=== PATIENT | male | born 1950 | race Caucasian/White ===

== ENCOUNTER 2018-04-21 16:11 | Emergency (ER) | payer MEDICARE, MEDICAID ==
--- NOTE | 2018-04-21 17:29 | ED ---
HPI Chest Pain - HPI Summary HPI Summary: A 67 y/o male brought in by [facility] ambulance presents to [facility] with a chief complaint of CP since 15:20 that has since resolved. The patient was given four aspirin and two NTG in the ambulance, but states his pain was not resolved until later in the ED. He rated his pain as a 4/10 in the ambulance. The patient , after working out and sweating on an elliptical, bent over to tie his shoe, and felt CP. He denies any radiating pain. He tried to rest but that would not alleviate his pain. The patient states that he could not find out what his problem was, which made the patient anxious. The patient has a Hx of HTN and HLD and takes medication. He sees Dr. Lopez once per year and states that he has had a "scan showing some blockage and valve issues". The patient usually works out every other day but [facility] worked out two days in a row. The patient states that the only similar situation was when he was brought in by ambulance to the ED in 2010 for weakness and dizziness. The patient reports a FHx of cardiac disease. Aggravating factors are bending over and deep breaths. There are no alleviating factors. The patient reports being able to ambulate without any issues. The patient is a nonsmoker and denies leg swelling. - History of Current Complaint Chief Complaint: EDChestPainROMI Time Seen by Provider: 04/21/18 17:12 Hx Obtained From: Patient Timing: Intermittent Pain Intensity: 4 - DECK HAND Pain Scale Used: 0-10 Numeric Chest Pain Location: Diffuse Chest Pain Radiates: No Character: Other: - disturbance Aggravating Factor(s): Position - bending over, Deep Breaths Alleviating Factor(s): Nothing Associated Signs and Symptoms: Positive: Diaphoresis. Negative: Swelling, Fever - Allergy/Home Medications Allergies/Adverse Reactions: Allergies Allergy/AdvReac Type Severity Reaction Status Date / Time lisinopril Allergy Coughing Verified 04/21/18 17:07 niacin Allergy Rash Verified 04/21/18 17:07 Home Medications: Home Medications Aspirin EC TAB* [Ecotrin EC Low Dose 81 MG*] 81 mg PO DAILY 04/21/18 [History Confirmed 04/21/18] Cholecalciferol (Vitamin D3) [Vitamin D3] 2,000 unit PO DAILY 04/21/18 [History Confirmed 04/21/18] Icosapent Ethyl [Vascepa] 2 gm PO BID 04/21/18 [History Confirmed 04/21/18] LoraTADine TAB(NF) [Claritin 10 MG TAB(NF)] 10 mg PO DAILY 04/21/18 [History Confirmed 04/21/18] Losartan TAB* [Cozaar TAB*] 50 mg PO DAILY 04/21/18 [History Confirmed 04/21/18] Methylphenidate HCl [Methylphenidate ER] 20 mg PO DAILY 04/21/18 [History Confirmed 04/21/18] Multivitamins/Minerals TAB* [Theragran/minerals TAB*] 1 tab PO DAILY 04/21/18 [ History Confirmed 04/21/18] Rosuvastatin (NF) [Crestor (NF)] 10 mg PO DAILY 04/21/18 [History Confirmed ] Rosuvastatin (NF) [Crestor (NF)] 10 mg PO DAILY 04/21/18 [History Confirmed ] Testosterone GEL (NF) [Androgel (NF)] 100 mg TOPICAL DAILY 04/21/18 [History Confirmed 04/21/18] Triamterene/HCTZ 37.5-25 MG* [Dyazide CAP*] 1 cap PO DAILY 04/21/18 [History Confirmed 04/21/18] Ubidecarenone/Vit E/Vit E Mix [Co-Enzyme Q10 100 mg Softgel] 1 cap PO DAILY [History Confirmed 04/21/18] Zolpidem TAB* [Ambien*] 5 - 10 mg PO BEDTIME PRN 04/21/18 [History Confirmed ] PMH/Surg Hx/FS Hx/Imm Hx Endocrine/Hematology History: Denies: Hx Diabetes Cardiovascular History: Reports: Hx Hypercholesterolemia, Hx Hypertension Denies: Hx Pacemaker/ICD History: Denies: Hx Renal Disease Sensory History: Denies: Hx Hearing Aid Psychiatric History: Reports: Hx Attention Deficit Hyperactivity Disorder Denies: Hx Panic Disorder - Surgical History Surgery Procedure, Year, and Place: STAPECTOMY - W/ STAPES IMPLANT 1991 OR 1992 - [facility]IMENEZ TEFLOW/PLATINIUM IAM PROSTHESIS - NON FERROUS XOMED - 1.5T ONLY - REVIEWED BY DR ABBOTT( LETTER FROM SURGEON SCANNED INTO EMR). DEVIATED SEPTUM Infectious Disease History: No Infectious Disease History: Denies: Traveled Outside the [place] in Last 30 Days - Family History Known Family History: Positive: Cardiac Disease, Diabetes - Social History Alcohol Use: Daily Substance Use Type: Reports: Marijuana Hx Tobacco Use: No Smoking Status (MU): Never Smoked Tobacco Review of Systems Positive: Skin Diaphoresis - DECK HAND. Negative: Fever Positive: Chest Pain - DECK HAND, resolved in ED Negative: Edema All Other Systems Reviewed And Are Negative: Yes Physical Exam - Summary Physical Exam Summary: Appearance: The patient is well-nourished in no acute distress and in no acute pain. Skin: The skin is warm and dry and skin color reflects adequate perfusion. HEENT: The head is normocephalic and atraumatic. The pupils are equal and reactive. The conjunctivae are clear and without drainage. Nares are patent and without drainage. Mouth reveals moist mucous membranes and the throat is without erythema and exudate. The external ears are intact. The ear canals are patent and without drainage. The tympanic membranes are intact. Neck: The neck is supple with full range of motion and non-tender. There are no carotid bruits. There is no neck vein distension. Respiratory: Chest is non-tender. Lungs are clear to auscultation and breath sounds are symmetrical and equal. Cardiovascular: Heart is regular rate and rhythm. There is no murmur or rub auscultated. There is no peripheral edema and pulses are symmetrical and equal. Abdomen: The abdomen is soft and non-tender. There are normal bowel sounds heard in all four quadrants and there is no organomegaly palpated. Musculoskeletal: There is no back tenderness noted. Extremities are non-tender with full range of motion. There is good capillary refill. There is no peripheral edema or calf tenderness elicited. Neurological: Patient is alert and oriented to person, place and time. The patient has symmetrical motor strength in all four extremities. Cranial nerves are grossly intact. Deep tendon reflexes are symmetrical and equal in all four extremities. Psychiatric: The patient has an appropriate affect and does not exhibit any anxiety or depression. Triage Information Reviewed: Yes Vital Signs On Initial Exam: Initial Vitals Temp Pulse Resp BP Pulse Ox 97.7 F 82 16 135/86 97 04/21/18 16:13 04/21/18 16:13 04/21/18 16:13 04/21/18 16:13 04/21/18 16:13 Vital Signs Reviewed: Yes Diagnostics - Vital Signs Vital Signs Temp Pulse Resp BP Pulse Ox 04/21/18 17:03 85 15 116/65 97 04/21/18 17:01 76 97 04/21/18 16:13 97.7 F 82 16 135/86 97 - Laboratory Result Diagrams: 04/21/18 17:56 04/21/18 17:56 Lab Statement: Any lab studies that have been ordered have been reviewed, and results considered in the medical decision making process. - Radiology CXR Radiology Interpretation Completed By: Radiologist Summary of Radiographic Findings: No radiographic evidence of acute cardiopulmonary disease. ED physician has reviewed this imaging report. - EKG 16:19 Cardiac Rate: NL - 77 bpm EKG Rhythm: Sinus Rhythm Summary of EKG Findings: Normal sinus rhythm, normal ST, no ectopy, no STEMI. Similar to previous EKG done 01/28/11 Re-Evaluation - Re-Evaluation First Eval Re-Evaluation Time: 18:55 Chest Pain Course/Dx - Course Course Of Treatment: Mr. Villalobos presented to the emergency department with an atypical chest pain that did come on while he was exercising. He has risk factors of hypertension and high cholesterol as well as a family history. He lost 25 pounds over the last year or so by taking up an exercise program. He generally exercises every other day and exercised yesterday without any complaints. He was feeling improved by the time he got to the emergency department although he states that he did not get immediate improvement with EMS treatment. His initial laboratory work including a d-dimer and troponin are negative and he is awaiting a delayed troponin at this time - Diagnoses Provider Diagnoses: Chest pain Discharge - Sign-Out/Discharge Documenting (check all that apply): Sign-Out Patient Signing out patient TO: Dangelo Macias - Discharge Plan Condition: Stable Referrals: Good Hernandez MD [Primary Care Provider] - - Billing Disposition and Condition Condition: STABLE - Attestation Statements Document Initiated by Tuan: Yes Documenting Scribe: David Rosario Provider For Whom Tuan is Documenting (Include Credential): Dangelo Russell MD Scribe Attestation: David Lugo scribed for Dangelo Russell MD on 04/21/18 at 1903. Scribe Documentation Reviewed: Yes Provider Attestation: The documentation as recorded by the scribe, David Rosario accurately reflects the service I personally performed and the decisions made by me, Dangelo Russell MD Status of Scribe Document: Viewed
--- OUTSIDE RECORDS SUMMARY | 2018-04-21 17:46 | XMS REPORT | Continuity of Care Document ---
:1950 External Reference #:[id number] Author Name Sheba Rouse Care Team Providers Name Role Phone Good Hernandez MD Primary Care Physician Unavailable Payers Type Date Identification Numbers Payment Provider Subscriber Policy Number: [id number] Medicare Ranjan Villalobos PayID: [id number] [address] [place] [address] Expires: 2017 Policy Number: [id number] Medicare Ranjan Villalobos PayID: [id number] [address] [place] [address] Effective: 2011 Policy Number: [id number] [employer] Ranjan Villalobos Expires: 2013 PayID: [id number] [address] [address] [place] [address] Effective: 2009 Policy Number: [id number] Medicaid Ranjan Villalobos Expires: 2011 PayID: [id number] [address] [place] [address] Effective: 2007 Policy Number: [id number] [employer] [place] Ranjan Villalobos Expires: 2010 PayID: [id number] [address] [address] [place] [address] Policy Number: [id number] Medicaid Ranjan Villalobos Group Name: 1 1 [address] PayID: [id number] [place] [address] Advance Directives Type Date Description Status Comment Other Directive 05/06/2017 Health Care Proxy Current and Verified Problems Date Description Provider Status Onset: 04/04/2007 Pure hypercholesterolemia Arcadio Renee M.D.,FACP Onset: 04/04/2007 Benign essential hypertension Good Hernandez Active Christie,FACP Onset: 04/04/2007 Attention deficit hyperactivity Good Hernandez Active disorder Christie,FACP Onset: 12/22/2007 Coronary arteriosclerosis Arcadio Renee M.D., FACP Note: on CTA Onset: 05/11/2012 Insomnia Good Hernandez M.D.,FACP Active Onset: 05/13/2012 Benign prostatic hypertrophy Good Hernandez M.D.,MERVINP Active without outflow obstruction Onset: 02/20/2013 Impotence of organic origin Good Hernandez M.D.,FACP Active Onset: 04/29/2015 Empty sella syndrome Good Hernandez M.D.,FACP Active Note: incidental on MRI Onset: 07/24/2016 Aortic valve stenosis Good Hernandez M.D.,FACP Active Note: mild Onset: 01/07/2017 Obstructive sleep apnea Good Hernandez M.D.,HUBER Active syndrome Note: on CPAP Onset: 02/14/2008 Mixed hyperlipidemia Good Hernandez M.D.,FACP Inactive Inactive: 08/19/2012 Onset: 08/12/2016 Difficulty breathing Fadia Khan MD Inactive Inactive: 10/08/2016 Onset: 08/19/2012 Impaired fasting glycaemia Good Hernandez M.D.,FACP Resolved Resolved: 07/21/2017 Family History Date Family Member(s) Problem(s) Comments General Diabetes General Heart Disease Father due to Heart () - at Disease age 77 Father [place] at 52 Father Diabetes, Non Insulin Dependent Mother Heart Disease in 80s : (age 88 Mother due to Heart Years) Disease Siblings 1 Healthy Maternal Uncles Heart Disease Social History Type Date Description Comments Sex Unknown Marital Status 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 Tobacco Use Start: Unknown Never Smoked Cigarettes ETOH Use 05/06/2017 Currently consumes 1 glass every other alcohol day ETOH Use consumes 3-4 glasses per week Recreational Drug Use Occasional marijuana use Tobacco Use Start: Unknown Patient has never smoked Smoking Status Reviewed: 12/12/18 Patient has never smoked Exercise Type/Frequency Exercises regularly 1 hour every other day Allergies, Adverse Reactions, Alerts Date Description Reaction Status Severity Comments 03/22/2012 Niacin Active severe flushing 05/23/2013 Lisinopril Active cough 06/01/2017 Atorvastatin Active Moderate muscle pain, elevated CPK levels 04/04/2007 NKDA Inactive Medications Medication Date Status Form Strength Qnty SIG Indications Ordering Provider Repatha 04/07 Active Soln 140mg/ml 6ml inject Prefill once every F. Syringe 2 weeks. Christie Lopez Methylphenidate 12/28 Active Capsules ER 20mg 30cap 1 by mouth F90.8 Good Hydrochloride ER s every Jimena Hernandez morning M.DRebecca,FACNena Androgel Pump 09/20 Active Gel 20.25mg/A 75gm [address] topical Jimena Hernandez (1.62%) daily M.D.,FACP Vascepa 01/16 Active Capsules 1gm 120ca take two ps capsules Jimena Hernandez, by mouth M.DRebecca,FACP twice a day as directed Losartan 01/07 Active Tablets 50mg 90tab 1 by mouth s every day Jimena Hernandez M.D.,FACP Co-Enzyme Q10 09/30 Active Capsules 100mg 1 tab bid R73.01 Libertad Lopez M.D. Lasanoprost 08/11 Active 2 drops nightly as directed Multi For Him 07/02 Active Capsules once a day Jimena Hernandez M.D.,FACP Triamterene/[place] 11/05 Active Tablets 37.5-25mg 90tab take one chlorothiazide s tablet by Jimena Hernandez mouth once M.DRebecca,FACP daily Saw [place] 02/13 Active Capsules Not Sure 2 tabs PO qd Jimena Hernandez M.D.,FACP Zolpidem Tartrate 11/13 Active Tablets 10mg 30tab 1/2-1 s tablet by Jimena Hernandez mouth M.DRebecca,FACP every night at bedtime as needed mdd 1 Loratadine Active Tablets 10mg 30tab 1 tablet Unknown /0000 s daily Vitamin D-3 Active Capsules 2000Unit 1 by mouth Unknown /0000 every day Aspirin Active Tablets 81mg 1 by mouth Unknown /0000 every day Vyvanse 12/15 Hx Capsules 20mg 30cap 1 by mouth F90.8 Good /2017 s every Jimena Hernandez, - morning [facility] 12/28 Dexmethylphenidat 12/08 Hx Tablets 10mg 60tab 1 tab PO F90.8 Good e HCL /2017 s in Am, 1 D. Mary, - po in M.D.,FACP 12/15 early afternoon prn Methylphenidate 12/03 Hx Capsules ER 20mg 60cap 1 cap by F90.8 Venancio Hernandez HCL ER (CD) /2017 s mouth bid Jimnea Hernandez, - prn [facility] 12/08 Methylphenidate 10/25 Hx Tablets ER 27mg 60tab 1 by mouth F90.8 Nicola HCL ER /2017 s every [place] - morning, 1 , M.D. 12/03 in afternoon as needed Testosterone 07/21 Hx Solution 30mg/Act 180ml 2 pumps E29.1 Good under each Jimena Hernandez, - arm daily M.D.,[facility] 09/20 (4 total) Atorvastatin 06/01 Hx Tablets 20mg 90tab take 1 I25.10 Good Calcium s tablet at Jimena Hernandez, - bedtime M.D.,[facility] 06/01 Crestor 06/01 Hx Tablets 10mg 90tab take 1 I25.10 Good s tablet Jimena Hernandez, - every day M.D.,[facility] 04/06 Naproxen 05/06 Hx Tablets 500mg 14tab 1 by mouth Good s twice a DRebecca Hernandez, - day as M.D.,[facility] 07/13 Aspirin 01/[address] 325mg 1/2 by Good mouth Jimena Hernandez, - every day M.D.,[facility] 05/06 Crestor 09/30 Hx Tablets 10mg 90tab take 1 I25.10 s tablet Jimena Hernandez, - once daily M.D.,FACP 06/01 directed Crestor 09/21 Hx Tablets 5mg 1 by mouth I25.10 every day F. - Mauser, 09/29 M.D. Co-Enzyme Q10 08/12 Hx Capsules 200mg 90cap 2 by mouth R73.01 s every F. - morning Mauser, 09/30 and 2 M.D. every night Lovaza 08/11 Hx Capsules 1gm take two capsules - by mouth 01/16 twice a day Chlorpheniramine 03/09 Hx Tablets 4mg bid prn Good Jimena Hernandez, - M.D.,FACP 06/25 Fluticasone 08/29 Hx Suspension 50mcg/Act 16gm 2 sprays R05 [place] Propionate each [place]ara - nostril , MRebeccaD. 06/25 Benzonatate 08/01 Hx Capsules 200mg 30cap not taking s by mouth Jimena Hernandez, - three M.D.,FACP 06/25 times day as needed Mucinex 08/01 Hx Tablets ER 600mg 20tab twice a 12HR s day as Jimena Hernandez, - needed M.D.,FACP 06/25 Amoxicillin 08/01 Hx Capsules 500mg 40cap 2 tabs by Good s mouth Jimena Hernandez, - twice a M.D.,FACP 08/11 day for days Aspirin 07/02 Hx Tablets 81mg 1 by mouth Good every day Jimena Hernandez, - (pt states M.D.,FACP 01/07 he takes 05/04 aspirin 325mg nightly) Methylphenidate 07/02 Hx Capsules ER 20mg 90cap 1-2 by F90.8 Good HCL ER () s mouth Jimena Hernandez, - every M.D.,FACP 10/25 morning, and 1 tab in at afternoon as needed Axiron 05/08 Hx Solution 30mg/Act 180ml 2 pumps E29.1 under each Jimena Hernandez, - arm daily M.D.,FACP 07/21 (4 total) Losartan 05/01 Hx Tablets 25mg 90tab take one s tablet by Jimena Hernandez, - mouth once M.D.,FACP 01/07 daily directed Cozaar 05/06 Hx Tablets 25mg 90tab Take One s Tablet By Jimena Hernandez, - Mouth Once M.D.,FACP 05/01 Daily Directed Maxzide-25 04/25 Hx Tablets 37.5-25mg 90tab Take One s Tablet By Jimena Hernandez, - Mouth Once M.D.,FACP 11/05 Daily Directed Cephalexin 02/23 Hx Capsules 500mg 14cap 1 tab by 709.9 s mouth two Nye, [employer]TING [employer] - times a 03/13 day x days Methylphenidate 12/13 Hx Capsules ER 20mg 90cap 1-2 by Good BERNAL ER () s mouth Jimena Hernandez, - every M.D.,FACP 03/18 morning, and 1 tab in at night as needed Ibuprofen 09/29 Hx Tablets 800mg 60tab take 1 724.2 Nena s tablet 3 Ursula, - times a N.P. . Vascepa 05/05 Hx Capsules 1gm 120ca take two E78.2 ps capsules Jimena Hernandez, - by mouth M.D.,FACP 08/11 twice a day as directed Viagra 02/20 Hx Tablets 50mg 10tab 1 po prn 607.84 Good s Jimena Hernandez, - M.D.,FACP 12/27 Crestor 02/20 Hx Tablets 10mg 90tab take 12 I25.10 Good s tablet Jimena Hernandez, - once daily M.D.,FACP 09/21 directed 09/02/16 decreased by [facility] Methylphenidate 11/15 Hx Capsules ER 20mg 90cap 1-2 by Good BERNAL s mouth Jimena Hernandez, - every M.D.,FACP 12/13 morning, and 1 tab in at night as needed Voltaren 07/11 Hx Gel 1% 100g apply 1 gms to Jimena Hernandez, - affected Christie,[facility] 08/19 area bid prn Zyflamed 05/13 Hx 600.00 Renzo Shannon M.D.,[facility] 07/11 Triamterene/[place] 04/14 Hx Tablets 37.5-25mg 90tab 1 po qd Good chlorothiazide s Renzo Shannon M.D.,[facility] 04/25 Amoxicillin 03/22 Hx Tablets 500mg 40tab 2 tabs po 461.0 s bid for 10 D. Mary, - days Radha.Jimena,[facility] 05/13 Viagra 02/08 Hx Tablets 50mg 10tab 1 po prn 607.84 Good Renzo Omer M.D.,[facility] 02/15 Aspirin 07/08 Hx Tablets 325mg 90tab 1 po qd Renzo Omer M.D.,[facility] 07/02 Ritalin [place] 06/01 Hx Caps ER 20mg 90cap 1 po tid 24HR Renzo Omer M.D.,[facility] 11/15 Lipitor 05/19 Hx Tablets 10mg 30tab Take One 414.01 s Tablet By Jimena Hernandez, - Mouth Once M.DRebecca,[facility] 02/20 Daily Metadate CD 04/05 Hx Capsules ER 20mg 90cap 1-2 po bid Good Renzo Omer M.D.,[facility] 06/01 Simvastatin 04/05 Hx Tablets 20mg 30tab 1 po qpm 414.0 Renzo Omer M.D.,[facility] 05/19 Methylphenidate 03/25 Hx Caps ER 20mg 90cap 1 po tid Good 24HR Renzo Omer M.D.,[facility] 04/05 Maxzide-25 09/15 Hx Tablets 37.5-25mg 30tab 1 po qd 302.72 Renzo Omer M.D.,[facility] 05/13 Lipitor 04/10 Hx Tablets 10mg 30tab Take One 414.0 s Tablet By Jimena Hernandez, - Mouth Christie,[facility] 04/05 Every Ritalin [place] 03/21 Hx Caps ER 20mg 90cap 1 po tid 24HR s Renzo Shannon M.D.,[facility] 03/25 Levaquin 03/17 Hx Tablets 750mg 7tabs once daily 466.0 Tigist Muller M.D. 03/20 Ibuprofen 03/15 Hx Tablets 600mg 60tab tid PO for 715.15 s 1 wk with Jimena Hernandez, - food, then Christie,[facility] 05/17 prn Multivitamins 02/13 Hx Tablets 90tab 1 po qd s Renzo Shannon M.D.,[facility] 02/08 Crestor 02/13 Hx Tablets 5mg 30tab 1 tablet 414.0 s po qpm Renzo Shannon M.D.,[facility] 04/10 Relenza Diskhaler 08/17 Hx Aerosol 5mg/Blist 10d 1 er inhalatino Jimena Hernandez, - q24h for Christie,[facility] 11/13 Dyazide 02/13 Hx Caps 37.5-25mg 90cap Take One 302.72 s Capsule By Jimena Hernandez - Mouth Christie,[facility] 09/15 Morning Lovaza 02/13 Hx Capsules 1gm 120ca Take Two 272.2 ps Capsules Jimena Hernandez, - By Mouth Christie,[facility] 05/05 Twice A /2013 Day Niaspan 12/21 Hx Tablets ER 500mg 45tab 1-2 PO QHS s Renzo Shannon M.D.,[facility] 02/13 Crestor 12/20 Hx Tabs 10mg 30tab Take One 272.0 s Tablet By Renzo Shannon M.D.,[facility] 02/13 Day Fish Oil 12/19 Hx Capsules 1000mg 1 PO qhs 272.2 Renzo Shannon M.D.,[facility] 02/13 Methylphenidate 09/01 Hx Tablets 20mg 90tab 1 po tid s prn Renzo Shannon M.D.,[facility] 03/21 Tamiflu 07/07 Hx Capsules 75mg 10cap 1 po bid x s 5 days Renzo Shannon M.D.,[facility] 10/24 Ambien 05/10 Hx Tablets 10mg 30tab 1/2-1 qhs s prn Renzo Shannon M.D.,[facility] 11/13 Lipitor 04/04 Hx Tablets 10mg 90tab 1 po qd 272.0 Renzo Omer M.D.,[facility] 12/20 Lisinopril/Hydroc Hx Tablets 10-12.5 30tab 1 po qd 302.72 Venancio Hernandez hlorothiazide /0000 Renzo Omer M.D.,[facility] 02/13 Methylphenidate Hx Tablets ER 20mg 90tab 1tab tid Good HCL ER /0000 Renzo Omer M.D.,[facility] 08/30 Ritalin [place] Hx Caps ER 20mg 90cap 1 po tid Good / 24HR Renzo Omer M.D.,[facility] 09/01 Aspir-Kim Hx Tablets DR 325mg 30tab qd PO Unknown /0000 s - 07/08 Xalatan Hx Solution 0.005% ou qhs 1 Unknown /0000 ggt - 08/11 Losartan Hx Tablets 25mg 90tab 1 po qd Good Potassium /0000 Renzo Omer M.D.,[facility] 05/06 Benadryl Hx Cream 1-0.1% 28.30 apply to Unknown /0000 0gm affected - area twice 02/08 Zyflomeng Hx 600.00 Unknown /0000 - 05/13 Magdi 00 Hx 2 po qd Unknown /0000 - 12/13 Ruba Johnson Hx Capsules 550mg 1 tablet Unknown /0000 morning, 1 - tablet 04/29 before /2014 Glucosamine Hx Capsules 1500Com 1 by mouth Unknown Chondroitin 1500 /0000 every day Complex - 07/02 [place] Hx Capsules 565mg Unknown /0000 - 07/02 Garlic Oil Hx Capsules 2mg daily Unknown /0000 - 12/27 Immunizations CPT Code Status Date Vaccine Reaction Lot # [id number] Given 03/30/2018 Pneumococcal Conjugate [id number] Vaccine 13 Valent For Intramuscular Use 02179 Given 03/16/2018 Influenza Virus Vaccine, Quadrivalent, Split, Preservative Free 18836 Given 01/07/2017 Influenza Virus Vaccine, [id number] Quadrivalent, Split, Preservative Free 20773 Given 01/30/2015 Influenza Virus Vaccine, no complaints, no [id number] Quadrivalent, Split, reaction Preservative Free 44639 Given 12/13/2013 Zoster (Zostavax) [id number] 80038 Given 02/20/2013 Flu Vaccine Split Virus [id number] Preservative Free For Indiv 3Yr Older [id number] Given 02/09/2012 Fluzone Vaccine [id number] 52889 Given 07/09/2011 Tdap - [id number] Tetanus/Diptheria/Acellular Pertussis 91996 Given 07/09/2011 Influenza Virus 3Yrs & Over [id number] 27385 Given 02/09/2010 Influenza Virus 3Yrs & Over 63035 Given 05/18/2000 Td Toxoids Adsorbed For Use 7Yrs Or Older For Intramuscular Use Vital Signs Date Vital Result Comment 04/13/2018 9:18am Height 65.5 inches 5'5.50" Weight 158.25 lb Heart Rate 78 /min BP Systolic Sitting 140 mmHg Lue regular cuff BP Diastolic Sitting 80 mmHg Lue regular cuff Respiratory Rate 12 /min O2 % BldC Oximetry 98 % BMI (Body Mass Index) 25.9 kg/m2 03/30/2018 2:18pm Height 65.5 inches 5'5.50" Weight 149.00 lb Heart Rate 75 /min BP Systolic Sitting 138 mmHg BP Diastolic Sitting 70 mmHg Body Temperature 96.3 F O2 % BldC Oximetry 98 % BMI (Body Mass Index) 24.4 kg/m2 12/28/2017 8:28am Height 65.5 inches 5'5.50" Weight 154.00 lb Heart Rate 72 /min BP Systolic Sitting 128 mmHg BP Diastolic Sitting 77 mmHg O2 % BldC Oximetry 96 % BMI (Body Mass Index) 25.2 kg/m2 07/21/2017 12:54pm Height 65.5 inches 5'5.50" Weight 158.00 lb Heart Rate 84 /min BP Systolic Sitting 160 mmHg BP Diastolic Sitting 90 mmHg BP Systolic Recheck 145 mmHg BP Diastolic Recheck 84 mmHg Body Temperature 96.9 F O2 % BldC Oximetry 97 % BMI (Body Mass Index) 25.9 kg/m2 07/14/2017 9:09am Height 66 inches 5'6" Weight 158.38 lb w/shoes Heart Rate 86 /min BP Systolic 118 mmHg L/Arm Reg Cuff BP Diastolic 58 mmHg L/Arm Reg Cuff BP Systolic Sitting 114 mmHg la repeat repeat sitting BP Diastolic Sitting 68 mmHg la repeat repeat sitting O2 % BldC Oximetry 94 % room air, pt req check BMI (Body Mass Index) 25.6 kg/m2 Ejection Fraction 55-60% Echocardiogram 07/22/2016 05/06/2017 10:10am Weight 173.00 lb Heart Rate 83 /min BP Systolic Sitting 134 mmHg BP Diastolic Sitting 80 mmHg Body Temperature 97.9 F O2 % BldC Oximetry 96 % 04/21/2017 9:04am Height 66 inches 5'6" Weight 174.00 lb w/o shoes Heart Rate 76 /min reg BP Systolic Sitting 136 mmHg Lue, lg cuff BP Diastolic Sitting 86 mmHg Lue, lg cuff Respiratory Rate 16 /min O2 % BldC Oximetry 97 % on Ra BMI (Body Mass Index) 28.1 kg/m2 01/07/2017 10:03am Weight 173.50 lb Heart Rate 78 /min BP Systolic Sitting 160 mmHg BP Diastolic Sitting 88 mmHg BP Systolic Recheck 158 mmHg BP Diastolic Recheck 88 mmHg Body Temperature 96.8 F O2 % BldC Oximetry 98 % 10/14/2016 10:46am Height 66 inches 5'6" Weight 174.00 lb Heart Rate 90 /min BP Systolic Sitting 144 mmHg BP Diastolic Sitting 90 mmHg Respiratory Rate 20 /min O2 % BldC Oximetry 97 % room air BMI (Body Mass Index) 28.1 kg/m2 09/21/2016 1:25pm Height 66 inches 5'6" Weight 172.25 lb w/o shoes Heart Rate 92 /min BP Systolic Sitting 136 mmHg LA reg cuff BP Diastolic Sitting 88 mmHg LA reg cuff BMI (Body Mass Index) 27.8 kg/m2 Ejection Fraction 55% - 60% echo 07/22/16 08/12/2016 2:21pm Height 66 inches 5'6" Weight 172.50 lb w/o shoes Heart Rate 102 /min BP Systolic Sitting 152 mmHg LA reg cuff BP Diastolic Sitting 78 mmHg LA reg cuff BP Systolic Standing 131 mmHg la repeat sitting BP Diastolic Standing 72 mmHg la repeat sitting BMI (Body Mass Index) 27.8 kg/m2 Ejection Fraction 55% - 60% echo 07/22/16 08/12/2016 10:07am Height 66 inches 5'6" Weight 170.00 lb Heart Rate 81 /min BP Systolic Sitting 136 mmHg BP Diastolic Sitting 82 mmHg Respiratory Rate 16 /min O2 % BldC Oximetry 97 % BMI (Body Mass Index) 27.4 kg/m2 Neck Circumference in inches 16.5 06/25/2016 1:51pm Height 66 inches 5'6" Weight 170.12 lb Heart Rate 84 /min BP Systolic Sitting 144 mmHg BP Diastolic Sitting 80 mmHg BP Systolic Recheck 138 mmHg BP Diastolic Recheck 78 mmHg Body Temperature 97.2 F O2 % BldC Oximetry 98 % BMI (Body Mass Index) 27.5 kg/m2 08/30/2015 11:48am Height 66.0 inches 5'6" Weight 167.00 lb Heart Rate 70 /min BP Systolic Sitting 158 mmHg BP Diastolic Sitting 90 mmHg Body Temperature 96.9 F O2 % BldC Oximetry 97 % BMI (Body Mass Index) 27.0 kg/m2 08/02/2015 9:39am Height 66.0 inches 5'6" Weight 166.00 lb Heart Rate 100 /min BP Systolic Sitting 118 mmHg BP Diastolic Sitting 80 mmHg Body Temperature 97.7 F O2 % BldC Oximetry 96 % BMI (Body Mass Index) 26.8 kg/m2 07/03/2015 10:14am Height 66.0 inches 5'6" Weight 165.38 lb Heart Rate 78 /min BP Systolic Sitting 142 mmHg BP Diastolic Sitting 88 mmHg Body Temperature 96.4 F O2 % BldC Oximetry 98 % BMI (Body Mass Index) 26.7 kg/m2 05/08/2015 4:38pm Height 66.0 inches 5'6" Heart Rate 95 /min BP Systolic Sitting 132 mmHg BP Diastolic Sitting 84 mmHg Respiratory Rate 14 /min Body Temperature 97.9 F Pain Level 0 O2 % BldC Oximetry 97 % 04/29/2015 9:53am Height 66.0 inches 5'6" Weight 176.38 lb Heart Rate 76 /min BP Systolic Sitting 150 mmHg BP Diastolic Sitting 82 mmHg Respiratory Rate 14 /min Body Temperature 96.9 F Pain Level 0 O2 % BldC Oximetry 97 % BMI (Body Mass Index) 28.5 kg/m2 03/20/2015 9:14am BP Systolic 155 mmHg home machine BP Diastolic 91 mmHg home machine BP Systolic Sitting 128 mmHg manual cuff BP Diastolic Sitting 80 mmHg manual cuff 03/18/2015 4:39pm Height 65.5 inches 5'5.50" Weight 173.25 lb Heart Rate 90 /min BP Systolic Sitting 137 mmHg BP Diastolic Sitting 77 mmHg Body Temperature 97.5 F O2 % BldC Oximetry 97 % BMI (Body Mass Index) 28.4 kg/m2 02/13/2015 1:07pm Height 65.5 inches 5'5.50" Weight 170.00 lb Heart Rate 63 /min BP Systolic Sitting 159 mmHg BP Diastolic Sitting 103 mmHg Respiratory Rate 18 /min Pain Level 3 BMI (Body Mass Index) 27.9 kg/m2 01/30/2015 10:48am Height 65.5 inches 5'5.50" Weight 171.00 lb Heart Rate 79 /min BP Systolic Sitting 138 mmHg BP Diastolic Sitting 89 mmHg Body Temperature 98.0 F O2 % BldC Oximetry 97 % BMI (Body Mass Index) 28.0 kg/m2 10/23/2014 11:39am Height 66 inches 5'6" Weight 171.50 lb Heart Rate 79 /min BP Systolic Sitting 126 mmHg BP Diastolic Sitting 78 mmHg Body Temperature 97.8 F O2 % BldC Oximetry 96 % BMI (Body Mass Index) 27.7 kg/m2 03/13/2014 2:09pm Weight 171.25 lb Heart Rate 66 /min BP Systolic Sitting 130 mmHg BP Diastolic Sitting 68 mmHg O2 % BldC Oximetry 94 % 02/23/2014 1:18pm Weight 168.75 lb Heart Rate 70 /min BP Systolic Sitting 146 mmHg BP Diastolic Sitting 72 mmHg Body Temperature 978.1 F O2 % BldC Oximetry 95 % 01/18/2014 9:24am Height 66 inches 5'6" Weight 175.00 lb Heart Rate 60 /min BP Systolic Sitting 130 mmHg BP Diastolic Sitting 86 mmHg Body Temperature 98.4 F BMI (Body Mass Index) 28.2 kg/m2 12/13/2013 10:57am Height 66 inches 5'6" Weight 167.25 lb Heart Rate 80 /min BP Systolic Sitting 144 mmHg BP Diastolic Sitting 78 mmHg Body Temperature 97.5 F BMI (Body Mass Index) 27.0 kg/m2 09/29/2013 10:12am Weight 164.25 lb Heart Rate 76 /min BP Systolic Sitting 140 mmHg BP Diastolic Sitting 82 mmHg 08/01/2013 12:34pm Height 65.75 inches 5'5.75" Weight 161.00 lb Heart Rate 80 /min BP Systolic Sitting 120 mmHg BP Diastolic Sitting 78 mmHg Body Temperature 97.7 F BMI (Body Mass Index) 26.2 kg/m2 05/23/2013 9:53am Height 66.25 inches 5'6.25" Weight 164.25 lb Heart Rate 76 /min BP Systolic Sitting 138 mmHg BP Diastolic Sitting 78 mmHg BMI (Body Mass Index) 26.3 kg/m2 02/20/2013 9:34am Weight 163.75 lb Heart Rate 80 /min BP Systolic Sitting 132 mmHg BP Diastolic Sitting 87 mmHg 02/15/2013 10:34am Height 65.5 inches 5'5.50" Weight 162.00 lb Heart Rate 80 /min BP Systolic Sitting 142 mmHg Ra reg cuff BP Diastolic Sitting 90 mmHg Ra reg cuff BP Systolic Standing 154 mmHg Ra BP Diastolic Standing 96 mmHg Ra BMI (Body Mass Index) 26.5 kg/m2 08/19/2012 12:55pm Height 65.75 inches 5'5.75" Weight 157.50 lb Heart Rate 84 /min BP Systolic Sitting 110 mmHg BP Diastolic Sitting 72 mmHg BMI (Body Mass Index) 25.6 kg/m2 07/11/2012 2:43pm Height 65.5 inches 5'5.50" Weight 161.00 lb Heart Rate 80 /min BP Systolic Sitting 128 mmHg BP Diastolic Sitting 78 mmHg BMI (Body Mass Index) 26.4 kg/m2 05/13/2012 9:26am Height 66.25 inches 5'6.25" Weight 165.00 lb Heart Rate 68 /min BP Systolic Sitting 118 mmHg BP Diastolic Sitting 80 mmHg BMI (Body Mass Index) 26.4 kg/m2 03/22/2012 9:36am Height 66.25 inches 5'6.25" Weight 173.00 lb Heart Rate 80 /min BP Systolic Sitting 128 mmHg BP Diastolic Sitting 84 mmHg BMI (Body Mass Index) 27.7 kg/m2 02/09/2012 11:09am Height 65.75 inches 5'5.75" Weight 177.00 lb Heart Rate 74 /min BP Systolic Sitting 130 mmHg BP Diastolic Sitting 74 mmHg BMI (Body Mass Index) 28.8 kg/m2 10/30/2011 4:23pm Height 65.75 inches 5'5.75" Weight 172.00 lb Heart Rate 72 /min BP Systolic Sitting 120 mmHg BP Diastolic Sitting 78 mmHg Body Temperature 97.9 F lt ear BMI (Body Mass Index) 28.0 kg/m2 10/06/2011 4:37pm Height 65.75 inches 5'5.75" Weight 175.00 lb Heart Rate 78 /min BP Systolic Sitting 142 mmHg BP Diastolic Sitting 90 mmHg Body Temperature 96.7 F lt ear BMI (Body Mass Index) 28.5 kg/m2 09/01/2011 10:30am Height 65.75 inches 5'5.75" Weight 176.00 lb Heart Rate 86 /min BP Systolic Sitting 122 mmHg BP Diastolic Sitting 80 mmHg Body Temperature 97.4 F lt ear BMI (Body Mass Index) 28.6 kg/m2 07/09/2011 1:23pm Height 65.75 inches 5'5.75" Weight 170.00 lb Heart Rate 64 /min BP Systolic Sitting 128 mmHg L BP Diastolic Sitting 76 mmHg L BMI (Body Mass Index) 27.6 kg/m2 04/10/2010 1:45pm Height 65.75 inches 5'5.75" Weight 161.00 lb Heart Rate 96 /min BP Systolic Sitting 136 mmHg BP Diastolic Sitting 96 mmHg BMI (Body Mass Index) 26.2 kg/m2 03/17/2010 9:16am Height 65.75 inches 5'5.75" Weight 165.00 lb Heart Rate 84 /min BP Systolic Sitting 144 mmHg BP Diastolic Sitting 92 mmHg BMI (Body Mass Index) 26.8 kg/m2 05/17/2009 11:34am Height 65.75 inches 5'5.75" Weight 158.00 lb Heart Rate 66 /min BP Systolic Sitting 150 mmHg BP Diastolic Sitting 80 mmHg BMI (Body Mass Index) 25.7 kg/m2 03/15/2009 11:48am Height 65.75 inches 5'5.75" Weight 157.00 lb Heart Rate 74 /min BP Systolic Sitting 162 mmHg BP Diastolic Sitting 42 mmHg BMI (Body Mass Index) 25.5 kg/m2 02/13/2009 1:55pm Height 65.75 inches 5'5.75" Weight 155.00 lb Heart Rate 78 /min BP Systolic Sitting 138 mmHg BP Diastolic Sitting 82 mmHg BMI (Body Mass Index) 25.2 kg/m2 11/20/2008 9:04am Height 66 inches 5'6" Weight 152.00 lb Heart Rate 92 /min BP Systolic Sitting 122 mmHg BP Diastolic Sitting 76 mmHg BMI (Body Mass Index) 24.5 kg/m2 11/13/2008 8:39am Weight 152.75 lb Heart Rate 96 /min BP Systolic Sitting 124 mmHg BP Diastolic Sitting 82 mmHg 08/14/2008 8:42am Height 65.5 inches 5'5.50" Weight 153.00 lb Heart Rate 68 /min BP Systolic Sitting 118 mmHg BP Diastolic Sitting 70 mmHg BMI (Body Mass Index) 25.1 kg/m2 03/27/2008 11:23am Height 65.5 inches 5'5.50" Weight 154.00 lb Heart Rate 96 /min BP Systolic Sitting 124 mmHg left arm 132/74 BP Diastolic Sitting 80 mmHg left arm 132/74 BMI (Body Mass Index) 25.2 kg/m2 02/14/2008 9:01am Height 65.5 inches 5'5.50" Weight 153.00 lb Heart Rate 68 /min BP Systolic Sitting 126 mmHg BP Diastolic Sitting 62 mmHg BMI (Body Mass Index) 25.1 kg/m2 11/23/2007 8:43am Height 65.5 inches 5'5.50" Weight 160.00 lb Heart Rate 72 /min BP Systolic Sitting 108 mmHg BP Diastolic Sitting 68 mmHg BMI (Body Mass Index) 26.2 kg/m2 10/25/2007 2:49pm Height 65.5 inches 5'5.50" Weight 158.00 lb Heart Rate 80 /min BP Systolic Sitting 120 mmHg BP Diastolic Sitting 78 mmHg BMI (Body Mass Index) 25.9 kg/m2 04/04/2007 4:01pm Height 67 inches 5'7" Weight 168.00 lb Heart Rate 70 /min BP Systolic Sitting 112 mmHg BP Diastolic Sitting 78 mmHg BMI (Body Mass Index) 26.3 kg/m2 Results Test Date Facility Test Result H/L Range Note Lipid Profile 04/05/[address] [facility] Triglycerides 61 mg/dL 1 (Trig/Chol/HDL) [address] [place] [address] [phone] Cholesterol 211 mg/dL 2 HDL Cholesterol 69.9 mg/dL 3 LDL Cholesterol 129 mg/dL 4 Laboratory test 04/05/[address] [facility] Creatine 270 U/L High 10 -223 finding 101 Kinase(CK) [place], [place] [address] [phone] Lipid Profile 10/28/[address] [facility] Triglycerides 44 mg/dL 5 (Trig/Chol/HDL) [address] [place] [address] [phone] Cholesterol 209 mg/dL 6 HDL Cholesterol 59.0 mg/dL 7 LDL Cholesterol 141 mg/dL 8 Testosterone Free 10/28/[address] [facility] Free 7.87 3.47-13.0 9 & Total 101 Testosterone ng/[place] [address] ng/dl [phone] Testosterone 328 ng/dL 240-950 10 Comp Metabolic Panel 10/28/[address] [facility] Sodium 140 mmol/L N 135-[address] [place] [address] [phone] Potassium 4.2 mmol/L N 3.5-5.0 Chloride 103 mmol/L N 101-111 Co2 Carbon Dioxide 29 mmol/L N 22-32 Anion Gap 8 mmol/L N 2-11 Glucose 92 mg/dL N 70-100 Blood Urea Nitrogen 31 mg/dL High 6-24 Creatinine 1.25 mg/dL High 0.67-1.17 BUN/Creatinine Ratio 24.8 High 8-20 Calcium 9.5 mg/dL N 8.6-10.3 Total Protein 6.5 g/dL N 6.4-8.9 Albumin 4.4 g/dL N 3.2-5.2 Globulin 2.1 g/dL N 2-4 Albumin/Globulin Ratio 2.1 N 1-3 Total Bilirubin 0.60 mg/dL N 0.2-1.0 Alkaline Phosphatase 65 U/L N 34-104 Alt 33 U/L N 7-52 Ast 31 U/L N 13-39 Egfr Non- 58.0 >60 Egfr 70.1 >60 11 CBC Auto Diff 10/28/[address] [facility] White Blood 4.7 10^3/uL N 3.5-10.[address] [place] [address] [phone] Red Blood Count 5.47 10^6/uL High 4.00-5.40 Hemoglobin 15.8 g/dL N 14.0-18.0 Hematocrit 47 % N 42-52 Mean Corpuscular Volume 85 fL N 80-94 Mean Corpuscular Hemoglobin 29 pg N 27-31 Mean Corpuscular HGB Conc 34 g/dL N 31-36 Red Cell Distribution Width 15 % N 10.5-15 Platelet Count 287 10^3/uL N 150-450 Mean Platelet Volume 8.0 um3 N 7.4-10.4 Abs Neutrophils 3.0 10^3/uL N 1.5-7.7 Abs Lymphocytes 1.1 10^3/uL N 1.0-4.8 Abs Monocytes 0.4 10^3/uL N 0-0.8 Abs Eosinophils 0.2 10^3/uL N 0-0.6 Abs Basophils 0 10^3/uL N 0-0.2 Abs Nucleated RBC 0 10^3/uL Granulocyte % 62.9 % N 38-83 Lymphocyte % 23.2 % Low 25-47 Monocyte % 8.8 % High 0-7 Eosinophil % 4.3 % N 0-6 Basophil % 0.8 % N 0-2 Nucleated Red Blood Cells % 0 Laboratory test 10/28/[address] [facility] PSA Screening 4.318 High 0-4.000 [address] ng/[place] [address] [phone] Basic Metabolic 07/14/[address] [facility] Sodium 135 mmol/L N 133- [address] [place] [address] [phone] Potassium 3.9 mmol/L N 3.5-5.0 Chloride 99 mmol/L Low 101-111 Co2 Carbon Dioxide 28 mmol/L N 22-32 Anion Gap 8 mmol/L N 2-11 Glucose 94 mg/dL N 70-100 Blood Urea Nitrogen 38 mg/dL High 6-24 Creatinine 1.34 mg/dL High 0.67-1.17 BUN/Creatinine Ratio 28.4 High 8-20 Calcium 9.6 mg/dL N 8.6-10.3 Egfr Non- 53.7 >60 Egfr 69.0 >60 13 Laboratory test 07/14/[address] [facility] Hemoglobin A1c 5.7 % High 4.0-5.6 [address] (Glyco HGB) [place] [address] [phone] Creatine Kinase(CK) 294 U/L High 10-223 Testosterone 06/23/[address] [facility] Free 1.60 Abnormal 3.67- 13.9 15 Free & Total [address] Testosterone ng/[place] [address] ng/dl [phone] Testosterone 94 ng/dL Abnormal 240-950 16 Lipid Profile 06/01/[address] [facility] Triglycerides 41 mg/dL 17 (Trig/Chol/HDL) [address] [place] [address] [phone] Cholesterol 164 mg/dL 18 HDL Cholesterol 48.3 mg/dL 19 LDL Cholesterol 108 mg/dL 20 Comp Metabolic Panel 06/01/[address] [facility] Sodium 137 mmol/L N 133-[address] [place], [place] [id number] [phone] Potassium 4.3 mmol/L N 3.5-5.0 Chloride 102 mmol/L N 101-111 Co2 Carbon Dioxide 28 mmol/L N 22-32 Anion Gap 7 mmol/L N 2-11 Glucose 86 mg/dL N 70-100 Blood Urea Nitrogen 29 mg/dL High 6-24 Creatinine 1.33 mg/dL High 0.67-1.17 BUN/Creatinine Ratio 21.8 High 8-20 Calcium 9.4 mg/dL N 8.6-10.3 Total Protein 6.7 g/dL N 6.4-8.9 Albumin 4.4 g/dL N 3.2-5.2 Globulin 2.3 g/dL N 2-4 Albumin/Globulin Ratio 1.9 N 1-3 Total Bilirubin 0.70 mg/dL N 0.2-1.0 Alkaline Phosphatase 54 U/L N 34-104 Alt 38 U/L N 7-52 Ast 33 U/L N 13-39 Egfr Non- 54.1 >60 Egfr 69.6 >60 21 CBC Auto Diff 06/01/[address] [facility] White Blood 5.0 10^3/uL N 3.5-10.[address] [place] [address] [phone] Red Blood Count 5.63 10^6/uL High 4.0-5.4 Hemoglobin 16.1 g/dL N 14.0-18.0 Hematocrit 47 % N 42-52 Mean Corpuscular Volume 84 fL N 80-94 Mean Corpuscular Hemoglobin 29 pg N 27-31 Mean Corpuscular HGB Conc 34 g/dL N 31-36 Red Cell Distribution Width 14 % N 10.5-15 Platelet Count 287 10^3/uL N 150-450 Mean Platelet Volume 8 um3 N 7.4-10.4 Abs Neutrophils 3.3 10^3/uL N 1.5-7.7 Abs Lymphocytes 1.0 10^3/uL N 1.0-4.8 Abs Monocytes 0.5 10^3/uL N 0-0.8 Abs Eosinophils 0.1 10^3/uL N 0-0.6 Abs Basophils 0.1 10^3/uL N 0-0.2 Abs Nucleated RBC 0 10^3/uL Granulocyte % 66.0 % N 38-83 Lymphocyte % 19.6 % Low 25-47 Monocyte % 10.3 % High 1-9 Eosinophil % 2.6 % N 0-6 Basophil % 1.5 % N 0-2 Nucleated Red Blood Cells % 0.1 Laboratory test 06/01/[address] [facility] Testosterone 409.19 N 240-[address] Total ng/[place] [address] [phone] PSA Screening 4.591 ng/mL High 0-4.000 22 Erythrocyte Sed Rate 10 mm/Hr N 0-20 Laboratory test 11/17/[address] [facility] Creatine 188 U/L N 10- 223 [address] Kinase(CK) [place] [address] [phone] CBC Auto Diff 11/17/[address] [facility] White Blood 6.5 N 3.5- 10.[address] Count 10^3/uL [place], [place] [id number] [phone] Red Blood Count 5.73 10^6/uL High 4.0-5.4 Hemoglobin 16.2 g/dL N 14.0-18.0 Hematocrit 49 % N 42-52 Mean Corpuscular Volume 85 fL N 80-94 Mean Corpuscular Hemoglobin 28 pg N 27-31 Mean Corpuscular HGB Conc 33 g/dL N 31-36 Red Cell Distribution Width 15 % N 10.5-15 Platelet Count 286 10^3/uL N 150-450 Mean Platelet Volume 8 um3 N 7.4-10.4 Abs Neutrophils 4.1 10^3/uL N 1.5-7.7 Abs Lymphocytes 1.5 10^3/uL N 1.0-4.8 Abs Monocytes 0.6 10^3/uL N 0-0.8 Abs Eosinophils 0.2 10^3/uL N 0-0.6 Abs Basophils 0.1 10^3/uL N 0-0.2 Abs Nucleated RBC 0.01 10^3/uL N Granulocyte % 63.8 % N 38-83 Lymphocyte % 23.5 % Low 25-47 Monocyte % 8.9 % N 1-9 Eosinophil % 2.6 % N 0-6 Basophil % 1.2 % N 0-2 Nucleated Red Blood Cells % 0.1 N Laboratory test 11/17/[address] [facility] Testosterone 458.80 N 240-[address] Total ng/dL [place], [place] [id number] [phone] Lipid Panel - 10/28/[address] [facility] Creatine 444 U/L High 10- [address] Kinase(CK) [place] [address] [phone] Comp Metabolic 10/28/[address] [facility] Sodium 138 mmol/L N 133- [address] [place] [address] [phone] Potassium 3.7 mmol/L N 3.5-5.0 Chloride 102 mmol/L N 101-111 Co2 Carbon Dioxide 30 mmol/L N 22-32 Anion Gap 6 mmol/L N 2-11 Glucose 95 mg/dL N 70-100 Blood Urea Nitrogen 21 mg/dL N 6-24 Creatinine 1.33 mg/dL High 0.67-1.17 BUN/Creatinine Ratio 15.8 N 8-20 Calcium 9.2 mg/dL N 8.6-10.3 Total Protein 6.9 g/dL N 6.4-8.9 Albumin 4.3 g/dL N 3.2-5.2 Globulin 2.6 g/dL N 2-4 Albumin/Globulin Ratio 1.7 N 1-3 Total Bilirubin 0.80 mg/dL N 0.2-1.0 Alkaline Phosphatase 58 U/L N 34-104 Alt 31 U/L N 7-52 Ast 33 U/L N 13-39 Egfr Non- 54.1 N >60 Egfr 69.6 N >60 24 Lipid Profile 10/28/[address] [facility] Triglycerides 83 mg/dL N 25 (Trig/Chol/HDL) [address] [place] [address] [phone] Cholesterol 177 mg/dL N 26 HDL Cholesterol 48.9 mg/dL N 27 LDL Cholesterol 112 mg/dL N 28 Laboratory test 08/27/[address] [facility] Creatine 252 U/L High 10 -223 finding 101 [facility] Kinase(CK) [place] [address] [phone] Hemoglobin A1c (Glyco HGB) 5.9 % N Less than 6.0 29 Basic Metabolic Panel 08/27/[address] [facility] Sodium 138 mmol/L N 133-145 [address] [place] [address] [phone] Potassium 3.9 mmol/L N 3.5-5.0 Chloride 102 mmol/L N 101-111 Co2 Carbon Dioxide 31 mmol/L N 22-32 Anion Gap 5 mmol/L N 2-11 Glucose 94 mg/dL N 70-100 Blood Urea Nitrogen 25 mg/dL High 6-24 Creatinine 1.33 mg/dL High 0.67-1.17 BUN/Creatinine Ratio 18.8 N 8-20 Calcium 9.7 mg/dL N 8.6-10.3 Egfr Non- 54.3 N >60 Egfr 69.8 N >60 30 Lipid Profile 05/20/[address] [facility] Triglycerides 74 mg/dL N 31 (Trig/Chol/HDL) [address] [place] [address] [phone] Cholesterol 156 mg/dL N 32 HDL Cholesterol 48.2 mg/dL N 33 LDL Cholesterol 93 mg/dL N 34 Comp Metabolic Panel 05/20/[address] [facility] Sodium 139 mmol/L N 133-[address] [place] [address] [phone] Potassium 4.0 mmol/L N 3.5-5.0 Chloride 102 mmol/L N 101-111 Co2 Carbon Dioxide 31 mmol/L N 22-32 Anion Gap 6 mmol/L N 2-11 Glucose 97 mg/dL N 70-100 Blood Urea Nitrogen 23 mg/dL N 6-24 Creatinine 1.27 mg/dL High 0.67-1.17 BUN/Creatinine Ratio 18.1 N 8-20 Calcium 9.3 mg/dL N 8.6-10.3 Total Protein 6.7 g/dL N 6.4-8.9 Albumin 4.3 g/dL N 3.2-5.2 Globulin 2.4 g/dL N 2-4 Albumin/Globulin Ratio 1.8 N 1-3 Total Bilirubin 0.60 mg/dL N 0.2-1.0 Alkaline Phosphatase 56 U/L N 34-104 Alt 35 U/L N 7-52 Ast 31 U/L N 13-39 Egfr Non- 57.3 N >60 Egfr 73.7 N >60 35 Laboratory test 05/20/[address] [facility] PSA Screening 3.483 N 0- 4.000 [address] ng/[place] [address] [phone] CBC Auto Diff 05/20/[address] [facility] White Blood 6.7 N 3.5- 10.[address] Count 10^3/[place] [address] [phone] Red Blood Count 5.92 10^6/uL High 4.0-5.4 Hemoglobin 16.5 g/dL N 14.0-18.0 Hematocrit 49 % N 42-52 Mean Corpuscular Volume 82 fL N 80-94 Mean Corpuscular Hemoglobin 28 pg N 27-31 Mean Corpuscular HGB Conc 34 g/dL N 31-36 Red Cell Distribution Width 15 % N 10.5-15 Platelet Count 255 10^3/uL N 150-450 Mean Platelet Volume 8 um3 N 7.4-10.4 Abs Neutrophils 4.3 10^3/uL N 1.5-7.7 Abs Lymphocytes 1.6 10^3/uL N 1.0-4.8 Abs Monocytes 0.7 10^3/uL N 0-0.8 Abs Eosinophils 0.1 10^3/uL N 0-0.6 Abs Basophils 0.1 10^3/uL N 0-0.2 Abs Nucleated RBC 0 10^3/uL N Granulocyte % 63.3 % N 38-83 Lymphocyte % 23.6 % Low 25-47 Monocyte % 10.2 % High 1-9 Eosinophil % 1.9 % N 0-6 Basophil % 1.0 % N 0-2 Nucleated Red Blood Cells % 0 N Laboratory test 05/20/[address] [facility] Testosterone 204.80 Low 240-950 [address] Total ng/[place] [address] [phone] Testosterone 02/04/[address] [facility] Free 11.1 N 3.67-13.9 38 Free & Total [address] Testosterone ng/[place] [address] ng/dl [phone] Testosterone 442 ng/dL N 240-950 39 Comp Metabolic Panel 11/14/[address] [facility] Sodium 138 mmol/L N 133-[address] [place] [address] [phone] Potassium 3.9 mmol/L N 3.5-5.0 Chloride 104 mmol/L N 101-111 Co2 Carbon Dioxide 25 mmol/L N 22-32 Anion Gap 9 mmol/L N 2-11 Glucose 85 mg/dL N 70-100 Blood Urea Nitrogen 24 mg/dL N 6-24 Creatinine 1.25 mg/dL High 0.67-1.17 BUN/Creatinine Ratio 19.2 N 8-20 Calcium 9.2 mg/dL N 8.6-10.3 Total Protein 6.5 g/dL N 6.4-8.9 Albumin 4.2 g/dL N 3.2-5.2 Globulin 2.3 g/dL N 2-4 Albumin/Globulin Ratio 1.8 N 1-3 Total Bilirubin 0.60 mg/dL N 0.2-1.0 Alkaline Phosphatase 57 U/L N 34-104 Alt 29 U/L N 7-52 Ast 32 U/L N 13-39 Egfr Non- 58.3 N >60 Egfr 75.0 N >60 40 Laboratory test 11/14/[address] [facility] PSA Screening 2.963 ng/mL N 0-4.000 [address] [place], [place] [id number] [phone] Lipid Profile 11/14/[address] [facility] Triglycerides 58 mg/dL N 42 (Trig/Chol/HDL) [address] [place] [address] [phone] Cholesterol 158 mg/dL N 43 HDL Cholesterol 46.9 mg/dL N 44 LDL Cholesterol 100 mg/dL N 45 CBC Auto Diff 11/14/[address] [facility] White Blood 5.5 10^3/uL N 3.5-10.[address] [place] [address] [phone] Red Blood Count 5.65 10^6/uL High 4.0-5.4 Hemoglobin 15.3 g/dL N 14.0-18.0 Hematocrit 46 % N 42-52 Mean Corpuscular Volume 81 fL N 80-94 Mean Corpuscular Hemoglobin 27 pg N 27-31 Mean Corpuscular HGB Conc 33 g/dL N 31-36 Red Cell Distribution Width 16 % High 10.5-15 Platelet Count 261 10^3/uL N 150-450 Mean Platelet Volume 8 um3 N 7.4-10.4 Abs Neutrophils 3.3 10^3/uL N 1.5-7.7 Abs Lymphocytes 1.4 10^3/uL N 1.0-4.8 Abs Monocytes 0.5 10^3/uL N 0-0.8 Abs Eosinophils 0.2 10^3/uL N 0-0.6 Abs Basophils 0.1 10^3/uL N 0-0.2 Abs Nucleated RBC 0.02 10^3/uL N Granulocyte % 59.9 % N 38-83 Lymphocyte % 25.9 % N 25-47 Monocyte % 9.3 % High 1-9 Eosinophil % 3.0 % N 0-6 Basophil % 1.9 % N 0-2 Nucleated Red Blood Cells % 0.3 N Testosterone 11/14/[address] [facility] Free 3.58 Abnormal 3.67- 13.9 46 Free & Total [address] Testosterone ng/[place] [address] ng/dl [phone] Testosterone 128 ng/dL Abnormal 240-348 47 Testosterone 08/30/[address] [facility] Free 6.28 N 3.67-13.9 48 Free & Total 101 Testosterone ng/[place] [address] ng/dl [phone] Testosterone 251 ng/dL N 240-950 49 Comp Metabolic Panel 07/29/[address] [facility] Sodium 138 mmol/L N 133-145 [address] [place] [address] [phone] Potassium 3.9 mmol/L N 3.5-5.0 Chloride 103 mmol/L N 101-111 Co2 Carbon Dioxide 30 mmol/L N 22-32 Anion Gap 5 mmol/L N 2-11 Glucose 103 mg/dL High 70-100 Blood Urea Nitrogen 24 mg/dL N 6-24 Creatinine 1.17 mg/dL N 0.67-1.17 BUN/Creatinine Ratio 20.5 High 8-20 Calcium 9.2 mg/dL N 8.6-10.3 Total Protein 6.6 g/dL N 6.4-8.9 Albumin 4.4 g/dL N 3.2-5.2 Globulin 2.2 g/dL N 2-4 Albumin/Globulin Ratio 2.0 N 1-3 Total Bilirubin 0.50 mg/dL N 0.2-1.0 Alkaline Phosphatase 63 U/L N 34-104 Alt 33 U/L N 7-52 Ast 27 U/L N 13-39 Egfr Non- 63.2 N >60 Egfr 81.2 N >60 50 Laboratory test 07/29/[address] [facility] PSA Screening 3.058 ng/mL N 0-4.[address] [place] [address] [phone] Lipid Profile 07/29/[address] [facility] Triglycerides 74 mg/dL N 52 (Trig/Chol/HDL) [address] [place] [address] [phone] Cholesterol 162 mg/dL N 53 HDL Cholesterol 46.6 mg/dL N 54 LDL Cholesterol 101 mg/dL N 55 CBC Auto Diff 07/29/[address] [facility] White Blood 5.7 10^3/uL N 3.5-10.8 [address] [place] [address] [phone] Red Blood Count 5.55 10^6/uL High 4.0-5.4 Hemoglobin 15.6 g/dL N 14.0-18.0 Hematocrit 46 % N 42-52 Mean Corpuscular Volume 82 fL N 80-94 Mean Corpuscular Hemoglobin 28 pg N 27-31 Mean Corpuscular HGB Conc 34 g/dL N 31-36 Red Cell Distribution Width 15 % N 10.5-15 Platelet Count 311 10^3/uL N 150-450 Mean Platelet Volume 8 um3 N 7.4-10.4 Abs Neutrophils 3.3 10^3/uL N 1.5-7.7 Abs Lymphocytes 1.6 10^3/uL N 1.0-4.8 Abs Monocytes 0.5 10^3/uL N 0-0.8 Abs Eosinophils 0.2 10^3/uL N 0-0.6 Abs Basophils 0.1 10^3/uL N 0-0.2 Abs Nucleated RBC 0.01 10^3/uL N Granulocyte % 58.1 % N 38-83 Lymphocyte % 28.6 % N 25-47 Monocyte % 9.2 % High 1-9 Eosinophil % 3.2 % N 0-6 Basophil % 0.9 % N 0-2 Nucleated Red Blood Cells % 0.2 N Laboratory test 05/10/[address] [facility] PSA Screening 2.890 N 0- 4.000 [address] ng/[place] [address] [phone] CBC Auto Diff 05/10/[address] [facility] White Blood 6.1 N 3.5- 10.[address] Count 10^3/[place] [address] [phone] Red Blood Count 5.52 10^6/uL High 4.0-5.4 Hemoglobin 15.3 g/dL N 14.0-18.0 Hematocrit 46 % N 42-52 Mean Corpuscular Volume 84 fL N 80-94 Mean Corpuscular Hemoglobin 28 pg N 27-31 Mean Corpuscular HGB Conc 33 g/dL N 31-36 Red Cell Distribution Width 15 % N 10.5-15 Platelet Count 269 10^3/uL N 150-450 Mean Platelet Volume 8 um3 N 7.4-10.4 Abs Neutrophils 4.0 10^3/uL N 1.5-7.7 Abs Lymphocytes 1.5 10^3/uL N 1.0-4.8 Abs Monocytes 0.5 10^3/uL N 0-0.8 Abs Eosinophils 0.1 10^3/uL N 0-0.6 Abs Basophils 0.1 10^3/uL N 0-0.2 Abs Nucleated RBC 0 10^3/uL N Granulocyte % 64.4 % N 38-83 Lymphocyte % 24.0 % Low 25-47 Monocyte % 8.9 % N 1-9 Eosinophil % 1.7 % N 0-6 Basophil % 1.0 % N 0-2 Nucleated Red Blood Cells % 0 N Laboratory 05/10/[address] [facility] Testosterone 158.13 Low 240- 950 test finding [address] Total ng/dL [place], [place] [phone] Laboratory 04/29/[address] [facility] TSH (Thyroid 3.78 N 0.34- 5.60 test finding [address] Stim Horm) ?IU/[place] [address] [phone] Free T4 (Free Thyroxine) 0.86 ng/mL N 0.61-1.12 Testosterone 04/29/[address] [facility] Free 5.87 N 0.77-13.30 57 Free & Total [address] Testosterone ng/[place] [address] ng/dl [phone] Testosterone 267 ng/dL N 240-950 58 FSH And LH 04/29/[address] [facility] FSH (Follicle Stim 4.3 mIU/mL N 1-[address] Hormone) [place] [address] [phone] LH (Lutenizing Hormone) 3.7 ?IU/mL N 2-12 Lipid Profile 11/22/[address] [facility] Triglycerides 104 mg/dL N 59 (Trig/Chol/HDL) [address] [place] [address] [phone] Cholesterol 154 mg/dL N 60 HDL Cholesterol 40.5 mg/dL N 61 LDL Cholesterol 93 mg/dL N 62 Comp Metabolic Panel 11/22/[address] [facility] Sodium 138 mmol/L N 133-[address] [place] [address] [phone] Potassium 3.7 mmol/L N 3.5-5.0 Chloride 107 mmol/L N 101-111 Co2 Carbon Dioxide 26 mmol/L N 22-32 Anion Gap 5 mmol/L N 2-11 Glucose 108 mg/dL High 70-100 Blood Urea Nitrogen 18 mg/dL N 6-24 Creatinine 1.02 mg/dL N 0.67-1.17 BUN/Creatinine Ratio 17.6 N 8-20 Calcium 8.7 mg/dL N 8.6-10.3 Total Protein 6.6 g/dL N 6.4-8.9 Albumin 4.3 g/dL N 3.2-5.2 Globulin 2.3 g/dL N 2-4 Albumin/Globulin Ratio 1.9 N 1-3 Total Bilirubin 0.50 mg/dL N 0.2-1.0 Alkaline Phosphatase 66 U/L N 34-104 Alt 31 U/L N 7-52 Ast 28 U/L N 13-39 Egfr Non- 74.0 N >60 Egfr 95.2 N >60 63 Laboratory test 09/29/[address] [facility] Creatine Kinase 207 U/L N 10-223 finding [address] [place] [address] [phone] Laboratory test 05/16/[address] [facility] Creatine Kinase 261 U/L High 0-200 64 finding [address] [place] [address] [phone] Lipid Profile 05/16/[address] [facility] Triglycerides 56 mg/dL 40 -200 (Trig/Chol/HDL) [address] [place] [address] [phone] Cholesterol 172 mg/dL Less than 200 HDL Cholesterol 64 mg/dL High 40-60 65 Cholesterol/HDL Ratio 2.7 Average 1-4.44 LDL Cholesterol 96.8 Less Than 100 66 Basic Metabolic Panel 02/02/[address] [facility] Sodium 137 mmol/L 133-145 [address] [place] [address] [phone] Potassium 4.1 mmol/L 3.5-5.0 Chloride 102 mmol/L 101-111 Co2 Carbon Dioxide 30.0 mmol/L 22-32 Anion Gap 5.0 mmol/L 2-11 Glucose 100 mg/dL 70-100 Blood Urea Nitrogen 22 mg/dL 6-24 Creatinine 1.10 mg/dL 0.50-1.40 BUN/Creatinine Ratio 20.0 8-20 Calcium 9.1 mg/dL 8.1-9.9 Egfr Non- 68.3 >60 Egfr 87.8 >60 67 Lipid Profile 02/02/[address] [facility] Triglycerides 68 mg/dL 40 -200 (Trig/Chol/HDL) [address] [place], [place] [address] [phone] Cholesterol 209 mg/dL High Less than 200 HDL Cholesterol 56 mg/dL 40-60 68 Cholesterol/HDL Ratio 3.7 Average 1-4.44 LDL Cholesterol 139.4 High Less Than 100 69 Laboratory test finding 02/02/[address] [facility] Alt 28 U/L 14- [address] [place] [address] [phone] Ast 27 U/L 12-42 71 Lipid Panel - 07/29/[address] [facility] Creatine 262 U/L High 0- 200 [address] [place] [address] [phone] Comp Metabolic 07/29/[address] [facility] Sodium 138 133-[address] mmol/[place] [address] [phone] Potassium 4.0 mmol/L 3.5-5.0 Chloride 104 mmol/L 101-111 Co2 Carbon Dioxide 26.0 mmol/L 22-32 Anion Gap 8.0 mmol/L 2-11 Glucose 107 mg/dL High 70-100 Blood Urea Nitrogen 22 mg/dL 6-24 Creatinine 1.20 mg/dL 0.50-1.40 BUN/Creatinine Ratio 18.3 8-20 Calcium 9.4 mg/dL 8.1-9.9 Total Protein 6.1 g/dL Low 6.2-8.1 Albumin 3.6 g/dL 3.6-5.4 Globulin 2.5 g/dL 2-4 Albumin/Globulin Ratio 1.4 1-3 Total Bilirubin 0.7 mg/dL 0.4-1.5 Alkaline Phosphatase 85 U/L 30-110 Alt 34 U/L 14-54 Ast 31 U/L 12-42 Egfr Non- 62.0 >60 Egfr 79.7 >60 73 Lipid Profile 07/29/[address] [facility] Triglycerides 45 mg/dL 40 -200 (Trig/Chol/HDL) [address] [place] [address] [phone] Cholesterol 186 mg/dL Less than 200 HDL Cholesterol 57 mg/dL 40-60 74 Cholesterol/HDL Ratio 3.3 Average 1-4.44 LDL Cholesterol 120.0 mg/dL High Less Than 100 75 Basic Metabolic Panel 11/11/[address] [facility] Sodium 137 mmol/L 135-[address] [place] [address] [phone] Potassium 3.9 mmol/L 3.5-5.0 Chloride 99 mmol/L Low 101-111 Co2 (Carbon Dioxide) 29.0 mmol/L 22-32 Anion Gap 9.0 mmol/L 2-11 76 Glucose 86 mg/dL 70-100 BUN 22 mg/dL 6-24 Creatinine 1.4 mg/dL 0.50-1.40 One Over Creatinine 0.71 BUN/Creatinine Ratio 15.7 8-20 Calcium 9.6 mg/dL 8.1-9.9 eGFR Non- 51.9 > 60 eGFR 66.7 > 60 77 Testosterone 11/11/[address] [facility] Free 8.4 Abnormal 9-30 78 Free & Total Testosterone ng/[place] [address] [phone] Total Testosterone 312 ng/dL 240-950 79 FSH And LH 11/11/[address] [facility] FSH 4.03 MIU/ML [address] [place] [address] [phone] Lutenizing Hormone 5.13 MIU/ML 81 Laboratory test 11/11/[address] [facility] TSH 1.70 MIU/ML 0.34- 5.[address] [place] [address] [phone] [place] 10/07/[address] [facility] Antinuclear AB NEGATIVE Negative (Antinuclear [facility] Antibodies) [place] [address] [phone] CBC With Manual 10/07/[address] [facility] White Blood 6.3 CUMM 4.8-10.[address] [place] [address] [phone] Red Cell Count 5.49 CUMM 4.6-6.2 Hemoglobin 16.0 g/dL 14.0-18.0 Hematocrit 46 % 42-52 Mean Corpuscular Volume 84 um3 80-94 Mean Corpuscular Hemoglob 29 pg 27-31 Mean Corpuscular HGB Cone 35 g/dL 32-36 Redcell Distribution WDTH 14 % 10.5-15 Platelet Count 263 CUMM 150-450 Mean Platelet Volume 8.9 um3 7.4-10.4 Absolute Neutrophil Count 4.3 1.5-7.7 Polysegmented Neutrophil 68 % 38-83 Lymphocyte 23 % Low 25-47 Monocyte 6 % 0-13 Eosinophil 3 % 0-6 RBC Morphology NORMAL Lipid Profile 07/11/[address] [facility] Triglyceride 59 mg/dL 40- 200 82 (Trig/Chol/HDL) [address] [place] [address] [phone] Cholesterol 156 mg/dL Less Than 200 83 High Density Lipoprotein 45 mg/dL 40-60 84 Cholesterol/HDL Ratio 3.47 AVERAGE 1-4.97 Low Density Lipoprotein 99 mg/dL Less Than 100 85 Comp Metabolic Panel 07/11/[address] [facility] Sodium 138 mmol/L 135-[address] [place] [address] [phone] Potassium 4.7 mmol/L 3.5-5.0 Chloride 101 mmol/L 101-111 Co2 (Carbon Dioxide) 29.0 mmol/L 22-32 Anion Gap 8.0 mmol/L 2-11 86 Glucose 105 mg/dL High 70-100 BUN 17 mg/dL 6-24 Creatinine 1.3 mg/dL 0.50-1.40 One Over Creatinine 0.76 BUN/Creatinine Ratio 13.1 8-20 Calcium 8.8 mg/dL 8.1-9.9 Total Protein 6.5 GM/DL 6.2-8.1 Albumin 3.7 GM/DL 3.6-5.4 Globulin 2.8 GM/DL 2-4 Albumin/Globulin Ratio 1.3 1-3 Bilirubin Total 0.8 mg/dL 0.4-1.5 87 Alkaline Phosphatase 88 U/L 39-117 Alt (SGPT) 74 U/L High 17-63 Ast (Sgot) 39 U/L 12-42 eGFR Non- 56.7 > 60 eGFR 72.9 > 60 88 Lipid Panel - 07/11/[address] [facility] CPK (Creatine 292 U/L High 0-[address] Kin[place]) [place] [address] [phone] Lipid Panel - 06/06/[address] [facility] CPK (Creatine 246 U/L High 0-[address] [place]) [place] [address] [phone] Comp Metabolic 06/06/[address] [facility] Sodium 140 135-[address] mmol/[place] [address] [phone] Potassium 4.1 mmol/L 3.5-5.0 Chloride 102 mmol/L 101-111 Co2 (Carbon Dioxide) 31.0 mmol/L 22-32 Anion Gap 7.0 mmol/L 2-11 89 Glucose 95 mg/dL 70-100 BUN 21 mg/dL 6-24 Creatinine 1.10 mg/dL 0.50-1.40 One Over Creatinine 0.90 BUN/Creatinine Ratio 19.1 8-20 Calcium 9.5 mg/dL 8.1-9.9 Total Protein 7.1 GM/DL 6.2-8.1 Albumin 4.1 GM/DL 3.6-5.4 Globulin 3.0 GM/DL 2-4 Albumin/Globulin Ratio 1.4 1-3 Bilirubin Total 0.7 mg/dL 0.4-1.5 90 Alkaline Phosphatase 82 U/L 39-117 Alt (SGPT) 34 U/L 17-63 Ast (Sgot) 31 U/L 12-42 eGFR Non- 69.0 > 60 eGFR 88.7 > 60 91 Lipid Profile 06/06/[address] [facility] Triglyceride 65 mg/dL 40- 200 (Trig/Chol/HDL) [address] [place] [address] [phone] Cholesterol 183 mg/dL Less Than 200 92 High Density Lipoprotein 56 mg/dL 40-60 93 Cholesterol/HDL Ratio 3.27 AVERAGE 1-4.97 Low Density Lipoprotein 114 mg/dL High Less Than 100 94 Lipid Profile 04/07/[address] [facility] Triglyceride 65 mg/dL 40- 200 (Trig/Chol/HDL) [address] [place] [address] [phone] Cholesterol 192 mg/dL Less Than 200 95 High Density Lipoprotein 58 mg/dL 40-60 96 Cholesterol/HDL Ratio 3.31 AVERAGE 1-4.97 Low Density Lipoprotein 121 mg/dL High Less Than 100 97 Laboratory test 04/07/[address] [facility] CPK (Creatine 403 U/L High 0-[address] [facility]) [place] [address] [phone] PSA Screening 2.51 NG/ML 0-4 98 Lipid Profile 05/28/[address] [facility] Triglyceride 63 mg/dL 40- 200 (Trig/Chol/HDL) [address] [place], [place] [id number] [phone] Cholesterol 168 mg/dL Less Than 200 99 High Density Lipoprotein 53 mg/dL 40-60 100 Cholesterol/HDL Ratio 3.17 AVERAGE 1-4.97 Low Density Lipoprotein 102 mg/dL High Less Than 100 101 Comp Metabolic Panel 05/28/[address] [facility] Sodium 136 mmol/L 135-[address] [place] [address] [phone] Potassium 3.9 mmol/L 3.5-5.0 Chloride 101 mmol/L 101-111 Co2 (Carbon Dioxide) 32.0 mmol/L 22-32 Anion Gap 3.0 mmol/L 2-11 102 Glucose 99 mg/dL 70-100 103 BUN 18 mg/dL 6-24 Creatinine 1.20 mg/dL 0.50-1.40 One Over Creatinine 0.80 BUN/Creatinine Ratio 15.0 8-20 Calcium 9.2 mg/dL 8.1-9.9 104 Total Protein 6.3 GM/DL 6.2-8.1 Albumin 3.8 GM/DL 3.6-5.4 Globulin 2.5 GM/DL 2-4 Albumin/Globulin Ratio 1.5 1-3 Bilirubin Total 0.6 mg/dL 0.4-1.5 105 Alkaline Phosphatase 62 U/L 39-117 Alt (SGPT) 28 U/L 17-63 Ast (Sgot) 33 U/L 12-42 eGFR Non- 66.6 > 60 eGFR 80.5 > 60 106 Lipid Panel - 05/28/[address] [facility] CPK (Creatine 278 U/L High 0-[address] [facility]) [place] [address] [phone] Lipid Profile 12/26/[address] [facility] Triglyceride 63 mg/dL 40- 200 (Trig/Chol/HD [address] L) [place] [address] [phone] Cholesterol 150 mg/dL Less Than 200 107 High Density Lipoprotein 49 mg/dL 40-60 108 Cholesterol/HDL Ratio 3.06 AVERAGE 1-4.97 Low Density Lipoprotein 88 mg/dL Less Than 100 109 Liver Function 12/26/[address] [facility] Total Protein 6.4 GM/DL 6.2-8.1 Panel [address] [place] [address] [phone] Albumin 3.8 GM/DL 3.6-5.4 Globulin 2.6 GM/DL 2-4 Albumin/Globulin Ratio 1.5 1-3 Bilirubin Total 0.7 mg/dL 0.4-1.5 110 Bilirubin Direct 0.1 mg/dL 0.1-0.5 Indirect Bilirubin 0.6 mg/dL 0.1-0.75 Alkaline Phosphatase 75 U/L 39-117 Alt (SGPT) 35 U/L 17-63 Ast (Sgot) 33 U/L 12-42 Laboratory test 12/26/[address] [facility] CPK (Creatine 284 U/L High 0-200 finding [address] [facility]) [place] [address] [phone] C Reactive Protein High Sensit 1.7 mg/L < 7.48 111 Vitamin B12 And 11/07/[address] [facility] Vitamin B12 315 pg/mL 180-914 Folate Serum [address] [place] [address] [phone] Folic Acid 9.9 NG/ML 2-16 Laboratory test 11/07/[address] [facility] TSH 3.71 MIU/ML 0.34- 5.60 finding [address] [place] [address] [phone] Lipid Profile 11/07/[address] [facility] Triglyceride 95 mg/dL 40- 200 (Trig/Chol/HDL) [address] [place] [address] [phone] Cholesterol 157 mg/dL Less Than 200 112 High Density Lipoprotein 51 mg/dL 40-60 113 Cholesterol/HDL Ratio 3.08 AVERAGE 1-4.97 Low Density Lipoprotein 87 mg/dL Less Than 100 114 Comp Metabolic Panel 11/07/[address] [facility] Sodium 140 mmol/L 135-145 [address] [place] [address] [phone] Potassium 3.9 mmol/L 3.5-5.0 Chloride 101 mmol/L 101-111 Co2 (Carbon Dioxide) 32.0 mmol/L 22-32 Anion Gap 7.0 mmol/L 2-11 115 Glucose 100 mg/dL 70-100 116 BUN 17 mg/dL 6-24 Creatinine 1.10 mg/dL 0.50-1.40 One Over Creatinine 0.90 BUN/Creatinine Ratio 15.5 8-20 Calcium 9.3 mg/dL 8.1-9.9 117 Total Protein 6.1 GM/DL Low 6.2-8.1 Albumin 3.8 GM/DL 3.6-5.4 Globulin 2.3 GM/DL 2-4 Albumin/Globulin Ratio 1.7 1-3 Bilirubin Total 0.8 mg/dL 0.4-1.5 118 Alkaline Phosphatase 76 U/L 39-117 Alt (SGPT) 31 U/L 17-63 Ast (Sgot) 35 U/L 12-42 eGFR Non- 73.6 > 60 eGFR 89.1 > 60 119 Lipid Panel - 11/07/[address] [facility] CPK (Creatine 384 U/L High 0-[address] [facility]) [place] [address] [phone] Laboratory test 08/07/[address] [facility] CPK (Creatine 258 U/L High 0-[address] [facility]) [place] [address] [phone] Liver Function 08/07/[address] [facility] Total Protein 6.6 6.2- 8.[address] GM/[place] [address] [phone] Albumin 3.8 GM/DL 3.6-5.4 Globulin 2.8 GM/DL 2-4 Albumin/Globulin Ratio 1.4 1-3 Bilirubin Total 0.8 mg/dL 0.4-1.5 Bilirubin Direct < 0.1 mg/dL Low 0.1-0.5 Indirect Bilirubin (SEE NOTE) mg/dL 0.1-0.75 120 Alkaline Phosphatase 69 U/L 39-117 Alt (SGPT) 26 U/L 17-63 Ast (Sgot) 30 U/L 12- Lipid Panel - 05/23/[address] [facility] CPK (Creatine 332 U/L High 0-[address] [facility]) [place] [address] [phone] Comp Metabolic 05/23/[address] [facility] Sodium 138 135-[address] mmol/[place] [address] [phone] Potassium 3.7 mmol/L 3.5-5.0 Chloride 99 mmol/L Low 101-111 Co2 (Carbon Dioxide) 31.0 mmol/L 22-32 Anion Gap 8.0 mmol/L 2-11 121 Glucose 94 mg/dL 70-100 122 BUN 18 mg/dL 6-24 Creatinine 1.30 mg/dL 0.50-1.40 One Over Creatinine 0.70 BUN/Creatinine Ratio 13.8 8-20 Calcium 9.4 mg/dL 8.1-9.9 123 Total Protein 6.7 GM/DL 6.2-8.1 Albumin 4.0 GM/DL 3.6-5.4 Globulin 2.7 GM/DL 2-4 Albumin/Globulin Ratio 1.5 1-3 Bilirubin Total 0.9 mg/dL 0.4-1.5 Alkaline Phosphatase 79 U/L 39-117 Alt (SGPT) 28 U/L 17-63 Ast (Sgot) 34 U/L 12-42 Lipid Profile 05/23/[address] [facility] Triglyceride 61 mg/dL 40- 200 (Trig/Chol/HDL) [address] [place] [address] [phone] Cholesterol 142 mg/dL Less Than 200 124 High Density Lipoprotein 53 mg/dL 40-60 125 Cholesterol/HDL Ratio 2.68 AVERAGE 1-4.97 Low Density Lipoprotein 77 mg/dL Less Than 100 126 Lipid Profile 02/07/[address] [facility] Triglyceride 78 mg/dL 40- 200 (Trig/Chol/HDL) [address] [place] [address] [phone] Cholesterol 152 mg/dL Less Than 200 127 High Density Lipoprotein 44 mg/dL 40-60 128 Cholesterol/HDL Ratio 3.45 AVERAGE 1-4.97 Low Density Lipoprotein 92 mg/dL Less Than 100 129 Comp Metabolic Panel 02/07/[address] [facility] Sodium 137 mmol/L 135-[address] [place] [address] [phone] Potassium 3.8 mmol/L 3.5-5.0 Chloride 101 mmol/L 101-111 Co2 (Carbon Dioxide) 32.0 mmol/L 22-32 Anion Gap 4.0 mmol/L 2-11 130 Glucose 97 mg/dL 70-100 131 BUN 13 mg/dL 6-24 Creatinine 1.1 mg/dL 0.5-1.4 One Over Creatinine 0.90 BUN/Creatinine Ratio 11.8 8-20 Calcium 9.1 mg/dL 8.1-9.9 132 Total Protein 6.6 GM/DL 6.2-8.1 Albumin 4.4 GM/DL 3.6-5.4 Globulin 2.2 GM/DL 2-4 Albumin/Globulin Ratio 2.0 1-3 Bilirubin Total 1.0 mg/dL 0.4-1.5 Alkaline Phosphatase 80 U/L 39-117 Alt (SGPT) 28 U/L 17-63 Ast (Sgot) 31 U/L 12-42 Lipid Panel - 02/07/[address] [facility] CPK (Creatine 268 U/L High 0-[address] [facility]) [place] [address] [phone] Lipid Panel - 11/23/[address] [facility] CPK (Creatine 264 U/L High 0-[address] [facility]) [place] [address] [phone] Comp Metabolic 11/23/[address] [facility] Sodium 138 135-[address] mmol/[place] [address] [phone] Potassium 4.1 mmol/L 3.5-5.0 Chloride 103 mmol/L 101-111 Co2 (Carbon Dioxide) 30.0 mmol/L 22-32 Anion Gap 5.0 mmol/L 2-11 133 Glucose 96 mg/dL 70-105 BUN 21 mg/dL 6-24 Creatinine 1.3 mg/dL 0.5-1.4 One Over Creatinine 0.76 BUN/Creatinine Ratio 16.2 8-20 Calcium 8.9 mg/dL 8.1-9.9 134 Total Protein 6.6 GM/DL 6.2-8.1 Albumin 4.0 GM/DL 3.6-5.4 Globulin 2.6 GM/DL 2-4 Albumin/Globulin Ratio 1.5 1-3 Bilirubin Total 0.6 mg/dL 0.4-1.5 Alkaline Phosphatase 79 U/L 39-117 Alt (SGPT) 27 U/L 17-63 Ast (Sgot) 27 U/L 12-42 Lipid Profile 11/23/[address] [facility] Triglyceride 77 mg/dL 40- 200 (Trig/Chol/HDL) [address] [place] [address] [phone] Cholesterol 180 mg/dL Less Than 200 135 High Density Lipoprotein 46 mg/dL 40-60 136 Cholesterol/HDL Ratio 3.91 AVERAGE 1-4.97 Low Density Lipoprotein 119 mg/dL High Less Than 100 137 Lipid Panel - 07/11/[address] [facility] CPK (Creatine 247 U/L High 0-200 [address] [facility]) [place], [place] [id number] [phone] Comp Metabolic 07/11/[address] [facility] One Over 0.[address] [place] [address] [phone] Anion Gap 3.0 mmol/L 2-11 139 Albumin/Globulin Ratio 1.3 1-3 Albumin 3.9 GM/DL 3.6-5.4 Alkaline Phosphatase 81 U/L 39-117 Alt (SGPT) 29 U/L 17-63 Ast (Sgot) 30 U/L 12-42 BUN 22 mg/dL 6-24 Calcium 8.9 mg/dL 8.7-10.2 Chloride 102 mmol/L 101-111 Co2 (Carbon Dioxide) 29.0 mmol/L 22-32 Globulin 3.1 GM/DL 2-4 Glucose 102 mg/dL 70-105 Potassium 4.2 mmol/L 3.5-5.0 Sodium 134 mmol/L Low 135-145 Bilirubin Total 0.7 mg/dL 0.4-1.5 Total Protein 7.0 GM/DL 6.2-8.1 BUN/Creatinine Ratio 16.9 8-20 Creatinine 1.3 mg/dL 0.5-1.4 Lipid Profile 07/11/[address] [facility] Cholesterol/HDL 4.11 1- 4.97 (Trig/Chol/HDL) [address] [place] [address] [phone] Cholesterol 185 mg/dL Less Than 200 140 Triglyceride 76 mg/dL 40-200 High Density Lipoprotein 45 mg/dL 40-60 Low Density Lipoprotein 125 mg/dL High Less Than 100 141 Laboratory test 04/13/[address] [facility] CPK (Creatine 327 U/L High 0-200 [address] [facility]) [place] [address] [phone] Lipid Profile 04/13/[address] [facility] Cholesterol/H 5.49 High 1- 4.97 (Trig/Chol/HDL) [address] [place] [address] [phone] Cholesterol 269 mg/dL High Less Than 200 143 Triglyceride 83 mg/dL 40-200 High Density Lipoprotein 49 mg/dL 40-60 Low Density Lipoprotein 203 mg/dL High Less Than 100 144 Laboratory test 04/13/[address] [facility] PSA Screening 1.49 NG/ML 0-4 [address] [place] [address] [phone] Liver Function 04/13/[address] [facility] Albumin/Globuli 1.5 1-[address] [place] [address] [phone] Albumin 4.2 GM/DL 3.6-5.4 Alkaline Phosphatase 76 U/L 39-117 Alt (SGPT) 26 U/L 17-63 Ast (Sgot) 27 U/L 12-42 Bilirubin Direct < 0.1 mg/dL Low 0.1-0.5 Globulin 2.8 GM/DL 2-4 Bilirubin Total 0.8 mg/dL 0.4-1.5 Total Protein 7.0 GM/DL 6.2-8.1 1 Desirable: <150 Borderline High: 150-199 High: 200-499 Very High: >500 2 Desirable: <200 Borderline High: 200-239 High: >239 3 Low: <40 Desirable: 40-60 High: >60 4 Desirable: <100 Near Optimal: 100-129 Borderline High: 130-159 High: 160-189 Very High: >189 5 Desirable: <150 Borderline High: 150-199 High: 200-499 Very High: >500 6 Desirable: <200 Borderline High: 200-239 High: >239 7 Low: <40 Desirable: 40-60 High: >60 8 Desirable: <100 Near Optimal: 100-129 Borderline High: 130-159 High: 160-189 Very High: >189 9 ADDITIONAL INFORMATION Testing performed by [facility]. This test was developed and its performance characteristics determined by [facility] in a manner consistent with CLIA requirements. This test has not been cleared or approved by the U.S. Food and Drug Administration. 10 ADDITIONAL INFORMATION Testing performed by Liquid Chromatography-Tandem Mass Spectrometry (LC-MS/MS). This test was developed and its performance characteristics determined by [facility] in a manner consistent with CLIA requirements. This test has not been cleared or approved by the U.S. Food and Drug Administration. Test Performed by: [facility] [address] [place] [address] 11 Because ethnic data is not always readily available, this report includes an eGFR for both -Americans and non- Americans. The National Kidney Disease Education Program (NKDEP) does not endorse the use of the MDRD equation for patients that are not between the ages of 18 and 70, are , have extremes of body size, muscle mass, or nutritional status, or are non- or non-. According to the National Kidney Foundation, irrespective of diagnosis, the stage of the disease is based on the level of kidney function: Stage Description GFR(mL/min/1.73 m(2)) 1 Kidney damage with normal or decreased GFR 90 2 Kidney damage with mild decrease in GFR 60-89 3 Moderate decrease in GFR 30-59 4 Severe decrease in GFR 15-29 5 Kidney failure <15 (or dialysis) 12 Serum levels of PSA measured using the [employer] DXI Hybritech immunoassay should not be interpreted as absolute evidence of the presence or absence of disease. The PSA value should be used in conjunction with other pertinent clinical diagnostic procedures. The values obtained with different assay methods or kits cannot be used interchangeably. 13 Because ethnic data is not always readily available, this report includes an eGFR for both -Americans and non- Americans. The National Kidney Disease Education Program (NKDEP) does not endorse the use of the MDRD equation for patients that are not between the ages of 18 and 70, are , have extremes of body size, muscle mass, or nutritional status, or are non- or non-. According to the National Kidney Foundation, irrespective of diagnosis, the stage of the disease is based on the level of kidney function: Stage Description GFR(mL/min/1.73 m(2)) 1 Kidney damage with normal or decreased GFR 90 2 Kidney damage with mild decrease in GFR 60-89 3 Moderate decrease in GFR 30-59 4 Severe decrease in GFR 15-29 5 Kidney failure <15 (or dialysis) 14 Therapeutic target for the treatment of diabetes mellitus patients is <7% HBA1C, and in selective patients <6.0%. Please refer to [place] [employer] diabetic care guidelines for further information. 15 ADDITIONAL INFORMATION Testing performed by [facility]. This test was developed and its performance characteristics determined by [facility] in a manner consistent with CLIA requirements. This test has not been cleared or approved by the U.S. Food and Drug Administration. 16 ADDITIONAL INFORMATION Testing performed by Liquid Chromatography-Tandem Mass Spectrometry (LC-MS/MS). This test was developed and its performance characteristics determined by [facility] in a manner consistent with CLIA requirements. This test has not been cleared or approved by the U.S. Food and Drug Administration. Test Performed by: [facility] [address] [place] [address] 17 Desirable: <150 Borderline High: 150-199 High: 200-499 Very High: >500 18 Desirable: <200 Borderline High: 200-239 High: >239 19 Low: <40 Desirable: 40-60 High: >60 20 Desirable: <100 Near Optimal: 100-129 Borderline High: 130-159 High: 160-189 Very High: >189 21 Because ethnic data is not always readily available, this report includes an eGFR for both -Americans and non- Americans. The National Kidney Disease Education Program (NKDEP) does not endorse the use of the MDRD equation for patients that are not between the ages of 18 and 70, are , have extremes of body size, muscle mass, or nutritional status, or are non- or non-. According to the National Kidney Foundation, irrespective of diagnosis, the stage of the disease is based on the level of kidney function: Stage Description GFR(mL/min/1.73 m(2)) 1 Kidney damage with normal or decreased GFR 90 2 Kidney damage with mild decrease in GFR 60-89 3 Moderate decrease in GFR 30-59 4 Severe decrease in GFR 15-29 5 Kidney failure <15 (or dialysis) 22 Serum levels of PSA measured using the [employer] DXI Hybritech immunoassay should not be interpreted as absolute evidence of the presence or absence of disease. The PSA value should be used in conjunction with other pertinent clinical diagnostic procedures. The values obtained with different assay methods or kits cannot be used interchangeably. 23 Non-fasting in 1 month 24 Because ethnic data is not always readily available, this report includes an eGFR for both -Americans and non- Americans. The National Kidney Disease Education Program (NKDEP) does not endorse the use of the MDRD equation for patients that are not between the ages of 18 and 70, are , have extremes of body size, muscle mass, or nutritional status, or are non- or non-. According to the National Kidney Foundation, irrespective of diagnosis, the stage of the disease is based on the level of kidney function: Stage Description GFR(mL/min/1.73 m(2)) 1 Kidney damage with normal or decreased GFR 90 2 Kidney damage with mild decrease in GFR 60-89 3 Moderate decrease in GFR 30-59 4 Severe decrease in GFR 15-29 5 Kidney failure <15 (or dialysis) 25 Desirable <150 Borderline high 150-199 High 200-499 Very High >500 26 Desirable <200 Borderline high 200-239 High >239 27 Low <40 Desirable: 40-60 High: >60 28 Desirable: <100 mg/dL Near Optimal: 100-129 mg/dL Borderline High: 130-159 mg/dL High: 160-189 mg/dL Very High: >189 mg/dL 29 Therapeutic target for the treatment of diabetes Mellitus patients is <7% HBA1C, and in selective patients <6.0%.Please refer to [place] [employer] Diabetic care guidelines for further information. 30 Because ethnic data is not always readily available, this report includes an eGFR for both -Americans and non- Americans. The National Kidney Disease Education Program (NKDEP) does not endorse the use of the MDRD equation for patients that are not between the ages of 18 and 70, are , have extremes of body size, muscle mass, or nutritional status, or are non- or non-. According to the National Kidney Foundation, irrespective of diagnosis, the stage of the disease is based on the level of kidney function: Stage Description GFR(mL/min/1.73 m(2)) 1 Kidney damage with normal or decreased GFR 90 2 Kidney damage with mild decrease in GFR 60-89 3 Moderate decrease in GFR 30-59 4 Severe decrease in GFR 15-29 5 Kidney failure <15 (or dialysis) 31 Desirable <150 Borderline high 150-199 High 200-499 Very High >500 32 Desirable <200 Borderline high 200-239 High >239 33 Low <40 Desirable: 40-60 High: >60 34 Desirable: <100 mg/dL Near Optimal: 100-129 mg/dL Borderline High: 130-159 mg/dL High: 160-189 mg/dL Very High: >189 mg/dL 35 Because ethnic data is not always readily available, this report includes an eGFR for both -Americans and non- Americans. The National Kidney Disease Education Program (NKDEP) does not endorse the use of the MDRD equation for patients that are not between the ages of 18 and 70, are , have extremes of body size, muscle mass, or nutritional status, or are non- or non-. According to the National Kidney Foundation, irrespective of diagnosis, the stage of the disease is based on the level of kidney function: Stage Description GFR(mL/min/1.73 m(2)) 1 Kidney damage with normal or decreased GFR 90 2 Kidney damage with mild decrease in GFR 60-89 3 Moderate decrease in GFR 30-59 4 Severe decrease in GFR 15-29 5 Kidney failure <15 (or dialysis) 36 Serum levels of PSA measured using the [employer] D[employer] immunoassay should not be interpreted as absolute evidence of the presence or absence of disease. The PSA value should be used in conjunction with other pertinent clinical diagnostic procedures. The values obtained with different assay methods or kits cannot be used interchangeably. 37 FASTING 10 HOUR 38 ADDITIONAL INFORMATION Testing performed by [facility]. This test was developed and its performance characteristics determined by [facility] in a manner consistent with CLIA requirements. This test has not been cleared or approved by the U.S. Food and Drug Administration. 39 ADDITIONAL INFORMATION Testing performed by Liquid Chromatography-Tandem Mass Spectrometry (LC-MS/MS). This test was developed and its performance characteristics determined by [facility] in a manner consistent with CLIA requirements. This test has not been cleared or approved by the U.S. Food and Drug Administration. Test Performed by: [place] [address] Title I Director: Misbah Bishop II, M.D., Ph.D. 40 Because ethnic data is not always readily available, this report includes an eGFR for both -Americans and non- Americans. The National Kidney Disease Education Program (NKDEP) does not endorse the use of the MDRD equation for patients that are not between the ages of 18 and 70, are , have extremes of body size, muscle mass, or nutritional status, or are non- or non-. According to the National Kidney Foundation, irrespective of diagnosis, the stage of the disease is based on the level of kidney function: Stage Description GFR(mL/min/1.73 m(2)) 1 Kidney damage with normal or decreased GFR 90 2 Kidney damage with mild decrease in GFR 60-89 3 Moderate decrease in GFR 30-59 4 Severe decrease in GFR 15-29 5 Kidney failure <15 (or dialysis) 41 Serum levels of PSA measured using the [employer] DXI Hybrite[employer] immunoassay should not be interpreted as absolute evidence of the presence or absence of disease. The PSA value should be used in conjunction with other pertinent clinical diagnostic procedures. The values obtained with different assay methods or kits cannot be used interchangeably. 42 Desirable <150 Borderline high 150-199 High 200-499 Very High >500 43 Desirable <200 Borderline high 200-239 High >239 44 Low <40 Desirable: 40-60 High: >60 45 Desirable: <100 mg/dL Near Optimal: 100-129 mg/dL Borderline High: 130-159 mg/dL High: 160-189 mg/dL Very High: >189 mg/dL 46 ADDITIONAL INFORMATION Testing performed by [facility]. 47 ADDITIONAL INFORMATION Testing performed by Liquid Chromatography-Tandem Mass Spectrometry (LC-MS/MS). Test Performed by: [facility] [place] [address] Title I Director: Misbah Bishop II, M.D., Ph.D. 48 ADDITIONAL INFORMATION Testing performed by [facility]. 49 ADDITIONAL INFORMATION Testing performed by Liquid Chromatography-Tandem Mass Spectrometry (LC-MS/MS). Test Performed by: [place] [address] Title I Director: Misbah Bishop II, M.D., Ph.D. 50 Because ethnic data is not always readily available, this report includes an eGFR for both -Americans and non- Americans. The National Kidney Disease Education Program (NKDEP) does not endorse the use of the MDRD equation for patients that are not between the ages of 18 and 70, are , have extremes of body size, muscle mass, or nutritional status, or are non- or non-. According to the National Kidney Foundation, irrespective of diagnosis, the stage of the disease is based on the level of kidney function: Stage Description GFR(mL/min/1.73 m(2)) 1 Kidney damage with normal or decreased GFR 90 2 Kidney damage with mild decrease in GFR 60-89 3 Moderate decrease in GFR 30-59 4 Severe decrease in GFR 15-29 5 Kidney failure <15 (or dialysis) 51 Serum levels of PSA measured using the [employer] DXI Hy[employer] immunoassay should not be interpreted as absolute evidence of the presence or absence of disease. The PSA value should be used in conjunction with other pertinent clinical diagnostic procedures. The values obtained with different assay methods or kits cannot be used interchangeably. 52 Desirable <150 Borderline high 150-199 High 200-499 Very High >500 53 Desirable <200 Borderline high 200-239 High >239 54 Low <40 Desirable: 40-60 High: >60 55 Desirable: <100 mg/dL Near Optimal: 100-129 mg/dL Borderline High: 130-159 mg/dL High: 160-189 mg/dL Very High: >189 mg/dL 56 Serum levels of PSA measured using the [employer] DXI Hybritech immunoassay should not be interpreted as absolute evidence of the presence or absence of disease. The PSA value should be used in conjunction with other pertinent clinical diagnostic procedures. The values obtained with different assay methods or kits cannot be used interchangeably. 57 ADDITIONAL INFORMATION Testing performed by [facility]. 58 ADDITIONAL INFORMATION Testing performed by Liquid Chromatography-Tandem Mass Spectrometry (LC-MS/MS). Test Performed by: [place] [id number] Title I Director: Msibah Bishop II, M.D., Ph.D. 59 Desirable <150 Borderline high 150-199 High 200-499 Very High >500 60 Desirable <200 Borderline high 200-239 High >239 61 Low <40 Desirable: 40-60 High: >60 62 Desirable: <100 mg/dL Near Optimal: 100-129 mg/dL Borderline High: 130-159 mg/dL High: 160-189 mg/dL Very High: >189 mg/dL 63 Because ethnic data is not always readily available, this report includes an eGFR for both -Americans and non- Americans. The National Kidney Disease Education Program (NKDEP) does not endorse the use of the MDRD equation for patients that are not between the ages of 18 and 70, are , have extremes of body size, muscle mass, or nutritional status, or are non- or non-. According to the National Kidney Foundation, irrespective of diagnosis, the stage of the disease is based on the level of kidney function: Stage Description GFR(mL/min/1.73 m(2)) 1 Kidney damage with normal or decreased GFR 90 2 Kidney damage with mild decrease in GFR 60-89 3 Moderate decrease in GFR 30-59 4 Severe decrease in GFR 15-29 5 Kidney failure <15 (or dialysis) 64 FASTING 10 HOUR 65 HDL Interpretation: Undesirable: High Risk: Less than 40 mg/dL Desirable: Low Risk: Greater than 60 mg/dL 66 LDL Interpretation: Low Risk Optimal Level: LDL Less than 100 mg/dL Near or Above Optimal: LDL 100-129 mg/dL Borderline High Risk: LDL 130-159 mg/dL High Risk: LDL 160-189 mg/dL Very High Risk: LDL Greater than 189 mg/dL 67 Because ethnic data is not always readily available, this report includes an eGFR for both -Americans and non- Americans. The National Kidney Disease Education Program (NKDEP) does not endorse the use of the MDRD equation for patients that are not between the ages of 18 and 70, are , have extremes of body size, muscle mass, or nutritional status, or are non- or non-. According to the National Kidney Foundation, irrespective of diagnosis, the stage of the disease is based on the level of kidney function: Stage Description GFR(mL/min/1.73 m(2)) 1 Kidney damage with normal or decreased GFR 90 2 Kidney damage with mild decrease in GFR 60-89 3 Moderate decrease in GFR 30-59 4 Severe decrease in GFR 15-29 5 Kidney failure <15 (or dialysis) 68 HDL Interpretation: Undesirable: High Risk: Less than 40 mg/dL Desirable: Low Risk: Greater than 60 mg/dL 69 LDL Interpretation: Low Risk Optimal Level: LDL Less than 100 mg/dL Near or Above Optimal: LDL 100-129 mg/dL Borderline High Risk: LDL 130-159 mg/dL High Risk: LDL 160-189 mg/dL Very High Risk: LDL Greater than 189 mg/dL 70 FASTING 71 FASTING 72 FASTING 10 HOUR 73 Because ethnic data is not always readily available, this report includes an eGFR for both -Americans and non- Americans. The National Kidney Disease Education Program (NKDEP) does not endorse the use of the MDRD equation for patients that are not between the ages of 18 and 70, are , have extremes of body size, muscle mass, or nutritional status, or are non- or non-. According to the National Kidney Foundation, irrespective of diagnosis, the stage of the disease is based on the level of kidney function: Stage Description GFR(mL/min/1.73 m(2)) 1 Kidney damage with normal or decreased GFR 90 2 Kidney damage with mild decrease in GFR 60-89 3 Moderate decrease in GFR 30-59 4 Severe decrease in GFR 15-29 5 Kidney failure <15 (or dialysis) 74 HDL Interpretation: Undesirable: High Risk: Less than 40 MG/DL Desirable: Low Risk: Greater than 60 MG/DL 75 LDL Interpretation: Low Risk Optimal Level: LDL Less than 100 MG/DL Near or Above Optimal: LDL 100-129 MG/DL Borderline High Risk: LDL 130-159 MG/DL High Risk: LDL 160-189 MG/DL Very High Risk: LDL Greater than 189 MG/DL 76 Anion gap measurement may be of limited value in the presence of any alkalosis, especially in a combined acid base disorder. . 77 Because ethnic data is not always readily available, this report includes an eGFR for both -Americans and non- Americans. The National Kidney Disease Education Program (NKDEP) does not endorse the use of the MDRD equation for patients that are not between the ages of 18 and 70, are , have extremes of body size, muscle mass, or nutritional status, or are non- or non-. According to the National Kidney Foundation, irrespective of diagnosis, the stage of the disease is based on the level of kidney function: Stage Description GFR(mL/min/1.73 m(2)) 1 Kidney damage with normal or decreased GFR 90 2 Kidney damage with mild decrease in GFR 60-89 3 Moderate decrease in GFR 30-59 4 Severe decrease in GFR 15-29 5 Kidney failure <15 (or dialysis) 78 Test Performed by: [facility] [address] [place] [address] Title I Director: Francisco Boyle III, M.D. 79 Test Performed by: [facility] [address] [place] [address] Title I Director: Francisco Boyle III, M.D. 80 NORMAL RANGE MALES 1 - 20 NORMALLY MENSTRUATING FEMALES - Follicular Phase 3 - 9 - Mid-Cycle Peak 4 - 23 - Luteal Phase 1 - 6 POSTMENOPAUSAL FEMALES 16 - 114 . 81 NORMAL RANGE MALES 2 - 12 NORMALLY MENSTRUATING FEMALES - Follicular Phase 1 - 18 - Mid-Cycle Peak 24 - 105 - Luteal Phase 0.6 - 20 POSTMENOPAUSAL FEMALES 15 - 62 . 82 FASTING 83 CHOLESTEROL INTERPRETATION: Desirable: Less than 200 MG/DL Borderline-High Risk: 200-239 MG/DL High-Risk: 240 MG/DL and over 84 HDL INTERPRETATION: Undesirable: High Risk: Less than 40 MG/DL Desirable: Low Risk: Greater than 60 MG/DL 85 LDL INTERPRETATION: Low Risk Optimal Level: LDL Less than 100 MG/DL Near or Above Optimal: LDL 100-129 MG/DL Borderline High Risk: LDL 130-159 MG/DL High Risk: LDL 160-189 MG/DL Very High Risk: LDL Greater than 189 MG/DL 86 Anion gap measurement may be of limited value in the presence of any alkalosis, especially in a combined acid base disorder. . 87 A metabolite of Naproxen, O-desmethylnaproxen, has been shown to interfere with the Jendrassik-Zenon method for measuring total bilirubin. Samples from patients who have taken Naproxen have shown spurious elevation in total bilirubin levels. 88 Because ethnic data is not always readily available, this report includes an eGFR for both -Americans and non- Americans. The National Kidney Disease Education Program (NKDEP) does not endorse the use of the MDRD equation for patients that are not between the ages of 18 and 70, are , have extremes of body size, muscle mass, or nutritional status, or are non- or non-. According to the National Kidney Foundation, irrespective of diagnosis, the stage of the disease is based on the level of kidney function: Stage Description GFR(mL/min/1.73 m(2)) 1 Kidney damage with normal or decreased GFR 90 2 Kidney damage with mild decrease in GFR 60-89 3 Moderate decrease in GFR 30-59 4 Severe decrease in GFR 15-29 5 Kidney failure <15 (or dialysis) 89 Anion gap measurement may be of limited value in the presence of any alkalosis, especially in a combined acid base disorder. . 90 A metabolite of Naproxen, O-desmethylnaproxen, has been shown to interfere with the Jendrassik-Byram method for measuring total bilirubin. Samples from patients who have taken Naproxen have shown spurious elevation in total bilirubin levels. 91 Because ethnic data is not always readily available, this report includes an eGFR for both -Americans and non- Americans. The National Kidney Disease Education Program (NKDEP) does not endorse the use of the MDRD equation for patients that are not between the ages of 18 and 70, are , have extremes of body size, muscle mass, or nutritional status, or are non- or non-. According to the National Kidney Foundation, irrespective of diagnosis, the stage of the disease is based on the level of kidney function: Stage Description GFR(mL/min/1.73 m(2)) 1 Kidney damage with normal or decreased GFR 90 2 Kidney damage with mild decrease in GFR 60-89 3 Moderate decrease in GFR 30-59 4 Severe decrease in GFR 15-29 5 Kidney failure <15 (or dialysis) 92 CHOLESTEROL INTERPRETATION: Desirable: Less than 200 MG/DL Borderline-High Risk: 200-239 MG/DL High-Risk: 240 MG/DL and over 93 HDL INTERPRETATION: Undesirable: High Risk: Less than 40 MG/DL Desirable: Low Risk: Greater than 60 MG/DL 94 LDL INTERPRETATION: Low Risk Optimal Level: LDL Less than 100 MG/DL Near or Above Optimal: LDL 100-129 MG/DL Borderline High Risk: LDL 130-159 MG/DL High Risk: LDL 160-189 MG/DL Very High Risk: LDL Greater than 189 MG/DL 95 CHOLESTEROL INTERPRETATION: Desirable: Less than 200 MG/DL Borderline-High Risk: 200-239 MG/DL High-Risk: 240 MG/DL and over 96 HDL INTERPRETATION: Undesirable: High Risk: Less than 40 MG/DL Desirable: Low Risk: Greater than 60 MG/DL 97 LDL INTERPRETATION: Low Risk Optimal Level: LDL Less than 100 MG/DL Near or Above Optimal: LDL 100-129 MG/DL Borderline High Risk: LDL 130-159 MG/DL High Risk: LDL 160-189 MG/DL Very High Risk: LDL Greater than 189 MG/DL 98 * SERUM LEVELS OF PSA MEASURED USING THE [employer] ACCESS HYBRITECH IMMUNOASSAY SHOULD NOT BE INTERPRETED ABSOLUTE EVIDENCE OF THE PRESENCE OR ABSENCE OF DISEASE. THE PSA VALUE SHOULD BE USED IN CONJUNCTION WITH OTHER PERTINENT CLINICAL DIAGNOSTIC PROCEDURES. 99 CHOLESTEROL INTERPRETATION: Desirable: Less than 200 MG/DL Borderline-High Risk: 200-239 MG/DL High-Risk: 240 MG/DL and over 100 HDL INTERPRETATION: Undesirable: High Risk: Less than 40 MG/DL Desirable: Low Risk: Greater than 60 MG/DL 101 LDL INTERPRETATION: Low Risk Optimal Level: LDL Less than 100 MG/DL Near or Above Optimal: LDL 100-129 MG/DL Borderline High Risk: LDL 130-159 MG/DL High Risk: LDL 160-189 MG/DL Very High Risk: LDL Greater than 189 MG/DL 102 Anion gap measurement may be of limited value in the presence of any alkalosis, especially in a combined acid base disorder. . 103 Note change in reference range as of 12/22/07. The change was based on recommendations from the [place] [employer]. 104 Please note change in reference range effective 07 . 105 A metabolite of Naproxen, O-desmethylnaproxen, has been shown to interfere with the Jendrassik-Zenon method for measuring total bilirubin. Samples from patients who have taken Naproxen have shown spurious elevation in total bilirubin levels. 106 Because ethnic data is not always readily available, this report includes an eGFR for both -Americans and non- Americans. The National Kidney Disease Education Program (NKDEP) does not endorse the use of the MDRD equation for patients that are not between the ages of 18 and 70, are , have extremes of body size, muscle mass, or nutritional status, or are non- or non-. According to the National Kidney Foundation, irrespective of diagnosis, the stage of the disease is based on the level of kidney function: Stage Description GFR(mL/min/1.73 m(2)) 1 Kidney damage with normal or decreased GFR 90 2 Kidney damage with mild decrease in GFR 60-89 3 Moderate decrease in GFR 30-59 4 Severe decrease in GFR 15-29 5 Kidney failure <15 (or dialysis) 107 CHOLESTEROL INTERPRETATION: Desirable: Less than 200 MG/DL Borderline-High Risk: 200-239 MG/DL High-Risk: 240 MG/DL and over 108 HDL INTERPRETATION: Undesirable: High Risk: Less than 40 MG/DL Desirable: Low Risk: Greater than 60 MG/DL 109 LDL INTERPRETATION: Low Risk Optimal Level: LDL Less than 100 MG/DL Near or Above Optimal: LDL 100-129 MG/DL Borderline High Risk: LDL 130-159 MG/DL High Risk: LDL 160-189 MG/DL Very High Risk: LDL Greater than 189 MG/DL 110 A metabolite of Naproxen, O-desmethylnaproxen, has been shown to interfere with the Jendrassik-Byram method for measuring total bilirubin. Samples from patients who have taken Naproxen have shown spurious elevation in total bilirubin levels. 111 Less Than 1.0......Low Risk of Cardiovascular Disease 1.0-3.0............Medium Risk (<2 Fold Increase) Greater Than 3.0...High Risk (Approximately 2-Fold Increase) The above guidelines are referenced in "Markers of Inflammation and Cardiovascular Disease: Application to Clinical and Public Health Practice." A Statement for Health Professionals from the Centers for Disease Control and Prevention and the [place] [employer]. (Reference: Circulation 2003 107:499-511) SERUM LEVELS OF HIGH SENSITIVITY C-REACTIVE PROTEIN MEASURED BY THE [employer] LXi 725 SYSTEM SHOULD NOT BE INTERPRETTED ABSOLUTE EVIDENCE OF THE PRESENCE OR ABSENCE OF DISEASE. A HIGH SENSITIVITY CRP VALUE SHOULD BE USED IN CONJUNCTION WITH OTHER PERTINENT CLINICAL AND DIAGNOSTIC INFORMATION. 112 CHOLESTEROL INTERPRETATION: Desirable: Less than 200 MG/DL Borderline-High Risk: 200-239 MG/DL High-Risk: 240 MG/DL and over 113 HDL INTERPRETATION: Undesirable: High Risk: Less than 40 MG/DL Desirable: Low Risk: Greater than 60 MG/DL 114 LDL INTERPRETATION: Low Risk Optimal Level: LDL Less than 100 MG/DL Near or Above Optimal: LDL 100-129 MG/DL Borderline High Risk: LDL 130-159 MG/DL High Risk: LDL 160-189 MG/DL Very High Risk: LDL Greater than 189 MG/DL 115 Anion gap measurement may be of limited value in the presence of any alkalosis, especially in a combined acid base disorder. . 116 Note change in reference range as of 12/22/07. The change was based on recommendations from the [place] [employer]. 117 Please note change in reference range effective 07 . 118 A metabolite of Naproxen, O-desmethylnaproxen, has been shown to interfere with the Jendrassik-Byram method for measuring total bilirubin. Samples from patients who have taken Naproxen have shown spurious elevation in total bilirubin levels. 119 Because ethnic data is not always readily available, this report includes an eGFR for both -Americans and non- Americans. The National Kidney Disease Education Program (NKDEP) does not endorse the use of the MDRD equation for patients that are not between the ages of 18 and 70, are , have extremes of body size, muscle mass, or nutritional status, or are non- or non-. According to the National Kidney Foundation, irrespective of diagnosis, the stage of the disease is based on the level of kidney function: Stage Description GFR(mL/min/1.73 m(2)) 1 Kidney damage with normal or decreased GFR 90 2 Kidney damage with mild decrease in GFR 60-89 3 Moderate decrease in GFR 30-59 4 Severe decrease in GFR 15-29 5 Kidney failure <15 (or dialysis) 120 UNABLE TO CALCULATE IND.BILI D.BILI IS <0.1 121 Anion gap measurement may be of limited value in the presence of any alkalosis, especially in a combined acid base disorder. . 122 Note change in reference range as of 12/22/07. The change was based on recommendations from the [place] [employer]. 123 Please note change in reference range effective 07 . 124 CHOLESTEROL INTERPRETATION: Desirable: Less than 200 MG/DL Borderline-High Risk: 200-239 MG/DL High-Risk: 240 MG/DL and over 125 HDL INTERPRETATION: Undesirable: High Risk: Less than 40 MG/DL Desirable: Low Risk: Greater than 60 MG/DL 126 LDL INTERPRETATION: Low Risk Optimal Level: LDL Less than 100 MG/DL Near or Above Optimal: LDL 100-129 MG/DL Borderline High Risk: LDL 130-159 MG/DL High Risk: LDL 160-189 MG/DL Very High Risk: LDL Greater than 189 MG/DL 127 CHOLESTEROL INTERPRETATION: Desirable: Less than 200 MG/DL Borderline-High Risk: 200-239 MG/DL High-Risk: 240 MG/DL and over 128 HDL INTERPRETATION: Undesirable: High Risk: Less than 40 MG/DL Desirable: Low Risk: Greater than 60 MG/DL 129 LDL INTERPRETATION: Low Risk Optimal Level: LDL Less than 100 MG/DL Near or Above Optimal: LDL 100-129 MG/DL Borderline High Risk: LDL 130-159 MG/DL High Risk: LDL 160-189 MG/DL Very High Risk: LDL Greater than 189 MG/DL 130 Anion gap measurement may be of limited value in the presence of any alkalosis, especially in a combined acid base disorder. . 131 Note change in reference range as of 12/22/07. The change was based on recommendations from the [place] [employer]. 132 Please note change in reference range effective 07 . 133 Anion gap measurement may be of limited value in the presence of any alkalosis, especially in a combined acid base disorder. . 134 Please note change in reference range effective 07 . 135 CHOLESTEROL INTERPRETATION: Desirable: Less than 200 MG/DL Borderline-High Risk: 200-239 MG/DL High-Risk: 240 MG/DL and over 136 HDL INTERPRETATION: Undesirable: High Risk: Less than 40 MG/DL Desirable: Low Risk: Greater than 60 MG/DL 137 LDL INTERPRETATION: Low Risk Optimal Level: LDL Less than 100 MG/DL Near or Above Optimal: LDL 100-129 MG/DL Borderline High Risk: LDL 130-159 MG/DL High Risk: LDL 160-189 MG/DL Very High Risk: LDL Greater than 189 MG/DL 138 Call results to [place] [phone] Anion gap measurement may be of limited value in the presence of any alkalosis, especially in a combined acid base disorder. . 140 Classification: Desirable . 141 CALCULATED LDL APPROXIMATES THE VALUE OF A DIRECT LDL MEASUREMENT. Classification: Near or above optimal . 142 PATIENT MAY HAVE RESULTS PER DOCTOR'S AUTHORIZATION. Questions regarding this report should be directed to your doctor. 143 Classification: High . 144 CALCULATED LDL APPROXIMATES THE VALUE OF A DIRECT LDL MEASUREMENT. Classification: Very High . 145 * SERUM LEVELS OF PSA MEASURED USING THE [employer] ACCESS HYBRITECH IMMUNOASSAY SHOULD NOT BE INTERPRETED ABSOLUTE EVIDENCE OF THE PRESENCE OR ABSENCE OF DISEASE. THE PSA VALUE SHOULD BE USED IN CONJUNCTION WITH OTHER PERTINENT CLINICAL DIAGNOSTIC PROCEDURES. Procedures Date Code Description Status 07/14/2017 60591 EKG Tracing & Interpretation Completed 09/06/2016 23293 Polysomnography Sleep Staging 4+ Parameters W/Cpap Completed 08/12/2016 [id number] EKG Tracing & Interpretation Completed 07/22/2016 33374 ECHO Transthoracic, Real-Time 2D With Doppler And Completed Color Flow 07/15/2016 76379 ECHO Stress Test Incl Perf Contiuous ekg Monitoring Completed W/Phys Superv 07/06/2016 68191 Stress Test Completed 06/25/2016 90570 EKG Tracing & Interpretation Completed 12/28/2014 [id number] Colonoscopy Completed 03/13/2014 70170 Removal Skin Tags Up To 15 Completed 02/23/2014 17068 I&D Abscess Simple Completed 02/15/2013 63924 EKG Tracing & Interpretation Completed 02/15/2013 86767 EKG Tracing & Interpretation Completed 08/10/2012 92128 ECHO Stress Test Incl Perf Contiuous ekg Monitoring Completed W/Phys Superv 02/12/2012 [id number] Diabetic Foot Exam Completed 12/03/2011 24197 Holter Monitor Review (24 hr)dr [place] & hesham only Completed 06/20/2004 [id number] Colonoscopy Completed Encounters Type Date Location Provider Dx Diagnosis Office Visit 04/13/2018 [facility], G47.33 Obstructive sleep 9:15a [facility], [facility] apnea (adult) [facility] (pediatric) Office Visit 03/30/2018 [facility] [place] M25.551 Pain in right hip 2:20p Sudha Hernandez M.D.,FACP Rd I10 Essential (primary) hypertension M62.82 Rhabdomyolysis Z23 Encounter for immunization Office Visit 12/28/2017 [facility] [place] F90.8 Attention-deficit 8:20a Sudha Hernandez, hyperactivity Avinash Soriano,FACP disorder, other type Office Visit 07/21/2017 [facility] [place] Z00.01 Encounter for general 1:00p Sudha Hernandez adult medical exam w Arianna Guajardo M.D.,FACP abnormal findings 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 I10 Essential (primary) hypertension G47.33 Obstructive sleep apnea (adult) (pediatric) F90.9 Attention-deficit hyperactivity disorder, unspecified type E29.1 Testicular hypofunction Z00.00 Encntr for general adult medical exam w/o abnormal findings Office Visit 07/14/2017 9:00a [place] Orestes Maurer I25.10 Athscl heart Christie Lopez disease of [place] coronary artery w/o ang pctrs I10 Essential (primary) hypertension E78.5 Hyperlipidemia, unspecified R73.01 Impaired fasting glucose I35.0 Nonrheumatic aortic (valve) stenosis Office Visit 05/06/2017 [facility] [place] M26.602 Left temporomandibular 10:00a Sudha Hernandez, joint disorderArianna Rd, M.D.,FACP unspecified J01.10 Acute frontal sinusitis, unspecified Office Visit 04/21/2017 [facility] Patricia G47.33 Obstructive sleep 9:15a [facility], NISREEN, apnea (adult) [facility] (pediatric) Office Visit 01/07/2017 [facility] [place] I25.10 Athscl heart 10:00a Sudha Hernandez M.D.,FACP disease of [place] [address] coronary artery w/o ang pctrs I10 Essential (primary) hypertension Z23 Encounter for immunization Office Visit 10/14/2016 [facility] Patricia G47.33 Obstructive sleep 10:45a [facility], RN, apnea (adult) [facility] [employer] [facility] (pediatric) Office Visit 09/21/2016 [place] RINA Le E78.5 Hyperlipidemia, 1:30p unspecified I35.0 Nonrheumatic aortic (valve) stenosis 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 I10 Essential (primary) hypertension Office Visit 08/12/2016 3:00p [facility] Orestes Lopez, R06.83 Snoring M.DRebecca R01.1 Cardiac murmur, unspecified R07.9 Chest pain, unspecified I10 Essential (primary) hypertension E29.1 Testicular hypofunction R73.01 Impaired fasting glucose Office Visit 08/12/2016 10:15a [facility] Fadia Khan, R06.83 Snoring [facility] R40.0 Somnolence R12 Heartburn F90.9 Attention-deficit hyperactivity disorder, unspecified type Z79.899 Other fdc (current) drug therapy Office Visit 06/25/2016 1:40p [facility] [place] Z00.01 [facility] [address] medical exam w abnormal findings I10 Essential (primary) hypertension R01.1 Cardiac murmur, unspecified R07.9 Chest pain, unspecified E29.1 Testicular hypofunction Office Visit 08/30/2015 11:40a [facility] Internal Nicola Escoto, R05 Cough Medicine Renzo Soriano [address] Office Visit 08/02/2015 9:40a [facility] [place] J06.9 Acute upper Sudha Hernandez M.D.,FACP respiratory [address] infection, unspecified E29.1 Testicular hypofunction Office Visit 07/03/2015 10:10a [facility] [place] E29.1 Testicular Sudha Hernandez M.D.,FACP hypofunction [address] Office Visit 05/08/2015 4:40p [facility] [place] E29.1 Testicular Sudha Hernandez M.D.,FACP hypofunction [address] Office Visit 04/29/2015 9:50a [facility] [place] 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 left foot M20.21 Hallux rigidus, right foot Office Visit 01/30/2015 10:30a [facility] [place] Z00.01 Encounter for Sudha Hernandez M.D.,FACNena general adult [address] medical exam w abnormal findings 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 F90.8 Attention-deficit hyperactivity disorder, other type M19.079 Primary osteoarthritis, unspecified ankle and foot R73.01 Impaired fasting glucose V04.81 Need For Prophylactic Vaccination & Inoculation/Influenza Z23 Encounter for immunization Office Visit 10/23/2014 [facility] Internal [place] 314.00 Attention Deficit 11:10a Sudha Hernandez M.D.,FACP Disorder W/O [place] Mention Of Hyperactivity 414.01 Coronary Atherosclerosis [place] V76.51 Special Screening For Malignant Neoplasms Colon Office Visit 01/18/2014 9:00a [facility] Internal José Miguel Nye, 527.8 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 [place] Office Visit 08/01/2013 12:30p [facility] Internal Nena Vergara, 465.9 URI Upper Medicine - N.P. Respiratory [place] Infections Acute Unspec Sites 462 Pharyngitis Acute Office Visit 05/23/2013 [facility] Internal [place] 414.01 Coronary 9:50a [facility] Atherosclerosis [place] 607.84 Impotence Organic Origin Office Visit 02/20/2013 [facility] Internal [place] 414.01 Coronary 9:30a Sud[facility] M.D[facility] Atherosclerosis [place] 607.84 Impotence Organic Origin 385.23 Ear [place] Discontinuity Or Dislocation v04.81 Need For Prophylactic Vaccination & Inoculation/Influenza Office Visit 08/19/2012 1:00p [facility] Internal [place] V70.0 Examination [facility] General Medical [place] Routine AT Health Care Facility 401.1 Hypertension Benign 414.01 Coronary Atherosclerosis [place] 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 Office Visit 07/11/2012 [facility] Ciara Hess 726.90 Enthesopathy Unspec 2:40p Sudha Hernandez M.D.,[facility] Site [place] Office Visit 05/13/2012 [facility] Ciara Hess 715.17 Osteoarthrosis 9:20a Sudha Hernandez M.D.,[facility] Localized Prim Ankle [place] & Foot 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 Office Visit 03/22/2012 9:30a [facility] Internal [place] 461.0 Sinusitis Acute Sudha Hernandez M.D.,[facility] Maxillary [place] Office Visit 02/09/2012 10:50a [facility] Ciara Hess 401.1 Hypertension [facility] Benign [place] 414.01 Coronary Atherosclerosis [place] 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 Due To Solar [place] Radiation Office Visit 09/01/2011 10:10a [facility] Internal [place] 729.2 Neuralgia Sudha Hernandez M.D.,[facility] Neuritis & [place] Radiculitis Unspec Office Visit 07/09/2011 1:20p Primer Assembler Internal [place] V70.0 Examination Sudha Hernandez M.D.,[facility] General [facility] Routine AT Health Care Facility 414.01 Coronary Atherosclerosis [place] 401.1 Hypertension Benign 314.00 Attention Deficit Disorder W/O Mention Of Hyperactivity V04.81 Need For Prophylactic Vaccination & Inoculation/Influenza V06.1 Lssxaoiazf-Gcrhivf-Uemueoto Combined (DTaP) Office Visit 04/10/2010 DO Not Use Primer Assembler [place] 414.0 Coronary 1:40p AT Larry Hernandez M.D.,[facility] Atherosclerosis 719.45 Pain Joint Pelvic Region & Thigh Office Visit 03/17/2010 DO Not Use Primer Assembler Nicola 466.0 Bronchitis Acute 9:00a AT Larry Escoto M.D. Office Visit 06/10/2009 Orthopedic Jesús Castellano M.D. 727.09 Synovitis & 2:00p Services Of Tenosynovitis [facility] Other 724.2 Lumbago Office Visit 05/17/2009 11:20a DO Not Use Primer Assembler [place] 726.5 Enthesopathy Of AT Larry Hernandez M.D.,[facility] Hip Region 414.01 Coronary Atherosclerosis [place] Office Visit 03/15/2009 DO Not Use Primer Assembler [place] 715.15 Osteoarthrosis 11:40a AT Larry Hernandez M.D.,[facility] Localized Prim Pelvic & Thigh 401.1 Hypertension Benign Office Visit 02/13/2009 DO Not Use Primer Assembler [place] 414.01 Coronary 1:40p AT Larry Hernandez M.D.,[facility] Atherosclerosis [place] 847.2 Sprains & Strains Lumbar 726.5 Enthesopathy Of Hip Region 719.47 Pain Joint Ankle & Foot Office Visit 11/20/2008 DO Not Use Primer Assembler Jeaneth Mcmullen PA 272.2 Hyperlipidemia Mixed 9:00a AT [facility] 401.1 Hypertension Benign 847.2 Sprains & Strains Lumbar Office Visit 11/13/2008 DO Not Use Primer Assembler [place] 414.01 Coronary 8:40a AT Larry Hernandez M.D.,[facility] Atherosclerosis [place] 272.2 Hyperlipidemia Mixed Office Visit 08/14/2008 8:40a DO Not Use Primer Assembler AT Good Hernandez, 780.93 Memory Loss [facility] Christie,FACP 272.2 Hyperlipidemia Mixed 401.1 Hypertension Benign Office Visit 03/27/2008 11:20a DO Not Use Primer Assembler Good D. 401.1 Hypertension AT [facility] Hernandez,FACP Benign 414.01 Coronary Atherosclerosis [place] Office Visit 02/14/2008 9:00a DO Not Use Primer Assembler [place] 272.2 Hyperlipidemia Mixed AT [facility] Hernandez,FACP 414.01 Coronary Atherosclerosis [place] 302.72 Psychosexual Dysfunction W/ Inhibited Sexual Excitement Office Visit 11/23/2007 8:40a DO Not Use Primer Assembler [place] 786.51 Pain Precordial AT [place] M.D.,FACP 530.81 Esophageal Reflux Office Visit 10/25/2007 DO Not Use Good D. 272.0 Hypercholesterolemia Pure 3:00p Primer Assembler AT [place] M[place]FACP 401.1 Hypertension Benign V17.3 History Family Ischemic Heart Disease V70.0 Examination General Medical Routine AT Health Care Facility Office Visit 04/04/2007 DO Not Use Good D. 272.0 Hypercholesterolemia Pure 3:20p Primer Assembler AT [place] M.D.,FACP 401.1 Hypertension Benign 314.01 Attention Deficit Disorder W/ Hyperactivity Plan of Treatment Future Appointment(s):06/17/2018 9:45 am - Patricia Huggins DNP, NISREEN, DISTRICT LOSS PREVENTION MANAGER- at [facility]05/17/2018 11:40 am - Orestes Lopez M.D. at [facility]07/25/2018 10:20 am - Good Hernandez M.D.,FACP at [facility] Internal Medicine - [address]04/13/2018 - Patricia Huggins DNP, RN, DISTRICT LOSS PREVENTION MANAGER- [facility]47.33 Obstructive sleep apnea (adult) (pediatric)New Orders:Sleep Study, Ordered: 04/13/18Comments:Sleep Apnea - 09/06/16 NPSG AHI 73.9/hour, suhas oxygen 77% On CPAP AHI 0.5/hour normalFollow up:2 monthsRecommendations: Continue PAP device, Benefitting and poor compliance with treatment. Increase use of CPAP to nightly. Auto setting 10-14 cm In-lab study due to 20# weight loss, if you have apnea of severity, they will retitrte the CPAP after 2-4 hours of baseline. Call for results 1 week after the study. You will not wear the mask when the study starts. Bring the mask in-case they need to retitrate due to apnea. Cleaning Wipe off mask daily (baby wipe-no scent, or warm water) Clean mask, tubing, filter, andwater chamber weekly in mild no scent dish soap and water. Hang to dry. If you have any sleepiness while driving you MUST avoid operating a vehicle or machinery. If you have difficulty with your equipment, or need to replace your mask or hoses, please contact your homecare agency. A weight change of 20 pounds or more may have an effect on your equipment; if you are experiencing problems please call for an appointment. If you have any further questions, please call the [facility] at [phone].
--- OUTSIDE RECORDS SUMMARY | 2018-04-21 17:47 | XMS REPORT | Continuity of Care Document ---
:1950 External Reference #:[id number] Author Name Leana Hidalgo Care Team Providers Name Role Phone Good Hernandez MD Primary Care Physician Unavailable Payers Type Date Identification Numbers Payment Provider Subscriber Policy Number: [id number] Medicare Ranjan Villalobos PayID: [id number] [address] [place] [address] Expires: 2017 Policy Number: [id number] Medicare Ranjan Villalobos PayID: [id number] [address] [place] [address] Effective: 2011 Policy Number: [id number] [employer] Ranjan Villalobos Expires: 2013 PayID: [id number] [address] [address] [place] [address] Effective: 2009 Policy Number: [id number] Medicaid Ranjan Villalobos Expires: 2011 PayID: [id number] [address] [place] [address] Effective: 2007 Policy Number: [id number] [employer] Ranjan Villalobos Expires: 2010 PayID: [id number] [address] [address] [place]UAN DAVID Brar [address] Advance Directives Type Date Description Status Comment Other Directive 05/06/2017 Health Care Proxy Current and Verified Problems Date Description Provider Status Onset: 04/04/2007 Pure hypercholesterolemia Arcadio Renee M.D.,FACP Onset: 04/04/2007 Benign essential hypertension Arcadio Renee M.D.,HUBER Onset: 04/04/2007 Attention deficit hyperactivity Good Hernandez, Active disorder ChristieFACP Onset: 12/22/2007 Coronary arteriosclerosis Good Hernandez Active HUBER Soriano Note: on CTA Onset: 05/11/2012 Insomnia Good Hernandez M.D.FACP Active Onset: 05/13/2012 Benign prostatic hypertrophy Good Hernandez M.D.FACP Active without outflow obstruction Onset: 02/20/2013 Impotence of organic origin Good Hernandez M.D.FACP Active Onset: 04/29/2015 Empty sella syndrome Good Hernandez M.D.,FACP Active Note: incidental on MRI Onset: 07/24/2016 Aortic valve stenosis Good Hernandez M.D.,FACP Active Note: mild Onset: 01/07/2017 Obstructive sleep apnea Good Hernandez M.D.,HUBER Active syndrome Note: on CPAP Onset: 02/14/2008 Mixed hyperlipidemia Good Hernandez M.D.FACP Inactive Inactive: 08/19/2012 Onset: 08/12/2016 Difficulty breathing Fadia Khan MD Inactive Inactive: 10/08/2016 Onset: 08/19/2012 Impaired fasting glycaemia Good Hernandez M.D.,FACP Resolved Resolved: 07/21/2017 Family History Date Family Member(s) Problem(s) Comments General Diabetes General Heart Disease Father due to Heart () - at Disease age 77 Father [place] at 52 Father Diabetes, Non Insulin Dependent [...] Patient has never smoked Smoking Status Reviewed: 03/30/18 Patient has never smoked Exercise Type/Frequency Exercises regularly 1 hour every other day Allergies, Adverse Reactions, Alerts Date Description Reaction Status Severity Comments 03/22/2012 Niacin Active severe flushing 05/23/2013 Lisinopril Active cough 06/01/2017 Atorvastatin Active Moderate muscle pain, elevated CPK levels 04/04/2007 NKDA Inactive Medications Medication Date Status Form Strength Qnty SIG Indications Ordering Provider Methylphenidate 12/28 Active Capsules ER 20mg 30cap 1 by mouth F90.8 Good Hydrochloride ER /2017 s every Jimena Hernandez, morning M.D.,FACP Androgel Pump 09/20 Active Gel 20.25mg/A 75gm [address] topical Jimena Hernandze, (1.62%) daily M.D.,FACP Crestor 06/01 Active Tablets 10mg 90tab take 0.5 I25.10 s tablet Jimena Hernandez, every M.D.,FACP other day Vascepa 01/16 Active Capsules 1gm 120ca take two ps capsules Jimena Hernandez, by mouth M.D.,FACP twice a day as directed Losartan 01/07 Active Tablets 50mg 90tab 1 by mouth Good s every day Jimena Hernandez M.D.,FACP Co-Enzyme Q10 09/30 Active Capsules 100mg 1 tab bid R73.01 Orestes Libertad Lopez M.D. Lasanoprost 08/11 Active 2 drops nightly as directed Multi For Him 07/02 Active Capsules once a day Jimena Hernandez M.D.,FACP Triamterene/[place] 11/05 Active Tablets 37.5-25mg 90tab take one Venancio Hernandez chlorothiazide s tablet by Jimena Hernandez mouth once M.D.,FACP daily [place] 02/13 Active Capsules Not Sure 2 tabs PO qd Jimena Hernandez M.D.,FACP Zolpidem Tartrate 11/13 Active Tablets 10mg 30tab 1/2-1 s tablet by Jimena Hernandez, mouth M.D.,FACP every night at bedtime as needed mdd 1 Loratadine 0000 Active Tablets 10mg 30tab 1 tablet Unknown /0000 s daily Vitamin D-3 00/00 Active Capsules 2000Unit 1 by mouth Unknown /0000 every day Aspirin 00 Active Tablets 81mg 1 by mouth Unknown /0000 every day Vyvanse 12/15 Hx Capsules 20mg 30cap 1 by mouth F90.8 Good /2017 s every Jimena Hernandez, - morning M.D.,FACP 12/28 Dexmethylphenidat 12/08 Hx Tablets 10mg 60tab 1 tab PO F90.8 Good e HCL /2017 s in Am, 1 Jimena Hernandez, - po in M.D.,FACP 12/15 early afternoon prn Methylphenidate 12/03 Hx Capsules ER 20mg 60cap 1 cap by F90.8 Venancio Hernandez HCL ER (CD) s mouth bid Jimena Hernandez, - prn [facility] 12/08 Methylphenidate 10/25 Hx Tablets ER 27mg 60tab 1 by mouth F90.8 [place] HCL ER /2017 s every Pachika - morning, 1 , M.D. 12/03 in afternoon as needed Testosterone 07/21 Hx Solution 30mg/Act 180ml 2 pumps E29.1 Good under each Jimena Hernandez, - arm daily M.D.,[facility] 09/20 (4 total) Atorvastatin 06/01 Hx Tablets 20mg 90tab take 1 I25.10 Good Calcium s tablet at Jimena Hernandez, - bedtime M.D.,FACP 06/01 Naproxen 05/06 Hx Tablets 500mg 14tab 1 by mouth Good s twice a Jimena Hernandez, - day as M.D.,FACP 07/13 needed Aspirin 01/[address] 325mg 1/2 by Good mouth Jimena Hernandez, - every day M.D.,FACP 05/06 Crestor 09/30 Hx Tablets 10mg 90tab take 1 I25.10 Good s tablet Jimena Hernandez, - once daily M.D.,FACP 06/01 directed Crestor 09/21 Hx Tablets 5mg 1 by mouth I25.10 Orestes /Gela every day Libertad Lopez, 09/29 M.D. /2016 Co-Enzyme Q10 08/12 Hx Capsules 200mg 90cap 2 by mouth R73.01 Orestes s every F. - morning Mauser, 09/30 and 2 M.D. every night Lovaza 08/11 Hx Capsules 1gm take two capsules - by mouth 01/16 twice a day Chlorpheniramine 03/09 Hx Tablets 4mg bid prn Good Male Jimena Hernandez, - M.D.,FACP 06/25 Fluticasone 08/29 Hx Suspension 50mcg/Act 16gm 2 sprays R05 Nicola Propionate each Pachikara - nostril , M.D. 06/25 Benzonatate 08/01 Hx Capsules 200mg 30cap not taking s by mouth Jimena Hernandez, - three M.D.,FACP 06/25 times day as needed Mucinex 08/01 Hx Tablets ER 600mg 20tab twice a 12HR s day as Jimena Hernandez, - needed M.D.,FACP 06/25 Amoxicillin 08/01 Hx Capsules 500mg 40cap 2 tabs by s mouth Jimena Hernandez, - twice a M.D.,FACP 08/11 day for days Aspirin 07/02 Hx Tablets 81mg 1 by mouth every day Jimena Hernandez, - (pt states M.D.,FACP 01/07 he takes 05/04 aspirin 325mg nightly) Methylphenidate 07/02 Hx Capsules ER 20mg 90cap 1-2 by F90.8 Good HCL ER (CD) s mouth Jimena Hernandez, - every M.D.,FACP 10/25 morning, and 1 tab in at afternoon as needed Axiron 05/08 Hx Solution 30mg/Act 180ml 2 pumps E29.1 under each Jimena Hernandez, - arm daily M.D.,FACP 07/21 (4 total) Losartan 05/01 Hx Tablets 25mg 90tab take one Good s tablet by Jimena Hernandez, - mouth [...] tab by 709.9 s mouth two Nye, MIS SPECIALIST - times a 03/13 day x days Methylphenidate 12/13 Hx Capsules ER 20mg 90cap 1-2 by Good BERNAL ER () s mouth Jimena Hernandez, - every M.D.,FACP 03/18 and 1 tab in at night as needed Ibuprofen 09/29 Hx Tablets 800mg 60tab take 1 724.2 Nena s tablet 3 Ursula, - times a N.P. . Vascepa 05/05 Hx Capsules 1gm 120ca take two E78.2 ps capsules Jimena Hernandez, - by mouth M.D.,FACP 08/11 twice a day as directed Viagra 02/20 Hx Tablets 50mg 10tab 1 po prn 607.84 s Jimena Hernandez, - M.D.,FACP 12/27 Crestor 02/20 Hx Tablets 10mg 90tab take 1/2 I25.10 Good s tablet Jimena Hernandez, - once daily M.D.,FACP 09/21 directed 09/02/16 decreased by [facility] Methylphenidate 11/15 Hx Capsules ER 20mg 90cap 1-2 by Good BERNAL s mouth Jimena Hernandez, - every M.D.,FACP 12/13, and 1 tab in at night as needed Voltaren 07/11 Hx Gel 1% 100g apply 1 gms to Jimena Hernandez, - affected M.D.,FACP 08/19 area bid prn Zyflamed 05/13 Hx 600.00 Renzo Shannon M.D.,[facility] 07/11 Triamterene/[place] 04/14 Hx Tablets 37.5-25mg 90tab 1 po qd chlorothi Renzo Omer M.D.,[facility] 04/25 Amoxicillin 03/22 Hx Tablets 500mg 40tab 2 tabs po 461.0 s bid for 10 Varun. Renzo Hernandez days Radha.Jimena,[facility] 05/13 Viagra 02/08 Hx Tablets 50mg 10tab 1 po prn 607.84 Renzo Omer M.D.,[facility] 02/15 Aspirin 07/08 Hx Tablets 325mg 90tab 1 po qd Renzo Omer M.D.,[facility] 07/02 Ritalin [place] 06/01 Hx Caps ER 20mg 90cap 1 po tid 24HR Renzo Omer M.D.,[facility] 11/15 Lipitor 05/19 Hx Tablets 10mg 30tab Take One 414.01 s Tablet By Jimena Hernandez - Mouth Once MMadan,[facility] 02/20 Metadate CD 04/05 Hx Capsules ER 20mg 90cap 1-2 po bid Renzo Omer M.D.,[facility] 06/01 Simvastatin 04/05 Hx Tablets 20mg 30tab 1 po qpm 414.0 Renzo Omer M.D.,[facility] 05/19 Methylphenidate 03/25 Hx Caps ER 20mg 90cap 1 po tid Good 24HR Renzo Omer M.D.,[facility] 04/05 Maxzide-25 09/15 Hx Tablets 37.5-25mg 30tab 1 po qd 302.72 Renzo Omer M.D.,[facility] 05/13 Lipitor 04/10 Hx Tablets 10mg 30tab Take One 414.0 s Tablet By Jimena Hernandez, - Mouth M.DRebecca,FACP 04/05 Every Ritalin [place] 03/21 Hx Caps ER 20mg 90cap 1 po tid 24HR s Renzo Shannon M.D.,[facility] 03/25 Levaquin 03/17 Hx Tablets 750mg 7tabs once daily 466.0 Tigist Muller M.D. 03/20 Ibuprofen 03/15 Hx Tablets 600mg 60tab tid PO for 715.15 s 1 wk with Jimena Hernandez, - food, then Christie,[facility] 05/17 prn Multivitamins 02/13 Hx Tablets 90tab 1 po qd Renzo Omer M.D.,[facility] 02/08 Crestor 02/13 Hx Tablets 5mg 30tab 1 tablet 414.0 s po qpm Renzo Shannon M.D.,[facility] 04/10 Relenza Diskhaler 08/17 Hx Aerosol 5mg/Blist 10d 1 er inhalatino Jimena Hernandez, - q24h for Christie,[facility] 11/13 Dyazide 02/13 Hx Caps 37.5-25mg 90cap Take One 302.72 s Capsule By Jimena Hernandez - Mouth M.DRebecca,[facility] 09/15 Morning Lovaza 02/13 Hx Capsules 1gm 120ca Take Two 272.2 ps Capsules Jimena Hernandez, - By Mouth M.DRebecca,[facility] 05/05 Twice A Day Niaspan 12/21 Hx Tablets ER 500mg 45tab 1-2 PO QHS s Renzo Shannon M.D.,[facility] 02/13 Crestor 12/20 Hx Tabs 10mg 30tab Take One 272.0 s Tablet By Jimena Hernandez, - Mouth M.DRebecca,[facility] 02/13 Fish Oil 12/19 Hx Capsules 1000mg 1 PO qhs 272.2 Renzo Shannon M.D.,[facility] 02/13 Methylphenidate 09/01 Hx Tablets 20mg 90tab 1 po tid Good HCL s prRenzo Coreas M.D.,[facility] 03/21 Tamiflu 07/07 Hx Capsules 75mg 10cap 1 po bid x s 5 days Renzo Shannon M.D.,[facility] 10/24 Ambien 05/10 Hx Tablets 10mg 30tab 1/2-1 qhs Good s prn Renzo Shannon M.D.,[facility] 11/13 Lipitor 04/04 Hx Tablets 10mg 90tab 1 po qd 272.0 Good /2006 Renzo Omer M.D.,[facility] 12/20 Lisinopril/Hydroc Hx Tablets 10-12.5 30tab 1 po qd 302.72 Venancio Hernandez hlorothiazide /0000 Renzo Omer M.D.,[facility] 02/13 Methylphenidate Hx Tablets ER 20mg 90tab 1tab tid Good HCL ER /0000 Renzo Omer M.D.,[facility] 08/30 Ritalin LA Hx Caps ER 20mg 90cap 1 po tid Good / 24HR Renzo Omer M.D.,[facility] 09/01 Aspir-Kim Hx Tablets DR 325mg 30tab qd PO Unknown / s - 07/08 Xalatan Hx Solution 0.005% ou qhs 1 Unknown /0000 ggt - 08/11 Losartan Hx Tablets 25mg 90tab 1 po qd Good Potassium / Renzo Omer M.D.,[facility] 05/06 Benadryl Hx Cream 1-0.1% 28.30 apply to Unknown / 0gm affected - area twice 02/08 Zyflomeng Hx 600.00 Unknown /0000 - 05/13 Magdi Hx 2 po qd Unknown /0000 - 12/13 [place] Johnson Hx Capsules 550mg 1 tablet Unknown /0000 morning, 1 - tablet 04/29 before bed Glucosamine 00/00 Hx Capsules 1500Com 1 by mouth Unknown Chondroitin 1500 /0000 every day Complex - 07/02 Cement Berries 0000 Hx Capsules 565mg Unknown /0000 - 07/02 Garlic Oil 0000 Hx Capsules 2mg daily Unknown /0000 - 12/27 Immunizations CPT Code Status Date Vaccine Reaction Lot # [id number] Given 03/30/2018 Pneumococcal Conjugate [id number] Vaccine 13 Valent For Intramuscular Use 12022 Given 03/16/2018 Influenza Virus Vaccine, Quadrivalent, Split, Preservative Free 72330 Given 01/07/2017 Influenza Virus Vaccine, [id number] Quadrivalent, Split, Preservative Free 82846 Given 01/30/2015 Influenza Virus Vaccine, no complaints, no [id number] Quadrivalent, Split, reaction Preservative Free 04490 Given 12/13/2013 Zoster (Zostavax) [id number] 24584 Given 02/20/2013 Flu Vaccine Split Virus [id number] Preservative Free For Indiv 3Yr Older Q2038 Given 02/09/2012 Fluzone Vaccine [id number] 09119 Given 07/09/2011 Tdap - [id number] Tetanus/Diptheria/Acellular Pertussis 99305 Given 07/09/2011 Influenza Virus 3Yrs & Over [id number] 53573 Given 02/09/2010 Influenza Virus 3Yrs & Over 93281 Given 05/18/2000 Td Toxoids Adsorbed For Use 7Yrs Or Older For Intramuscular Use Vital Signs Date Vital Result Comment 03/30/2018 2:18pm Height 65.5 inches 5'5.50" Weight [...] Date Facility Test Result H/L Range Note Laboratory test 10/28/2017 [facility] PSA Screening 4.318 ng/mL High 0-4.000 [address] [place] [address] [phone] Lipid Profile 10/28/2017 [facility] Triglycerides 44 mg/dL 2 (Trig/Chol/HDL) [address] [place], [place] [id number] [phone] Cholesterol 209 mg/dL 3 HDL Cholesterol 59.0 mg/dL 4 LDL Cholesterol 141 mg/dL 5 Testosterone Free 10/28/2017 [facility] Free 7.87 3.47-13.0 6 & Total [address] Testosterone ng/[place] [address] ng/dl [phone] Testosterone 328 ng/dL 240-950 7 Comp Metabolic Panel 10/28/2017 [facility] Sodium 140 mmol/L N 135-[address] [place], [place] [id number] [phone] Potassium 4.2 mmol/L N 3.5-5.0 Chloride 103 [...] Egfr Non- 58.0 >60 Egfr 70.1 >60 8 CBC Auto Diff 10/28/2017 [facility] White Blood 4.7 10^3/uL N 3.5-10.[address] [place] [address] [phone] Red Blood Count 5.47 10^6/uL High 4.00-5.40 [...] 0-2 Nucleated Red Blood Cells % 0 Basic Metabolic Panel 07/14/2017 [facility] Sodium 135 mmol/L N 133-[address] [place], [place] [id number] [phone] Potassium 3.9 mmol/L N 3.5-5.0 Chloride 99 mmol/L Low 101-111 Co2 Carbon Dioxide 28 mmol/L N 22-32 Anion Gap 8 mmol/L N 2-11 Glucose 94 mg/dL N 70-100 Blood Urea Nitrogen 38 mg/dL High 6-24 Creatinine 1.34 mg/dL High 0.67-1.17 BUN/Creatinine Ratio 28.4 High 8-20 Calcium 9.6 mg/dL N 8.6-10.3 Egfr Non- 53.7 >60 Egfr 69.0 >60 9 Laboratory test 07/14/2017 [facility] Hemoglobin A1c 5.7 % High 4.0-5.[address] (Glyco HGB) [place] [address] [phone] Creatine Kinase(CK) 294 U/L High 10-223 Testosterone 06/23/2017 [facility] Free 1.60 Abnormal 3.67- 13.9 11 Free & Total 101 Testosterone ng/[place] [address] ng/dl [phone] Testosterone 94 ng/dL Abnormal 240-950 12 Lipid Profile 06/01/2017 [facility] Triglycerides 41 mg/dL 13 (Trig/Chol/HDL) [address] [place] [address] [phone] Cholesterol 164 mg/dL 14 HDL Cholesterol 48.3 mg/dL 15 LDL Cholesterol 108 mg/dL 16 Comp Metabolic Panel 06/01/2017 [facility] Sodium 137 mmol/L N 133-145 [address] [place] [address] [phone] Potassium 4.3 mmol/L N 3.5-5.0 Chloride 102 [...] Egfr Non- 54.1 >60 Egfr 69.6 >60 17 CBC Auto Diff 06/01/2017 [facility] White Blood 5.0 10^3/uL N 3.5-10.8 [address] [place] [address] [phone] Red Blood Count 5.63 10^6/uL High 4.0-5.4 [...] Blood Cells % 0.1 Laboratory test 06/01/2017 [facility] Testosterone 409.19 N 240-[address] Total ng/[place] [address] [phone] PSA Screening 4.591 ng/mL High 0-4.000 18 Erythrocyte Sed Rate 10 mm/Hr N 0-20 Laboratory test 11/17/2016 [facility] Creatine 188 U/L N 10- 223 [address] Kinase(CK) [place] [address] [phone] CBC Auto Diff 11/17/2016 [facility] White Blood 6.5 N 3.5- 10.[address] Count 10^3/[place] [address] [phone] Red Blood Count 5.73 10^6/uL High 4.0-5.4 [...] Cells % 0.1 N Laboratory test 11/17/2016 [facility] Testosterone 458.80 N 240-[address] Total ng/[place] [address] [phone] Lipid Panel - 10/28/2016 [facility] Creatine 444 U/L High 10- [address] Kinase(CK) [place] [address] [phone] Comp Metabolic 10/28/2016 [facility] Sodium 138 mmol/L N 133- [address] [place] [address] [phone] Potassium 3.7 mmol/L N 3.5-5.0 Chloride 102 [...] 54.1 N >60 Egfr 69.6 N >60 20 Lipid Profile 10/28/2016 [facility] Triglycerides 83 mg/dL N 21 (Trig/Chol/HDL) [address] [place], [place] [id number] [phone] Cholesterol 177 mg/dL N 22 HDL Cholesterol 48.9 mg/dL N 23 LDL Cholesterol 112 mg/dL N 24 Laboratory test 08/27/2016 [facility] Creatine 252 U/L High 10 -[address] Kinase(CK) [place] [address] [phone] Hemoglobin A1c (Glyco HGB) 5.9 % N Less than 6.0 25 Basic Metabolic Panel 08/27/2016 [facility] Sodium 138 mmol/L N 133-145 [address] [place] [address] [phone] Potassium 3.9 mmol/L N 3.5-5.0 Chloride 102 mmol/L N 101-111 Co2 Carbon Dioxide 31 mmol/L N 22-32 Anion Gap 5 mmol/L N 2-11 Glucose 94 mg/dL N 70-100 Blood Urea Nitrogen 25 mg/dL High 6-24 Creatinine 1.33 mg/dL High 0.67-1.17 BUN/Creatinine Ratio 18.8 N 8-20 Calcium 9.7 mg/dL N 8.6-10.3 Egfr Non- 54.3 N >60 Egfr 69.8 N >60 26 Lipid Profile 05/20/2016 [facility] Triglycerides 74 mg/dL N 27 (Trig/Chol/HDL) [address] [place] [address] [phone] Cholesterol 156 mg/dL N 28 HDL Cholesterol 48.2 mg/dL N 29 LDL Cholesterol 93 mg/dL N 30 Comp Metabolic Panel 05/20/2016 [facility] Sodium 139 mmol/L N 133-145 [address] [place] [address] [phone] Potassium 4.0 mmol/L N 3.5-5.0 Chloride 102 [...] 57.3 N >60 Egfr 73.7 N >60 31 Laboratory test 05/20/2016 [facility] PSA Screening 3.483 N 0- 4.000 [address] ng/mL [place], [place] [id number] [phone] CBC Auto Diff 05/20/2016 [facility] White Blood 6.7 N 3.5- 10.[address] Count 10^3/uL [place], [place] [address] [phone] Red Blood Count 5.92 10^6/uL High 4.0-5.4 [...] Cells % 0 N Laboratory test 05/20/2016 [facility] Testosterone 204.80 Low 240-950 [address] Total ng/[place] [address] [phone] Testosterone 02/04/2016 [facility] Free 11.1 N 3.67-13.9 34 Free & Total [address] Testosterone ng/[place] [address] ng/dl [phone] Testosterone 442 ng/dL N 240-950 35 Comp Metabolic Panel 11/14/2015 [facility] Sodium 138 mmol/L N 133-145 [address] [place] [address] [phone] Potassium 3.9 mmol/L N 3.5-5.0 Chloride 104 [...] 58.3 N >60 Egfr 75.0 N >60 36 Laboratory test 11/14/2015 [facility] PSA Screening 2.963 ng/mL N 0-4.000 37 finding [address] [place] [address] [phone] Lipid Profile 11/14/2015 [facility] Triglycerides 58 mg/dL N 38 (Trig/Chol/HDL) [address] [place] [address] [phone] Cholesterol 158 mg/dL N 39 HDL Cholesterol 46.9 mg/dL N 40 LDL Cholesterol 100 mg/dL N 41 CBC Auto Diff 11/14/2015 [facility] White Blood 5.5 10^3/uL N 3.5-10.8 [address] [facility] [place] [address] [phone] Red Blood Count 5.65 10^6/uL High 4.0-5.4 [...] Blood Cells % 0.3 N Testosterone 11/14/2015 [facility] Free 3.58 Abnormal 3.67- 13.9 42 Free & Total [address] Testosterone ng/[place] [address] ng/dl [phone] Testosterone 128 ng/dL Abnormal 240-950 43 Testosterone 08/30/2015 [facility] Free 6.28 N 3.67-13.9 44 Free & Total [address] Testosterone ng/[place] [address] ng/dl [phone] Testosterone 251 ng/dL N 240-950 45 Comp Metabolic Panel 07/29/2015 [facility] Sodium 138 mmol/L N 133-[address] [place] [address] [phone] Potassium 3.9 mmol/L N 3.5-5.0 Chloride 103 [...] 63.2 N >60 Egfr 81.2 N >60 46 Laboratory test 07/29/2015 [facility] PSA Screening 3.058 ng/mL N 0-4.000 [address] [place] [address] [phone] Lipid Profile 07/29/2015 [facility] Triglycerides 74 mg/dL N 48 (Trig/Chol/HDL) [address] [place] [address] [phone] Cholesterol 162 mg/dL N 49 HDL Cholesterol 46.6 mg/dL N 50 LDL Cholesterol 101 mg/dL N 51 CBC Auto Diff 07/29/2015 [facility] White Blood 5.7 10^3/uL N 3.5-10.[address] [place] [address] [phone] Red Blood Count 5.55 10^6/uL High 4.0-5.4 [...] Cells % 0.2 N Laboratory test 05/10/2015 [facility] PSA Screening 2.890 N 0- 4.000 [address] ng/[place] [address] [phone] CBC Auto Diff 05/10/2015 [facility] White Blood 6.1 N 3.5- 10.[address] Count 10^3/[place] [address] [phone] Red Blood Count 5.52 10^6/uL High 4.0-5.4 [...] Blood Cells % 0 N Laboratory 05/10/2015 [facility] Testosterone 158.13 Low 240- 950 test finding [address] Total ng/[place] [address] [phone] Laboratory 04/29/2015 [facility] TSH (Thyroid 3.78 N 0.34- 5.60 test finding [address] Stim Horm) ?IU/[place] [address] [phone] Free T4 (Free Thyroxine) 0.86 ng/mL N 0.61-1.12 Testosterone 04/29/2015 [facility] Free 5.87 N 0.77-13.30 53 Free & Total [address] Testosterone ng/[place] [address] ng/dl [phone] Testosterone 267 ng/dL N 240-950 54 FSH And LH 04/29/2015 [facility] FSH (Follicle Stim 4.3 mIU/mL N 1-[address] Hormone) [place] [address] [phone] LH (Lutenizing Hormone) 3.7 ?IU/mL N 2-12 Lipid Profile 11/22/2014 [facility] Triglycerides 104 mg/dL N 55 (Trig/Chol/HDL) [address] [place] [address] [phone] Cholesterol 154 mg/dL N 56 HDL Cholesterol 40.5 mg/dL N 57 LDL Cholesterol 93 mg/dL N 58 Comp Metabolic Panel 11/22/2014 [facility] Sodium 138 mmol/L N 133-[address] [place] [address] [phone] Potassium 3.7 mmol/L N 3.5-5.0 Chloride 107 [...] 74.0 N >60 Egfr 95.2 N >60 59 Laboratory test 09/29/2013 [facility] Creatine Kinase 207 U/L N 10-[address] [place] [address] [phone] Lipid Profile 05/16/2013 [facility] Triglycerides 56 mg/dL 40 -200 (Trig/Chol/HDL) [address] [place], [place] [address] [phone] Cholesterol 172 mg/dL Less than 200 HDL Cholesterol 64 mg/dL High 40-60 60 Cholesterol/HDL Ratio 2.7 Average 1-4.44 LDL Cholesterol 96.8 Less Than 100 61 Laboratory test 05/16/2013 [facility] Creatine 261 U/L High 0- [address] Kinase [place], [place] [address] [phone] Basic Metabolic 02/02/2013 [facility] Sodium 137 133-[address] mmol/[place] [address] [phone] Potassium 4.1 mmol/L 3.5-5.0 Chloride 102 mmol/L 101-111 Co2 Carbon Dioxide 30.0 mmol/L 22-32 Anion Gap 5.0 mmol/L 2-11 Glucose 100 mg/dL 70-100 Blood Urea Nitrogen 22 mg/dL 6-24 Creatinine 1.10 mg/dL 0.50-1.40 BUN/Creatinine Ratio 20.0 8-20 Calcium 9.1 mg/dL 8.1-9.9 Egfr Non- 68.3 >60 Egfr 87.8 >60 63 Lipid Profile 02/02/2013 [facility] Triglycerides 68 mg/dL 40 -200 (Trig/Chol/HDL) [address] [place] [address] [phone] Cholesterol 209 mg/dL High Less than 200 HDL Cholesterol 56 mg/dL 40-60 64 Cholesterol/HDL Ratio 3.7 Average 1-4.44 LDL Cholesterol 139.4 High Less Than 100 65 Laboratory test finding 02/02/2013 [facility] Alt 28 U/L 14- 54 66 [address] [place] [address] [phone] Ast 27 U/L 12-42 67 Lipid Panel - 07/29/2012 [facility] Creatine 262 U/L High 0- 200 [address] [place], [place] [id number] [phone] Comp Metabolic 07/29/2012 [facility] Sodium 138 133-[address] mmol/[place] [address] [phone] Potassium 4.0 mmol/L 3.5-5.0 Chloride 104 mmol/L [...] Egfr Non- 62.0 >60 Egfr 79.7 >60 69 Lipid Profile 07/29/2012 [facility] [facility] Triglycer[facility] 45 mg/dL 40 -200 (Trig/Chol/HDL) [address] [place] [address] [phone] Cholesterol 186 mg/dL Less than 200 HDL Cholesterol 57 mg/dL 40-60 70 Cholesterol/HDL Ratio 3.3 Average 1-4.44 LDL Cholesterol 120.0 mg/dL High Less Than 100 71 Basic Metabolic Panel 11/11/2011 [facility] Sodium 137 mmol/L 135-[address] [place] [address] [phone] Potassium 3.9 mmol/L 3.5-5.0 Chloride 99 mmol/L Low 101-111 Co2 (Carbon Dioxide) 29.0 mmol/L 22-32 Anion Gap 9.0 mmol/L 2-11 72 Glucose 86 mg/dL 70-100 BUN 22 mg/dL 6-24 Creatinine 1.4 mg/dL 0.50-1.40 One Over Creatinine 0.71 BUN/Creatinine Ratio 15.7 8-20 Calcium 9.6 mg/dL 8.1-9.9 eGFR Non- 51.9 > 60 eGFR 66.7 > 60 73 Testosterone 11/11/2011 [facility] Free 8.4 Abnormal 9-30 74 Free & Total [address] Testosterone ng/[place] [address] [phone] Total Testosterone 312 ng/dL 240-950 75 FSH And LH 11/11/2011 [facility] FSH 4.03 MIU/ML [address] [place] [address] [phone] Lutenizing Hormone 5.13 MIU/ML 77 Laboratory test 11/11/2011 [facility] TSH 1.70 MIU/ML 0.34- 5.[address] [place] [address] [phone] [place] 10/07/2011 [facility] Antinuclear AB NEGATIVE Negative (Antinuclear DRIVE Antibodies) [place] [address] [phone] CBC With Manual 10/07/2011 [facility] White Blood 6.3 CUMM 4.8-10.[address] [place] [address] [phone] Red Cell Count 5.49 CUMM 4.6-6.2 Hemoglobin [...] 3 % 0-6 RBC Morphology NORMAL Lipid Panel - 07/11/2011 [facility] CPK (Creatine 292 U/L High 0-[address] Kinase) [place] [address] [phone] Comp Metabolic 07/11/2011 [facility] Sodium 138 135-[address] mmol/[place] [address] [phone] Potassium 4.7 mmol/L 3.5-5.0 Chloride 101 mmol/L 101-111 Co2 (Carbon Dioxide) 29.0 mmol/L 22-32 Anion Gap 8.0 mmol/L 2-11 79 Glucose 105 mg/dL High 70-100 BUN 17 mg/dL 6-24 Creatinine 1.3 mg/dL 0.50-1.40 One Over Creatinine 0.76 BUN/Creatinine Ratio 13.1 8-20 Calcium 8.8 mg/dL 8.1-9.9 Total Protein 6.5 GM/DL 6.2-8.1 Albumin 3.7 GM/DL 3.6-5.4 Globulin 2.8 GM/DL 2-4 Albumin/Globulin Ratio 1.3 1-3 Bilirubin Total 0.8 mg/dL 0.4-1.5 80 Alkaline Phosphatase 88 U/L 39-117 Alt (SGPT) 74 U/L High 17-63 Ast (Sgot) 39 U/L 12-42 eGFR Non- 56.7 > 60 eGFR 72.9 > 60 81 Lipid Profile 07/11/2011 [facility] Triglyceride 59 mg/dL 40- 200 (Trig/Chol/HDL) [address] [place] [address] [phone] Cholesterol 156 mg/dL Less Than 200 82 High Density Lipoprotein 45 mg/dL 40-60 83 Cholesterol/HDL Ratio 3.47 AVERAGE 1-4.97 Low Density Lipoprotein 99 mg/dL Less Than 100 84 Lipid Panel - 06/06/2010 [facility] CPK (Creatine 246 U/L High 0-[address] Kinase) [place] [address] [phone] Comp Metabolic 06/06/2010 [facility] Sodium 140 135-[address] mmol/[place] [address] [phone] Potassium 4.1 mmol/L 3.5-5.0 Chloride 102 mmol/L 101-111 Co2 (Carbon Dioxide) 31.0 mmol/L 22-32 Anion Gap 7.0 mmol/L 2-11 85 Glucose 95 mg/dL 70-100 BUN 21 mg/dL 6-24 Creatinine 1.10 mg/dL 0.50-1.40 One Over Creatinine 0.90 BUN/Creatinine Ratio 19.1 8-20 Calcium 9.5 mg/dL 8.1-9.9 Total Protein 7.1 GM/DL 6.2-8.1 Albumin 4.1 GM/DL 3.6-5.4 Globulin 3.0 GM/DL 2-4 Albumin/Globulin Ratio 1.4 1-3 Bilirubin Total 0.7 mg/dL 0.4-1.5 86 Alkaline Phosphatase 82 U/L 39-117 Alt (SGPT) 34 U/L 17-63 Ast (Sgot) 31 U/L 12-42 eGFR Non- 69.0 > 60 eGFR 88.7 > 60 87 Lipid Profile 06/06/2010 [facility] Triglyceride 65 mg/dL 40- 200 (Trig/Chol/HDL) [address] [place] [address] [phone] Cholesterol 183 mg/dL Less Than 200 88 High Density Lipoprotein 56 mg/dL 40-60 89 Cholesterol/HDL Ratio 3.27 AVERAGE 1-4.97 Low Density Lipoprotein 114 mg/dL High Less Than 100 90 Lipid Profile 04/07/2010 [facility] Triglyceride 65 mg/dL 40- 200 (Trig/Chol/HDL) [address] [place] [address] [phone] Cholesterol 192 mg/dL Less Than 200 91 High Density Lipoprotein 58 mg/dL 40-60 92 Cholesterol/HDL Ratio 3.31 AVERAGE 1-4.97 Low Density Lipoprotein 121 mg/dL High Less Than 100 93 Laboratory test 04/07/2010 [facility] CPK (Creatine 403 U/L High 0-[address] Kinase) [place] [address] [phone] PSA Screening 2.51 NG/ML 0-4 94 Lipid Panel - 05/28/2009 [facility] CPK (Creatine 278 U/L High 0-[address] Kinase) [place] [address] [phone] Comp Metabolic 05/28/2009 [facility] Sodium 136 135-[address] mmol/[place] [address] [phone] Potassium 3.9 mmol/L 3.5-5.0 Chloride 101 mmol/L 101-111 Co2 (Carbon Dioxide) 32.0 mmol/L 22-32 Anion Gap 3.0 mmol/L 2-11 95 Glucose 99 mg/dL 70-100 96 BUN 18 mg/dL 6-24 Creatinine 1.20 mg/dL 0.50-1.40 One Over Creatinine 0.80 BUN/Creatinine Ratio 15.0 8-20 Calcium 9.2 mg/dL 8.1-9.9 97 Total Protein 6.3 GM/DL 6.2-8.1 Albumin 3.8 GM/DL 3.6-5.4 Globulin 2.5 GM/DL 2-4 Albumin/Globulin Ratio 1.5 1-3 Bilirubin Total 0.6 mg/dL 0.4-1.5 98 Alkaline Phosphatase 62 U/L 39-117 Alt (SGPT) 28 U/L 17-63 Ast (Sgot) 33 U/L 12-42 eGFR Non- 66.6 > 60 eGFR 80.5 > 60 99 Lipid Profile 05/28/2009 [facility] Triglyceride 63 mg/dL 40- 200 (Trig/Chol/HDL) [address] [place] [address] [phone] Cholesterol 168 mg/dL Less Than 200 100 High Density Lipoprotein 53 mg/dL 40-60 101 Cholesterol/HDL Ratio 3.17 AVERAGE 1-4.97 Low Density Lipoprotein 102 mg/dL High Less Than 100 102 Laboratory test 12/26/2008 [facility] CPK (Creatine 284 U/L High 0-[address] Kinase) [place] [address] [phone] C Reactive Protein High Sensit 1.7 mg/L < 7.48 103 Liver Function 12/26/2008 [facility] Total Protein 6.4 GM/DL 6.2-8.1 Panel [address] [place] [address] [phone] Albumin 3.8 GM/DL 3.6-5.4 Globulin 2.6 GM/DL 2-4 Albumin/Globulin Ratio 1.5 1-3 Bilirubin Total 0.7 mg/dL 0.4-1.5 104 Bilirubin Direct 0.1 mg/dL 0.1-0.5 Indirect Bilirubin 0.6 mg/dL 0.1-0.75 Alkaline Phosphatase 75 U/L 39-117 Alt (SGPT) 35 U/L 17-63 Ast (Sgot) 33 U/L 12-42 Lipid Profile 12/26/2008 [facility] Triglyceride 63 mg/dL 40- 200 (Trig/Chol/HDL) [address] [place] [address] [phone] Cholesterol 150 mg/dL Less Than 200 105 High Density Lipoprotein 49 mg/dL 40-60 106 Cholesterol/HDL Ratio 3.06 AVERAGE 1-4.97 Low Density Lipoprotein 88 mg/dL Less Than 100 107 Comp Metabolic Panel 11/07/2008 [facility] Sodium 140 mmol/L 135-[address] [place] [address] [phone] Potassium 3.9 mmol/L 3.5-5.0 Chloride 101 mmol/L 101-111 Co2 (Carbon Dioxide) 32.0 mmol/L 22-32 Anion Gap 7.0 mmol/L 2-11 108 Glucose 100 mg/dL 70-100 109 BUN 17 mg/dL 6-24 Creatinine 1.10 mg/dL 0.50-1.40 One Over Creatinine 0.90 BUN/Creatinine Ratio 15.5 8-20 Calcium 9.3 mg/dL 8.1-9.9 110 Total Protein 6.1 GM/DL Low 6.2-8.1 Albumin 3.8 GM/DL 3.6-5.4 Globulin 2.3 GM/DL 2-4 Albumin/Globulin Ratio 1.7 1-3 Bilirubin Total 0.8 mg/dL 0.4-1.5 111 Alkaline Phosphatase 76 U/L 39-117 Alt (SGPT) 31 U/L 17-63 Ast (Sgot) 35 U/L 12-42 eGFR Non- 73.6 > 60 eGFR 89.1 > 60 112 Lipid Profile 11/07/2008 [facility] Triglyceride 95 mg/dL 40- 200 (Trig/Chol/HDL) [address] [place] [address] [phone] Cholesterol 157 mg/dL Less Than 200 113 High Density Lipoprotein 51 mg/dL 40-60 114 Cholesterol/HDL Ratio 3.08 AVERAGE 1-4.97 Low Density Lipoprotein 87 mg/dL Less Than 100 115 Lipid Panel - 11/07/2008 [facility] CPK (Creatine 384 U/L High 0-[address] Kin[place]) [place] [address] [phone] Laboratory test 11/07/2008 [facility] TSH 3.71 0.34-5.[address] MIU/[place] [address] [phone] Vitamin B12 And 11/07/2008 [facility] Vitamin B12 315 180- 914 Folate Serum 101 pg/[place] [address] [phone] Folic Acid 9.9 NG/ML 2-16 Laboratory test 08/07/2008 [facility] CPK (Creatine 258 U/L High 0-[address] Kinase) [place] [address] [phone] Liver Function 08/07/2008 [facility] Total Protein 6.6 6.2- 8.[address] GM/[place] [address] [phone] Albumin 3.8 GM/DL 3.6-5.4 Globulin 2.8 GM/DL 2-4 Albumin/Globulin Ratio 1.4 1-3 Bilirubin Total 0.8 mg/dL 0.4-1.5 Bilirubin Direct < 0.1 mg/dL Low 0.1-0.5 Indirect Bilirubin (SEE NOTE) mg/dL 0.1-0.75 116 Alkaline Phosphatase 69 U/L 39-117 Alt (SGPT) 26 U/L 17-63 Ast (Sgot) 30 U/L 12- Lipid Panel - 05/23/2008 [facility] CPK (Creatine 332 U/L High 0-[address] Kinase) [place] [address] [phone] Comp Metabolic 05/23/2008 [facility] Sodium 138 135-[address] mmol/[place] [address] [phone] Potassium 3.7 mmol/L 3.5-5.0 Chloride 99 mmol/L Low 101-111 Co2 (Carbon Dioxide) 31.0 mmol/L 22-32 Anion Gap 8.0 mmol/L 2-11 117 Glucose 94 mg/dL 70-100 118 BUN 18 mg/dL 6-24 Creatinine 1.30 mg/dL 0.50-1.40 One Over Creatinine 0.70 BUN/Creatinine Ratio 13.8 8-20 Calcium 9.4 mg/dL 8.1-9.9 119 Total Protein 6.7 GM/DL 6.2-8.1 Albumin 4.0 GM/DL 3.6-5.4 Globulin 2.7 GM/DL 2-4 Albumin/Globulin Ratio 1.5 1-3 Bilirubin Total 0.9 mg/dL 0.4-1.5 Alkaline Phosphatase 79 U/L 39-117 Alt (SGPT) 28 U/L 17-63 Ast (Sgot) 34 U/L 12-42 Lipid Profile 05/23/2008 [facility] Triglyceride 61 mg/dL 40- 200 (Trig/Chol/HDL) [address] [place] [address] [phone] Cholesterol 142 mg/dL Less Than 200 120 High Density Lipoprotein 53 mg/dL 40-60 121 Cholesterol/HDL Ratio 2.68 AVERAGE 1-4.97 Low Density Lipoprotein 77 mg/dL Less Than 100 122 Lipid Panel - 02/07/2008 [facility] CPK (Creatine 268 U/L High 0-[address] [place]) [place] [address] [phone] Comp Metabolic 02/07/2008 [facility] Sodium 137 135-[address] mmol/[place] [address] [phone] Potassium 3.8 mmol/L 3.5-5.0 Chloride 101 mmol/L 101-111 Co2 (Carbon Dioxide) 32.0 mmol/L 22-32 Anion Gap 4.0 mmol/L 2-11 123 Glucose 97 mg/dL 70-100 124 BUN 13 mg/dL 6-24 Creatinine 1.1 mg/dL 0.5-1.4 One Over Creatinine 0.90 BUN/Creatinine Ratio 11.8 8-20 Calcium 9.1 mg/dL 8.1-9.9 125 Total Protein 6.6 GM/DL 6.2-8.1 Albumin 4.4 GM/DL 3.6-5.4 Globulin 2.2 GM/DL 2-4 Albumin/Globulin Ratio 2.0 1-3 Bilirubin Total 1.0 mg/dL 0.4-1.5 Alkaline Phosphatase 80 U/L 39-117 Alt (SGPT) 28 U/L 17-63 Ast (Sgot) 31 U/L 12-42 Lipid Profile 02/07/2008 [facility] Triglyceride 78 mg/dL 40- 200 (Trig/Chol/HDL) [address] [place] [address] [phone] Cholesterol 152 mg/dL Less Than 200 126 High Density Lipoprotein 44 mg/dL 40-60 127 Cholesterol/HDL Ratio 3.45 AVERAGE 1-4.97 Low Density Lipoprotein 92 mg/dL Less Than 100 128 Lipid Profile 11/23/2007 [facility] Triglyceride 77 mg/dL 40- 200 (Trig/Chol/HDL) [address] [place] [address] [phone] Cholesterol 180 mg/dL Less Than 200 129 High Density Lipoprotein 46 mg/dL 40-60 130 Cholesterol/HDL Ratio 3.91 AVERAGE 1-4.97 Low Density Lipoprotein 119 mg/dL High Less Than 100 131 Comp Metabolic Panel 11/23/2007 [facility] Sodium 138 mmol/L 135-[address] [place] [address] [phone] Potassium 4.1 mmol/L 3.5-5.0 Chloride 103 mmol/L 101-111 Co2 (Carbon Dioxide) 30.0 mmol/L 22-32 Anion Gap 5.0 mmol/L 2-11 132 Glucose 96 mg/dL 70-105 BUN 21 mg/dL 6-24 Creatinine 1.3 mg/dL 0.5-1.4 One Over Creatinine 0.76 BUN/Creatinine Ratio 16.2 8-20 Calcium 8.9 mg/dL 8.1-9.9 133 Total Protein 6.6 GM/DL 6.2-8.1 Albumin 4.0 GM/DL 3.6-5.4 Globulin 2.6 GM/DL 2-4 Albumin/Globulin Ratio 1.5 1-3 Bilirubin Total 0.6 mg/dL 0.4-1.5 Alkaline Phosphatase 79 U/L 39-117 Alt (SGPT) 27 U/L 17-63 Ast (Sgot) 27 U/L 12-42 Lipid Panel - 11/23/2007 [facility] CPK (Creatine 264 U/L High 0-[address] Kinase) [place] [address] [phone] Lipid Profile 07/11/2007 [facility] Cholesterol/HD 4.11 AVERAGE 1-4.97 134 (Trig/Chol/HD [address] [place]) [place] [address] [phone] Cholesterol 185 mg/dL Less Than 200 135 Triglyceride 76 mg/dL 40-200 High Density Lipoprotein 45 mg/dL 40-60 Low Density Lipoprotein 125 mg/dL High Less Than 100 136 Comp Metabolic Panel 07/11/2007 [facility] One Over Creatinine 0.[address] [place] [address] [phone] Anion Gap 3.0 mmol/L 2-11 137 Albumin/Globulin Ratio 1.3 1-3 Albumin 3.9 GM/DL [...] 16.9 8-20 Creatinine 1.3 mg/dL 0.5-1.4 Lipid Panel - 07/11/2007 [facility] CPK (Creatine 247 U/L High 0-[address] Kin[place]) [place] [address] [phone] Laboratory test 04/13/2007 [facility] PSA Screening 1.49 0-4 138, finding [address] NG/ML [address] [place] [address] [phone] Liver Function 04/13/2007 [facility] Albumin/Globul 1.5 1-[address] [place] [address] [phone] Albumin 4.2 GM/DL 3.6-5.4 Alkaline Phosphatase 76 U/L 39-117 Alt (SGPT) 26 U/L 17-63 Ast (Sgot) 27 U/L 12-42 Bilirubin Direct < 0.1 mg/dL Low 0.1-0.5 Globulin 2.8 GM/DL 2-4 Bilirubin Total 0.8 mg/dL 0.4-1.5 Total Protein 7.0 GM/DL 6.2-8.1 Lipid Profile 04/13/2007 [facility] Cholesterol/HDL 5.49 High 1-4.97 (Trig/Chol/HDL) [address] [place] [address] [phone] Cholesterol 269 mg/dL High Less Than 200 140 Triglyceride 83 mg/dL 40-200 High Density Lipoprotein 49 mg/dL 40-60 Low Density Lipoprotein 203 mg/dL High Less Than 100 141 Laboratory test 04/13/2007 [facility] CPK (Creatine 327 U/L High 0-[address] Kinase) [place] [address] [phone] 1 Serum levels of PSA measured using the [employer] DXI Hybritech immunoassay should not be interpreted as absolute evidence of the presence or absence of disease. The PSA value should be used in conjunction with other pertinent clinical diagnostic procedures. The values obtained with different assay methods or kits cannot be used interchangeably. 2 Desirable: <150 Borderline High: 150-199 High: 200-499 Very High: >500 3 Desirable: <200 Borderline High: 200-239 High: >239 4 Low: <40 Desirable: 40-60 High: >60 5 Desirable: <100 Near Optimal: 100-129 Borderline High: 130-159 High: 160-189 Very High: >189 6 ADDITIONAL INFORMATION Testing performed by [facility]. This test was developed and its performance characteristics determined by [facility] in a manner consistent with CLIA requirements. This test has not been cleared or approved by the U.S. Food and Drug Administration. 7 ADDITIONAL INFORMATION Testing performed by Liquid Chromatography-Tandem Mass Spectrometry (LC-MS/MS). This test was developed and its performance characteristics determined by [facility] in a manner consistent with CLIA requirements. This test has not been cleared or approved by the U.S. Food and Drug Administration. Test Performed by: [facility] [address] [place] [address] 8 Because ethnic data is not always readily [...] 15-29 5 Kidney failure <15 (or dialysis) 9 Because ethnic data is not always readily [...] 15-29 5 Kidney failure <15 (or dialysis) 10 Therapeutic target for the treatment of diabetes mellitus patients is <7% HBA1C, and in selective patients <6.0%. Please refer to [place] [employer] diabetic care guidelines for further information. 11 ADDITIONAL INFORMATION Testing performed by [facility]. This test was developed and its performance characteristics determined by [facility] in a manner consistent with CLIA requirements. This test has not been cleared or approved by the U.S. Food and Drug Administration. 12 ADDITIONAL INFORMATION Testing performed by Liquid Chromatography-Tandem Mass Spectrometry (LC-MS/MS). This test was developed and its performance characteristics determined by [facility] in a manner consistent with CLIA requirements. This test has not been cleared or approved by the U.S. Food and Drug Administration. Test Performed by: [address] [id number] 13 Desirable: <150 Borderline High: 150-199 High: 200-499 Very High: >500 14 Desirable: <200 Borderline High: 200-239 High: >239 15 Low: <40 Desirable: 40-60 High: >60 16 Desirable: <100 Near Optimal: 100-129 Borderline High: 130-159 High: 160-189 Very High: >189 17 Because ethnic data is not always readily [...] 15-29 5 Kidney failure <15 (or dialysis) 18 Serum levels of PSA measured using the [employer] DXI Hybritech immunoassay should not be interpreted as absolute evidence of the presence or absence of disease. The PSA value should be used in conjunction with other pertinent clinical diagnostic procedures. The values obtained with different assay methods or kits cannot be used interchangeably. 19 Non-fasting in 1 month 20 Because ethnic data is not always readily [...] 15-29 5 Kidney failure <15 (or dialysis) 21 Desirable <150 Borderline high 150-199 High 200-499 Very High >500 22 Desirable <200 Borderline high 200-239 High >239 23 Low <40 Desirable: 40-60 High: >60 24 Desirable: <100 mg/dL Near Optimal: 100-129 mg/dL Borderline High: 130-159 mg/dL High: 160-189 mg/dL Very High: >189 mg/dL 25 Therapeutic target for the treatment of diabetes Mellitus patients is <7% HBA1C, and in selective patients <6.0%.Please refer to [place] [employer] Diabetic care guidelines for further information. 26 Because ethnic data is not always readily [...] 15-29 5 Kidney failure <15 (or dialysis) 27 Desirable <150 Borderline high 150-199 High 200-499 Very High >500 28 Desirable <200 Borderline high 200-239 High >239 29 Low <40 Desirable: 40-60 High: >60 30 Desirable: <100 mg/dL Near Optimal: 100-129 mg/dL Borderline High: 130-159 mg/dL High: 160-189 mg/dL Very High: >189 mg/dL 31 Because ethnic data is not always readily [...] 15-29 5 Kidney failure <15 (or dialysis) 32 Serum levels of PSA measured using the [employer] DXI Hybritech immunoassay should not be interpreted as absolute evidence of the presence or absence of disease. The PSA value should be used in conjunction with other pertinent clinical diagnostic procedures. The values obtained with different assay methods or kits cannot be used interchangeably. 33 FASTING 10 HOUR 34 ADDITIONAL INFORMATION Testing performed by [facility]. This test was developed and its performance characteristics determined by [facility] in a manner consistent with CLIA requirements. This test has not been cleared or approved by the U.S. Food and Drug Administration. 35 ADDITIONAL INFORMATION Testing performed by Liquid Chromatography-Tandem Mass Spectrometry (LC-MS/MS). This test was developed and its performance characteristics determined by [facility] in a manner consistent with CLIA requirements. This test has not been cleared or approved by the U.S. Food and Drug Administration. Test Performed by: [place] [address] [employer] [facility] [employer]: Misbah Bishop II, M.D., Ph.D. 36 Because ethnic data is not always readily [...] 15-29 5 Kidney failure <15 (or dialysis) 37 Serum levels of PSA measured using the [employer] DXI Hybritech immunoassay should not be interpreted as absolute evidence of the presence or absence of disease. The PSA value should be used in conjunction with other pertinent clinical diagnostic procedures. The values obtained with different assay methods or kits cannot be used interchangeably. 38 Desirable <150 Borderline high 150-199 High 200-499 Very High >500 39 Desirable <200 Borderline high 200-239 High >239 40 Low <40 Desirable: 40-60 High: >60 41 Desirable: <100 mg/dL Near Optimal: 100-129 mg/dL Borderline High: 130-159 mg/dL High: 160-189 mg/dL Very High: >189 mg/dL 42 ADDITIONAL INFORMATION Testing performed by [facility]. 43 ADDITIONAL INFORMATION Testing performed by Liquid Chromatography-Tandem Mass Spectrometry (LC-MS/MS). Test Performed by: [facility] [address] [employer]: Misbah Bishop II, M.D., Ph.D. 44 ADDITIONAL INFORMATION Testing performed by [facility]. 45 ADDITIONAL INFORMATION Testing performed by Liquid Chromatography-Tandem Mass Spectrometry (LC-MS/MS). Test Performed by: [place] [address] [employer] [employer]: Misbah Bishop II, M.D., Ph.D. 46 Because ethnic data is not always readily [...] 15-29 5 Kidney failure <15 (or dialysis) 47 Serum levels of PSA measured using the [employer] DXI Hybritech immunoassay should not be interpreted as absolute evidence of the presence or absence of disease. The PSA value should be used in conjunction with other pertinent clinical diagnostic procedures. The values obtained with different assay methods or kits cannot be used interchangeably. 48 Desirable <150 Borderline high 150-199 High 200-499 Very High >500 49 Desirable <200 Borderline high 200-239 High >239 50 Low <40 Desirable: 40-60 High: >60 51 Desirable: <100 mg/dL Near Optimal: 100-129 mg/dL Borderline High: 130-159 mg/dL High: 160-189 mg/dL Very High: >189 mg/dL 52 Serum levels of PSA measured using the [employer] DXI Hybritech immunoassay should not be interpreted as absolute evidence of the presence or absence of disease. The PSA value should be used in conjunction with other pertinent clinical diagnostic procedures. The values obtained with different assay methods or kits cannot be used interchangeably. 53 ADDITIONAL INFORMATION Testing performed by [facility]. 54 ADDITIONAL INFORMATION Testing performed by Liquid Chromatography-Tandem Mass Spectrometry (LC-MS/MS). Test Performed by: [place] [address] [facility]: Misbah Bishop II, M.D., Ph.D. 55 Desirable <150 Borderline high 150-199 High 200-499 Very High >500 56 Desirable <200 Borderline high 200-239 High >239 57 Low <40 Desirable: 40-60 High: >60 58 Desirable: <100 mg/dL Near Optimal: 100-129 mg/dL Borderline High: 130-159 mg/dL High: 160-189 mg/dL Very High: >189 mg/dL 59 Because ethnic data is not always readily [...] 15-29 5 Kidney failure <15 (or dialysis) 60 HDL Interpretation: Undesirable: High Risk: Less than 40 mg/dL Desirable: Low Risk: Greater than 60 mg/dL 61 LDL Interpretation: Low Risk Optimal Level: LDL Less than 100 mg/dL Near or Above Optimal: LDL 100-129 mg/dL Borderline High Risk: LDL 130-159 mg/dL High Risk: LDL 160-189 mg/dL Very High Risk: LDL Greater than 189 mg/dL 62 FASTING 10 HOUR 63 Because ethnic data is not always [...] 5 Kidney failure <15 (or dialysis) 64 HDL Interpretation: Undesirable: High Risk: Less than 40 mg/dL Desirable: Low Risk: Greater than 60 mg/dL 65 LDL Interpretation: Low Risk Optimal Level: LDL Less than 100 mg/dL Near or Above Optimal: LDL 100-129 mg/dL Borderline High Risk: LDL 130-159 mg/dL High Risk: LDL 160-189 mg/dL Very High Risk: LDL Greater than 189 mg/dL 66 FASTING 67 FASTING 68 FASTING 10 HOUR 69 Because ethnic data is not always readily [...] 15-29 5 Kidney failure <15 (or dialysis) 70 HDL Interpretation: Undesirable: High Risk: Less than 40 MG/DL Desirable: Low Risk: Greater than 60 MG/DL 71 LDL Interpretation: Low Risk Optimal Level: LDL Less than 100 MG/DL Near or Above Optimal: LDL 100-129 MG/DL Borderline High Risk: LDL 130-159 MG/DL High Risk: LDL 160-189 MG/DL Very High Risk: LDL Greater than 189 MG/DL 72 Anion gap measurement may be of limited value in the presence of any alkalosis, especially in a combined acid base disorder. . 73 Because ethnic data is not always [...] 5 Kidney failure <15 (or dialysis) 74 Test Performed by: [place] [address] [facility]: Francisco Boyle III, M.D. 75 Test Performed by: [place] [address] [facility]: Francisco Boyle III, M.D. 76 NORMAL RANGE MALES 1 - 20 NORMALLY MENSTRUATING FEMALES - Follicular Phase 3 - 9 - Mid-Cycle Peak 4 - 23 - Luteal Phase 1 - 6 POSTMENOPAUSAL FEMALES 16 - 114 . 77 NORMAL RANGE MALES 2 - 12 NORMALLY MENSTRUATING FEMALES - Follicular Phase 1 - 18 - Mid-Cycle Peak 24 - 105 - Luteal Phase 0.6 - 20 POSTMENOPAUSAL FEMALES 15 - 62 . 78 FASTING 79 Anion gap measurement may be of limited value in the presence of any alkalosis, especially in a combined acid base disorder. . 80 A metabolite of Naproxen, O-desmethylnaproxen, has been shown to interfere with the Jendrassik-Zenon method for measuring total bilirubin. Samples from patients who have taken Naproxen have shown spurious elevation in total bilirubin levels. 81 Because ethnic data is not always readily [...] 15-29 5 Kidney failure <15 (or dialysis) 82 CHOLESTEROL INTERPRETATION: Desirable: Less than 200 MG/DL Borderline-High Risk: 200-239 MG/DL High-Risk: 240 MG/DL and over 83 HDL INTERPRETATION: Undesirable: High Risk: Less than 40 MG/DL Desirable: Low Risk: Greater than 60 MG/DL 84 LDL INTERPRETATION: Low Risk Optimal Level: LDL Less than 100 MG/DL Near or Above Optimal: LDL 100-129 MG/DL Borderline High Risk: LDL 130-159 MG/DL High Risk: LDL 160-189 MG/DL Very High Risk: LDL Greater than 189 MG/DL 85 Anion gap measurement may be of limited value in the presence of any alkalosis, especially in a combined acid base disorder. . 86 A metabolite of Naproxen, O-desmethylnaproxen, has been shown to interfere with the Jendrassik-Zenon method for measuring total bilirubin. Samples from patients who have taken Naproxen have shown spurious elevation in total bilirubin levels. 87 Because ethnic data is not always readily [...] 15-29 5 Kidney failure <15 (or dialysis) 88 CHOLESTEROL INTERPRETATION: Desirable: Less than 200 MG/DL Borderline-High Risk: 200-239 MG/DL High-Risk: 240 MG/DL and over 89 HDL INTERPRETATION: Undesirable: High Risk: Less than 40 MG/DL Desirable: Low Risk: Greater than 60 MG/DL 90 LDL INTERPRETATION: Low Risk Optimal Level: LDL Less than 100 MG/DL Near or Above Optimal: LDL 100-129 MG/DL Borderline High Risk: LDL 130-159 MG/DL High Risk: LDL 160-189 MG/DL Very High Risk: LDL Greater than 189 MG/DL 91 CHOLESTEROL INTERPRETATION: Desirable: Less than 200 MG/DL Borderline-High Risk: 200-239 MG/DL High-Risk: 240 MG/DL and over 92 HDL INTERPRETATION: Undesirable: High Risk: Less than 40 MG/DL Desirable: Low Risk: Greater than 60 MG/DL 93 LDL INTERPRETATION: Low Risk Optimal Level: LDL Less than 100 MG/DL Near or Above Optimal: LDL 100-129 MG/DL Borderline High Risk: LDL 130-159 MG/DL High Risk: LDL 160-189 MG/DL Very High Risk: LDL Greater than 189 MG/DL 94 * SERUM LEVELS OF PSA MEASURED USING THE [employer] ACCESS HYBRITECH IMMUNOASSAY SHOULD NOT BE INTERPRETED ABSOLUTE EVIDENCE OF THE PRESENCE OR ABSENCE OF DISEASE. THE PSA VALUE SHOULD BE USED IN CONJUNCTION WITH OTHER PERTINENT CLINICAL DIAGNOSTIC PROCEDURES. 95 Anion gap measurement may be of limited value in the presence of any alkalosis, especially in a combined acid base disorder. . 96 Note change in reference range as of 12/22/07. The change was based on recommendations from the [place] [employer]. 97 Please note change in reference range effective 07 . 98 A metabolite of Naproxen, O-desmethylnaproxen, has been shown to interfere with the Jendrassik-Rockbridge method for measuring total bilirubin. Samples from patients who have taken Naproxen have shown spurious elevation in total bilirubin levels. 99 Because ethnic data is not always readily [...] 15-29 5 Kidney failure <15 (or dialysis) 100 CHOLESTEROL INTERPRETATION: Desirable: Less than 200 MG/DL Borderline-High Risk: 200-239 MG/DL High-Risk: 240 MG/DL and over 101 HDL INTERPRETATION: Undesirable: High Risk: Less than 40 MG/DL Desirable: Low Risk: Greater than 60 MG/DL 102 LDL INTERPRETATION: Low Risk Optimal Level: LDL Less than 100 MG/DL Near or Above Optimal: LDL 100-129 MG/DL Borderline High Risk: LDL 130-159 MG/DL High Risk: LDL 160-189 MG/DL Very High Risk: LDL Greater than 189 MG/DL 103 Less Than 1.0......Low Risk of Cardiovascular Disease 1.0-3.0............Medium Risk (<2 Fold Increase) Greater Than 3.0...High Risk (Approximately 2-Fold Increase) The above guidelines are referenced in "Markers of Inflammation and Cardiovascular Disease: Application to Clinical and Public Health Practice." A Statement for Health Professionals from the Centers for Disease Control and Prevention and the [place] [employer]. (Reference: Circulation 2003 107:499-511) SERUM LEVELS OF HIGH SENSITIVITY C-REACTIVE PROTEIN MEASURED BY THE WAYLON YAHAIRA LXi 725 SYSTEM SHOULD NOT BE INTERPRETTED ABSOLUTE EVIDENCE OF THE PRESENCE OR ABSENCE OF DISEASE. A HIGH SENSITIVITY CRP VALUE SHOULD BE USED IN CONJUNCTION WITH OTHER PERTINENT CLINICAL AND DIAGNOSTIC INFORMATION. 104 A metabolite of Naproxen, O-desmethylnaproxen, has been shown to interfere with the Jendrassik-Rockbridge method for measuring total bilirubin. Samples from patients who have taken Naproxen have shown spurious elevation in total bilirubin levels. 105 CHOLESTEROL INTERPRETATION: Desirable: Less than 200 MG/DL Borderline-High Risk: 200-239 MG/DL High-Risk: 240 MG/DL and over 106 HDL INTERPRETATION: Undesirable: High Risk: Less than 40 MG/DL Desirable: Low Risk: Greater than 60 MG/DL 107 LDL INTERPRETATION: Low Risk Optimal Level: LDL Less than 100 MG/DL Near or Above Optimal: LDL 100-129 MG/DL Borderline High Risk: LDL 130-159 MG/DL High Risk: LDL 160-189 MG/DL Very High Risk: LDL Greater than 189 MG/DL 108 Anion gap measurement may be of limited value in the presence of any alkalosis, especially in a combined acid base disorder. . 109 Note change in reference range as of 12/22/07. The change was based on recommendations from the [place] [employer]. 110 Please note change in reference range effective 07 . 111 A metabolite of Naproxen, O-desmethylnaproxen, has been shown to interfere with the Jendrassik-Rockbridge method for measuring total bilirubin. Samples from patients who have taken Naproxen have shown spurious elevation in total bilirubin levels. 112 Because ethnic data is not always readily [...] 15-29 5 Kidney failure <15 (or dialysis) 113 CHOLESTEROL INTERPRETATION: Desirable: Less than 200 MG/DL Borderline-High Risk: 200-239 MG/DL High-Risk: 240 MG/DL and over 114 HDL INTERPRETATION: Undesirable: High Risk: Less than 40 MG/DL Desirable: Low Risk: Greater than 60 MG/DL 115 LDL INTERPRETATION: Low Risk Optimal Level: LDL Less than 100 MG/DL Near or Above Optimal: LDL 100-129 MG/DL Borderline High Risk: LDL 130-159 MG/DL High Risk: LDL 160-189 MG/DL Very High Risk: LDL Greater than 189 MG/DL 116 UNABLE TO CALCULATE IND.BILI D.BILI IS <0.1 117 Anion gap measurement may be of limited value in the presence of any alkalosis, especially in a combined acid base disorder. . 118 Note change in reference range as of 12/22/07. The change was based on recommendations from the [place] [employer]. 119 Please note change in reference range effective 07 . 120 CHOLESTEROL INTERPRETATION: Desirable: Less than 200 MG/DL Borderline-High Risk: 200-239 MG/DL High-Risk: 240 MG/DL and over 121 HDL INTERPRETATION: Undesirable: High Risk: Less than 40 MG/DL Desirable: Low Risk: Greater than 60 MG/DL 122 LDL INTERPRETATION: Low Risk Optimal Level: LDL Less than 100 MG/DL Near or Above Optimal: LDL 100-129 MG/DL Borderline High Risk: LDL 130-159 MG/DL High Risk: LDL 160-189 MG/DL Very High Risk: LDL Greater than 189 MG/DL 123 Anion gap measurement may be of limited value in the presence of any alkalosis, especially in a combined acid base disorder. . 124 Note change in reference range as of 12/22/07. The change was based on recommendations from the [place] [employer]. 125 Please note change in reference range effective 07 . 126 CHOLESTEROL INTERPRETATION: Desirable: Less than 200 MG/DL Borderline-High Risk: 200-239 MG/DL High-Risk: 240 MG/DL and over 127 HDL INTERPRETATION: Undesirable: High Risk: Less than 40 MG/DL Desirable: Low Risk: Greater than 60 MG/DL 128 LDL INTERPRETATION: Low Risk Optimal Level: LDL Less than 100 MG/DL Near or Above Optimal: LDL 100-129 MG/DL Borderline High Risk: LDL 130-159 MG/DL High Risk: LDL 160-189 MG/DL Very High Risk: LDL Greater than 189 MG/DL 129 CHOLESTEROL INTERPRETATION: Desirable: Less than 200 MG/DL Borderline-High Risk: 200-239 MG/DL High-Risk: 240 MG/DL and over 130 HDL INTERPRETATION: Undesirable: High Risk: Less than 40 MG/DL Desirable: Low Risk: Greater than 60 MG/DL 131 LDL INTERPRETATION: Low Risk Optimal Level: LDL Less than 100 MG/DL Near or Above Optimal: LDL 100-129 MG/DL Borderline High Risk: LDL 130-159 MG/DL High Risk: LDL 160-189 MG/DL Very High Risk: LDL Greater than 189 MG/DL 132 Anion gap measurement may be of limited value in the presence of any alkalosis, especially in a combined acid base disorder. . 133 Please note change in reference range effective 07 . 134 Call results to [place] [phone] Classification: Desirable . 136 CALCULATED LDL APPROXIMATES THE VALUE OF A DIRECT LDL MEASUREMENT. Classification: Near or above optimal . 137 Anion gap measurement may be of limited value in the presence of any alkalosis, especially in a combined acid base disorder. . 138 PATIENT MAY HAVE RESULTS PER DOCTOR'S AUTHORIZATION. Questions regarding this report should be directed to your doctor. 139 * SERUM LEVELS OF PSA MEASURED USING THE WAYLON YAHAIRA ACCESS HYBRITECH IMMUNOASSAY SHOULD NOT BE INTERPRETED ABSOLUTE EVIDENCE OF THE PRESENCE OR ABSENCE OF DISEASE. THE PSA VALUE SHOULD BE USED IN CONJUNCTION WITH OTHER PERTINENT CLINICAL DIAGNOSTIC PROCEDURES. 140 Classification: High . 141 CALCULATED LDL APPROXIMATES THE VALUE OF A DIRECT LDL MEASUREMENT. Classification: Very High . Procedures Date Code Description Status 07/14/2017 25140 EKG Tracing & Interpretation Completed 09/06/2016 37805 Polysomnography Sleep Staging 4+ Parameters W/Cpap Completed 08/12/2016 81905 EKG Tracing & Interpretation Completed 07/22/2016 06039 ECHO Transthoracic, Real-Time 2D With Doppler And Completed Color Flow 07/15/2016 90139 ECHO Stress Test Incl Perf Contiuous ekg Monitoring Completed W/Phys Superv 07/06/2016 76808 Stress Test Completed 06/25/2016 90700 EKG Tracing & Interpretation Completed 12/28/2014 [id number] Colonoscopy Completed 03/13/2014 67963 Removal Skin Tags Up To 15 Completed 02/23/2014 31033 I&D Abscess Simple Completed 02/15/2013 21028 EKG Tracing & Interpretation Completed 02/15/2013 19905 EKG Tracing & Interpretation Completed 08/10/2012 00862 ECHO Stress Test Incl Perf Contiuous ekg Monitoring Completed W/Phys Superv 02/12/2012 [id number] Diabetic Foot Exam Completed 12/03/2011 31903 Holter Monitor Review (24 hr)dr [place] & guillermop only Completed 06/20/2004 [id number] Colonoscopy Completed Encounters Type Date Location Provider Dx Diagnosis Office Visit 12/28/2017 [facility] [place] F90.8 Attention-deficit 8:20a Sudha Hernandez M.D.,FACP hyperactivity [place] disorder, other type Office Visit 07/21/2017 [facility] Ciara Hess Z00.01 Encounter for 1:00p Sudha Hernandez M.D.,FACP general adult Rd medical exam w abnormal findings I25.10 Athscl heart disease of [place] coronary artery w/o ang pctrs I10 Essential (primary) hypertension G47.33 Obstructive sleep apnea (adult) (pediatric) F90.9 Attention-deficit hyperactivity disorder, unspecified type E29.1 Testicular hypofunction Z00.00 Encntr for general adult medical exam w/o abnormal findings Office Visit 07/14/2017 9:00a [facility] Orestes Maurer I25.10 Athdezl heart Christie Lopez disease of [place] coronary artery w/o ang pctrs I10 Essential (primary) hypertension E78.5 Hyperlipidemia, unspecified R73.01 Impaired fasting glucose I35.0 Nonrheumatic aortic (valve) stenosis Office Visit 05/06/2017 [facility] [place] M26.602 Left temporomandibular 10:00a Sudha Hernandez, joint disorderArianna Rd, M.D.,FACP unspecified J01.10 Acute frontal sinusitis, unspecified Office Visit 04/21/2017 [facility] G47.33 Obstructive sleep 9:15a Sleep Services Of CHUCK Huggins, RN, apnea (adult) [facility] ESCROW CLERK-BC (pediatric) Office Visit 01/07/2017 [facility] [place] I25.10 Athscl heart 10:00a Sudha Hernandez M.D.,FAC disease of [place] Rd coronary artery w/o ang pctrs I10 Essential (primary) hypertension Z23 Encounter for immunization Office Visit 10/14/2016 [facility] G47.33 Obstructive sleep 10:45a [facility] Huggins, RN, apnea (adult) [facility] ESCROW CLERK- (pediatric) Office Visit 09/21/2016 [facility] RINA Le E78.5 Hyperlipidemia, 1:30p unspecified I35.0 Nonrheumatic aortic (valve) stenosis I25.10 Athscl heart disease of [place] coronary artery w/o ang pctrs I10 Essential (primary) hypertension Office Visit 08/12/2016 3:00p [facility] Orestes Lopez, R06.83 Snoring Christie R01.1 Cardiac murmur, unspecified R07.9 Chest pain, unspecified I10 Essential (primary) hypertension E29.1 Testicular hypofunction R73.01 Impaired fasting glucose Office Visit 08/12/2016 10:15a [facility] Fadia Khan, R06.83 Snoring [facility] R40.0 Somnolence R12 Heartburn F90.9 Attention-deficit hyperactivity disorder, unspecified type Z79.899 Other rodent exterminator (current) drug therapy Office Visit 06/25/2016 1:40p [facility] [place] Z00.01 Encounter for Sudha Hernandez M.D.,[facility] general adult [address] medical exam w abnormal findings I10 Essential (primary) hypertension R01.1 Cardiac murmur, unspecified R07.9 Chest pain, unspecified E29.1 Testicular hypofunction Office Visit 08/30/2015 11:40a [facility] Internal Nicola Escoto, R05 Cough Sudha Muller M.D. 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 left foot M20.21 Hallux rigidus, right foot Office Visit 01/30/2015 10:30a [facility] [place] Z00.01 Encounter for Sudha Hernandez M.D.,FACP general adult [address] medical exam w abnormal findings I25.10 Athscl heart disease of [place] coronary artery w/o ang pctrs F90.8 Attention-deficit hyperactivity disorder, other type M19.079 Primary osteoarthritis, unspecified ankle and foot R73.01 Impaired fasting glucose V04.81 Need For Prophylactic Vaccination & Inoculation/Influenza Z23 Encounter for immunization Office Visit 10/23/2014 [facility] [place] 314.00 Attention Deficit 11:10a Sudha Hernandez M.D.,HUBER Disorder W/O [place] Mention Of Hyperactivity 414.01 Coronary Atherosclerosis [place] V76.51 Special Screening For Malignant Neoplasms Colon Office Visit 01/18/2014 9:00a [facility] Internal José Miguel Nye, 527.8 Salivary Gland Medicine - MIS SPECIALIST Disease Other Spec [place] Office Visit 12/13/2013 11:10a [facility] [place] V70.0 Examination General Buck Bryan M.D.,FACNena Routine AT [facility] Care Facility 414.01 Coronary Atherosclerosis [place] 314.01 Attention Deficit Disorder W/ Hyperactivity v04.89 Need For Prophylactic Vaccination & Inoculation Other Virus Office Visit 09/29/2013 10:00a [facility] Nena Vergara, 724.2 Lumbago Medicine - N.P. [place] Office Visit 08/01/2013 12:30p [facility] Nena Ursula, 465.9 URI Upper Medicine - N.P. Respiratory [place] Infections Acute Unspec Sites 462 Pharyngitis Acute Office Visit 05/23/2013 [facility] [place] 414.01 Coronary 9:50a [facility] M.D[facility] Atherosclerosis [place] 607.84 Impotence Organic Origin Office Visit 02/20/2013 [facility] [place] 414.01 Coronary 9:30a Sudha Hernandez M.D.,FACP Atherosclerosis [place] 607.84 Impotence Organic Origin 385.23 Ear [place] Discontinuity Or Dislocation v04.81 Need For Prophylactic Vaccination & Inoculation/Influenza Office Visit 08/19/2012 1:00p [facility] [place] V70.0 Examination Sud[facility] M.D[facility] General Medical [place] Routine AT [facility] 401.1 Hypertension Benign 414.01 Coronary Atherosclerosis [place] 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 Office Visit 07/11/2012 [facility] [place] 726.90 Enthesopathy Unspec 2:40p Sudha Hernandez M.D.,[facility] Site [place] Office Visit 05/13/2012 [facility] [place] 715.17 Osteoarthrosis 9:20a Sudha Hernandez M.D.,[facility] Localized Prim Ankle [place] & Foot 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 Office Visit 03/22/2012 9:30a [facility] [place] 461.0 Sinusitis Acute Sudha Hernandez M.D.,[facility] Maxillary [place] Office Visit 02/09/2012 10:50a [facility] [place] 401.1 Hypertension Sud[facility] M.D[facility] Benign [place] 414.01 Coronary Atherosclerosis [place] 607.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 Due To Solar [place] Radiation Office Visit 09/01/2011 10:10a Drill Setup Operator Internal [place] 729.2 Neuralgia Sudha Hernandez M.D.,[facility] Neuritis & [place] Radiculitis Unspec Office Visit 07/09/2011 1:20p Drill Setup Operator Internal [place] V70.0 Examination Sudha Hernandez M.D.,FACP General Medical [place] Routine AT [facility] 414.01 Coronary Atherosclerosis [place] 401.1 Hypertension Benign 314.00 Attention Deficit Disorder W/O Mention Of Hyperactivity V04.81 Need For Prophylactic Vaccination & Inoculation/Influenza V06.1 Vzlljbckzo-Fgwxsou-Qopvubcy Combined (DTaP) Office Visit 04/10/2010 DO Not Use Drill Setup Operator [place] 414.0 Coronary 1:40p AT Larry Hernandez M.D.,[facility] Atherosclerosis 719.45 Pain Joint Pelvic Region & Thigh Office Visit 03/17/2010 DO Not Use Drill Setup Operator Nicola 466.0 Bronchitis Acute 9:00a AT Larry Escoto M.D. Office Visit 06/10/2009 Orthopedic Jesús Castellano M.D. 727.09 Synovitis & 2:00p Services Of Tenosynovitis C.M.A. Other 724.2 Lumbago Office Visit 05/17/2009 11:20a DO Not Use Drill Setup Operator [place] 726.5 Enthesopathy Of AT Larry Hernandez M.D.,[facility] Hip Region 414.01 Coronary Atherosclerosis [place] Office Visit 03/15/2009 DO Not Use Drill Setup Operator [place] 715.15 Osteoarthrosis 11:40a AT Larry Hernandez M.D.,[facility] Localized Prim Pelvic & Thigh 401.1 Hypertension Benign Office Visit 02/13/2009 DO Not Use Drill Setup Operator [place] 414.01 Coronary 1:40p AT Larry Hernandez M.D.,[facility] Atherosclerosis [place] 847.2 Sprains & Strains Lumbar 726.5 Enthesopathy Of Hip Region 719.47 Pain Joint Ankle & Foot Office Visit 11/20/2008 DO Not Use Drill Setup Operator Jeaneth Mcmullen PA 272.2 Hyperlipidemia Mixed 9:00a AT [facility] 401.1 Hypertension Benign 847.2 Sprains & Strains Lumbar Office Visit 11/13/2008 DO Not Use Drill Setup Operator [place] 414.01 Coronary 8:40a AT [facility] Christie Hernandez,FACP Atherosclerosis [place] 272.2 Hyperlipidemia Mixed Office Visit 08/14/2008 8:40a DO Not Use Drill Setup Operator AT Good [place], 780.[address] [facility] Christie,FACP 272.2 Hyperlipidemia Mixed 401.1 Hypertension Benign Office Visit 03/27/2008 11:20a DO Not Use Drill Setup Operator [place] 401.[address] [facility] Christie Hernandez,FACP Benign 414.01 Coronary Atherosclerosis [place] Office Visit 02/14/2008 9:00a DO Not Use Drill Setup Operator [place] 272.[address] [facility] Christie Hernandez,FACP 414.01 Coronary Atherosclerosis [place] 302.72 Psychosexual Dysfunction W/ Inhibited Sexual Excitement Office Visit 11/23/2007 8:40a DO Not Use Drill Setup Operator [place] 786.51 Pain Precordial AT Branden[place]gn[place] Hernandez M.D.,FACP 530.81 Esophageal Reflux Office Visit 10/25/2007 DO Not Use Good D. 272.0 Hypercholesterolemia Pure 3:00p Drill Setup Operator AT [place]ry hernandez M.D.,FACP 401.1 Hypertension Benign V17.3 History Family Ischemic Heart Disease V70.0 Examination General Medical Routine AT Health Care Facility Office Visit 04/04/2007 DO Not Use [place] 272.0 Hypercholesterolemia Pure 3:20p Drill Setup Operator AT [place]ry M.D.,FACP 401.1 Hypertension Benign 314.01 Attention Deficit Disorder W/ Hyperactivity Plan of Treatment Future Appointment(s):07/25/2018 10:20 am - Good Hernandez M.D.,FACP at [facility] Internal Medicine - [address]04/13/2018 9:15 am - Patricia Huggins DNP, RN, ESCROW CLERK- BC at [facility]03/30/2018 - Good Hernandez M.D., FACPM25.551 Pain in right hipNew Therapy:Physical TherapyComments:Complete X- ray of RT hip as discussed. Follow up with physical therapy.I10 Essential ( primary) hypertensionComments:You are meeting target blood pressure. Continue low salt diet and current medicationsAerobic exercise 30 minutes 5 times per week should improve blood pressure.M62.82 RhabdomyolysisComments:We will recheck your creatinine kinase. Complete bloodwork as discussed. Goals 03/30/2018 - Good Hernandez M.D.,FACPI10 Essential (primary) hypertensionBlood pressure goal <140/90 in general. Blood pressure goal < 150/90 in people older than 75. Blood pressure goal <130/85 in diabetic patients. Goal BMI is less than 25.
[2018-04-21 18:09] LABS: ABS Basophils 0.1 10^3/ul (0-0.2); ABS Eosinophils 0.1 10^3/ul (0-0.6); ABS Monocytes 0.5 10^3/ul (0-0.8); ABS Neutrophils 5.7 10^3/ul (1.5-7.7); ABS Nucleated RBC 0 10^3/ul; Eosinophil % 0.9 %; Hematocrit 41 % (42-52); Hemoglobin 13.7 g/dl (14.0-18.0); Lymphocyte % 13.8 %; Mean Corpuscular HGB Conc 34 g/dl (31-36); Mean Corpuscular Hemoglobin 29 pg (27-31); Mean Corpuscular Volume 85 fL (80-94); Mean Platelet Volume 7.3 fL (7.4-10.4); Nucleated Red Blood Cells % 0; Platelet Count 252 10^3/ul (150-450); Red Blood Count 4.79 10^6/ul (4.00-5.40); Red Cell Distribution Width 14 % (10.5-15); White Blood Count 7.3 10^3/ul (3.5-10.8)
[2018-04-21 18:27] LABS: Albumin 4.4 g/dL (3.2-5.2); Albumin/Globulin Ratio 1.6 (1-3); BUN/Creatinine Ratio 20.6 (8-20); Calcium 9.6 mg/dL (8.6-10.3); EGFR Non-African American 52.6 (>60); Globulin 2.7 g/dL (2-4); Potassium 4.2 mmol/L (3.5-5.0); Total Bilirubin 0.5 mg/dL (0.2-1.0); Total Protein 7.1 g/dL (6.4-8.9)
--- NOTE | 2018-04-21 19:31 | ED ---
Progress - Progress Note Progress Note: Pt was signed out by Dr. Russell to Dr. Macias, awaiting troponin results. Re-Evaluation - Re-Evaluation First Eval Re-Evaluation Time: 18:55 Course/Dx - Course Course Of Treatment: The patient was signed out by Dr. Russell to Dr. Macias, awaiting the results of a troponin test. Patient will be discharged with follow up from Dr. Hernandez. The patient is agreeable with this plan. - Diagnoses Provider Diagnoses: Chest pain Discharge - Sign-Out/Discharge Documenting (check all that apply): Patient Departure - discharge Receiving patient FROM: Dangelo Russell - Discharge Plan Condition: Good Disposition: HOME Patient Education Materials: Chest Pain (ED) Referrals: Good Hernandez MD [Primary Care Provider] - Additional Instructions: Your PCP or corner bead operator may want to order another stress test of some sort, so make sure to followup in the next week. If you have recurrent symptoms you should return here. Hold on vigorous exercise until you are cleared by your doctor. You can do less vigorous things like walking. - Billing Disposition and Condition Condition: GOOD Disposition: Home - Attestation Statements Document Initiated by Tuan: Yes Documenting Scribe: Regan Cotton Provider For Whom Tuan is Documenting (Include Credential): Dangelo Macias MD Scribe Attestation: IRegan scribed for Dangelo Macias MD on 04/22/18 at 0235. Scribe Documentation Reviewed: Yes Provider Attestation: The documentation as recorded by the Regan manuel accurately reflects the service I personally performed and the decisions made by me, Dangelo Macias MD Status of Scribe Document: Viewed
[2018-04-21 22:06] VITALS: BP 112/77
== END 2018-04-21 22:18 | disposition home or self-care (01) ==
LOC: ED 16:11
DX: R07.9 Chest pain, unspecified (principal); I10 Essential (primary) hypertension; E78.5 Hyperlipidemia, unspecified; Z79.82 Long term (current) use of aspirin; E78.00 Pure hypercholesterolemia, unspecified
CPT/HCPCS: 36415; 71046; 80053; 83605; 84484; 85025; 85379; 93005; 99284